=== PATIENT | female | born 1940 | race Caucasian/White ===

== ENCOUNTER 2021-04-05 11:15 | Emergency (ER) | payer MEDICARE, OTHER ==
--- NOTE | 2021-04-05 11:36 | ERPHSYRPT ---
- History of Present Illness Time Seen by Provider: 04/05/21 11:20 Source: patient Exam Limitations: no limitations Patient Subjective Stated Complaint: Left ankle injury Triage Nursing Assessment: Patient brought into ED via EMS and transferred to bed with assist of 2. Patient A +O X 3. Patient's skin pink, warm and dry. Patient complains of left outer ankle pain that started yesterday 07/22. Patient states yesterday eveving she was walking with her walker and heard a "pop" from her left ankle. Patient states the pain is left outer ankle. Swelling noted to left outer ankle. Physician History: Patient is a 80-year-old female presents to our emergency department for evaluation of left ankle pain. Patient states she was ambulating in her walker when she felt a pop sensation. This occurred yesterday. Patient states she ambulated with her walker this morning and felt another pop with sudden onset of pain primarily at the left lateral ankle. No twisting injuries observed. No falls. No fever. Patient arrived via EMS. She received 4 mg of morphine and 4 mg of Zofran in route. Patient is resting comfortably and declined additional pain medication. Pain described as an ache that is localized. No radiation. Pain worse with palpation and movement. Pain improved with rest. She voices no other complaints or concerns at this time. Method of Injury: other (Pain started while patient was ambulating with a walker. No falls or trauma. No injury observed otherwise.) Occurred: yesterday Quality: constant Severity of Pain-Max: moderate Severity of Pain-Current: mild Lower Extremities Pain: ankle: left Modifying Factors: Improves With: movement Associated Symptoms: none Allergies/Adverse Reactions: No Known Drug Allergies Allergy (Unverified 04/05/21 11:18) Hx Influenza Vaccination/Date Given: Yes Hx Pneumococcal Vaccination/Date Given: No Immunizations Up to Date: Yes Travel Risk - International Travel Have you traveled outside of the country in past 3 weeks: No - Coronavirus Screening Are you exhibiting any of the following symptoms?: No Close contact with a COVID-19 positive Pt in past 14-21 Days: No - Vaccine Status Have you recieved a Covid-19 vaccination: No - Review of Systems Constitutional: No Symptoms, No Fever, No Chills Eyes: No Symptoms Ears, Nose, & Throat: No Symptoms Respiratory: No Symptoms, No Cough, No Dyspnea Cardiac: No Symptoms, No Chest Pain, No Edema, No Syncope Abdominal/Gastrointestinal: No Symptoms, No Abdominal Pain, No Nausea, No Vomiting, No Diarrhea Genitourinary Symptoms: No Symptoms, No Dysuria Musculoskeletal: No Symptoms, No Back Pain, No Neck Pain Skin: No Symptoms, No Rash Neurological: No Symptoms, No Dizziness, No Focal Weakness, No Sensory Changes Psychological: No Symptoms Endocrine: No Symptoms Hematologic/Lymphatic: No Symptoms Immunological/Allergic: No Symptoms All Other Systems: Reviewed and Negative - Past Medical History Neurological History: No Pertinent History ENT History: No Pertinent History Cardiac History: Arrhythmia, High Cholesterol, Hypertension Endocrine Medical History: No Pertinent History Musculoskeletal History: No Pertinent History GI Medical History: No Pertinent History History: No Pertinent History Psycho-Social History: Anxiety Female Reproductive Disorders: No Pertinent History Other Medical History: a fib - Past Surgical History Past Surgical History: Yes Musculoskeletal: Orthopedic Surgery Other Surgical History: back surgery X 2 - Social History Smoking Status: Never smoker Exposure to second hand smoke: No Drug Use: none Patient Lives Alone: No - Nursing Vital Signs Nursing Vital Signs: Initial Vital Signs Temperature 97.6 F 04/05/21 11:18 Pulse Rate 113 H 04/05/21 11:18 Respiratory Rate 18 04/05/21 11:18 Blood Pressure 147/87 04/05/21 11:18 O2 Sat by Pulse Oximetry 94 L 04/05/21 11:18 Pain Scale Pain Intensity 3 - Physical Exam General Appearance: alert Eyes, Ears, Nose, Throat Exam: moist mucous membranes Neck Exam: non-tender, supple Cardiovascular/Respiratory Exam: chest non-tender, normal breath sounds, regular rate/rhythm, no respiratory distress Gastrointestinal/Abdominal Exam: non-tender, guarding Back Exam: normal inspection, No vertebral tenderness Hips Exam: bilateral: non-tender, normal inspection, normal range of motion, no evidence of injury Legs Exam: bilateral leg: non-tender, normal inspection, normal range of motion, no evidence of injury Knees Exam: bilateral knee: non-tender, normal inspection, normal range of motion, no evidence of injury Ankle Exam: right ankle: non-tender, normal inspection, normal range of motion, no evidence of injury, left ankle: pain, soft tissue tenderness, swelling, other (Left lower extremities neurovascular intact distally. Compartments are soft. Cap refill less than 2 seconds. PT DP pulse palpable. Tenderness to palpation lateral malleolus.) Foot Exam: bilateral foot: non-tender, normal inspection, normal range of motion, no evidence of injury, other (Chronic bilateral lower extremity pitting edema.) Neuro/Tendon Exam: normal sensation, normal motor functions Mental Status Exam: alert, oriented x 3, cooperative Skin Exam: normal color, warm, dry SpO2 Interpretation: normal SpO2: 94 O2 Delivery: Room Air - Course Nursing assessment & vital signs reviewed: Yes - Radiology Exams Ankle X-ray Interpretation: Teleradiologist Report (Mild osteopenia small plantar heel spur moderate soft tissue swelling and mild scattered vascular calcifications. No other bony articular or soft tissue abnormalities.) Ordered Tests: Active Orders 24 hr Category Date Time Status ANKLE (3 VIEWS) Stat Exams 04/05/21 11:22 Completed - Progress Progress: improved Progress Note: Patient reassessed. Pain is well controlled. X-ray negative for fracture dislocation. No indication for further work-up at this time. Patient voices no other complaints concerns this time. Portions of this note were created with voice recognition technology. There may be grammatical, spelling, punctuation or sound alike errors 04/05/21 12:13 Counseled pt/family regarding: diagnosis, need for follow-up, rad results - Departure Departure Disposition: Home Clinical Impression: Ankle pain, Osteopenia, Plantar heel spur, Vascular calcification Condition: Stable Critical Care Time: No Instructions: Ankle Sprain (DC) Additional Instructions: Discharge/Care Plan Tracy Siddiqui was seen on 04/05/21 in the Emergency Room. The patient was counseled regarding Diagnosis,Lab results, Imaging studies, need for follow up and when to return to the Emergency Room. Prescriptions given: Discharge Note I have spoken with the patient and/or caregivers. I have explained the patient's condition, diagnosis and treatment plan based on the information available to me at this time. I have answered the patient's and/or caregiver's questions and addressed any concerns. The patient and/or caregivers have as good understanding of the patient's diagnosis, condition and treatment plan as can be expected at this point. The vital signs have been stable. The patient's condition is stable and appropriate for discharge from the emergency department. The patient will pursue further outpatient evaluation with the primary care physician or other designated or consulting physician as outlined in the discharge instructions. The patient and/or caregivers are agreeable to this plan of care and follow-up instructions have been explained in detail. The patient and/or caregivers have received these instruction. The patient/and or caregivers are aware that any significant change in condition or worsening of symptoms should prompt an immediate return to this or the closest emergency department or call 911.
--- NOTE | 2021-04-05 12:08 | XRAY ---
Indication: Pain following injury. Comparison: None 3 view left ankle demonstrates mild osteopenia, small plantar heel spur, moderate soft tissue swelling, and mild scattered vascular calcifications. No other bony, articular, or soft tissue abnormalities.
[2021-04-05] MEDS ORDERED: TYLENOL 325 MG PO STA (12:36)
[2021-04-05] MEDS ORDERED: TYLENOL 325 MG ONE (12:37)
[2021-04-05 17:11] VITALS: BP 116/74; PULSE 107; O2SAT 97
== END 2021-04-05 12:55 | disposition home or self-care (01) ==
LOC: ED 11:15
DX: M25.572 Pain in left ankle and joints of left foot (principal); M85.872 Other specified disorders of bone density and structure, left ankle and foot; M77.32 Calcaneal spur, left foot; I70.202 Unspecified atherosclerosis of native arteries of extremities, left leg; I10 Essential (primary) hypertension; E78.5 Hyperlipidemia, unspecified
CPT/HCPCS: 73610; 99284; A9270-GY

== ENCOUNTER 2021-04-23 21:56 | Emergency (ER) | payer MEDICARE, OTHER ==
[2021-04-23 22:20] VITALS: O2SAT 97
--- NOTE | 2021-04-23 22:37 | ERPHSYRPT ---
- History of Present Illness Time Seen by Provider: 04/23/21 22:05 Patient Subjective Stated Complaint: Patient states she was in her bathroom around 9pm tonight and when she went to stand up from the toilet, she heard her left ankle pop and felt a sharp pain in it. She states the initial pain in her ankle was a #10 out of #10 until the MS that she received on the ambulance started to work. Current pain level is a #3. States pain is on the outside of her left foot and left ankle. Triage Nursing Assessment: Patient arrived to ED via ambulance. She is alert and oriented and answering questions appropriately. Patient noted to have edema to both BLE. Left outer foot/ankle is a little more swollen than the right foot/ankle. No bruising, redness, or warmth noted to LLE. She states skin tone to both BLE are normal for her related to her neuropathy. CMS checks to left foot/toes WNL. Pedal pulse present. Patient is not SOB but arrived wearing 02 at 2L per N/C due to MS administration in ambulance. Current 02 sats 97%. Physician History: Patient is an 80-year-old white female who presents with a complaint of ankle pain and foot pain. On the right side. She has had pain in the right ankle and foot for going on 3 weeks the pain has varied in intensity and she has been seen and x-rayed in our ER prior to tonight. Tonight she was on the commode she stood up and felt a pop in the right ankle and lateral foot and had increased pain which she rated 10 of 10. EMS treated her pain with EMS and brought her to the ER. Method of Injury: unknown Occurred: days ago Quality: intermittent, stabbing Severity of Pain-Max: moderate Severity of Pain-Current: mild Lower Extremities Pain: foot: right, ankle: right Modifying Factors: Improves With: movement Associated Symptoms: unable to bear weight, popping sensation Allergies/Adverse Reactions: No Known Drug Allergies Allergy (Verified 04/23/21 21:58) Hx Tetanus, Diphtheria Vaccination/Date Given: Yes Hx Influenza Vaccination/Date Given: Yes Hx Pneumococcal Vaccination/Date Given: No Immunizations Up to Date: Yes Travel Risk - International Travel Have you traveled outside of the country in past 3 weeks: No - Coronavirus Screening Are you exhibiting any of the following symptoms?: No Close contact with a COVID-19 positive Pt in past 14-21 Days: No - Vaccine Status Have you recieved a Covid-19 vaccination: No - Review of Systems Constitutional: No Fever, No Chills Eyes: No Symptoms Ears, Nose, & Throat: No Symptoms Respiratory: No Cough, No Dyspnea Cardiac: No Chest Pain, No Edema, No Syncope Abdominal/Gastrointestinal: No Abdominal Pain, No Nausea, No Vomiting, No Diarrhea Genitourinary Symptoms: No Dysuria Musculoskeletal: Joint Pain, No Back Pain, No Neck Pain Skin: No Rash Neurological: No Dizziness, No Focal Weakness, No Sensory Changes Psychological: No Symptoms Endocrine: No Symptoms All Other Systems: Reviewed and Negative - Past Medical History Pertinent Past Medical History: Yes Neurological History: Peripheral Neuropathy ENT History: No Pertinent History Cardiac History: Arrhythmia, High Cholesterol, Hypertension Respiratory History: No Pertinent History Endocrine Medical History: Diabetes Type II Musculoskeletal History: No Pertinent History GI Medical History: No Pertinent History History: No Pertinent History Psycho-Social History: Anxiety Female Reproductive Disorders: No Pertinent History Other Medical History: a fib, history of left ankle fracture that did not require surgery - Past Surgical History Past Surgical History: Yes Gastrointestinal: Cholecystectomy Musculoskeletal: Orthopedic Surgery Female Surgical History: Hysterectomy Other Surgical History: back surgery X 2, lumpectomy, 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) - Social History Smoking Status: Never smoker Exposure to second hand smoke: No Drug Use: none Patient Lives Alone: No - Female History Hx Now: No - Nursing Vital Signs Nursing Vital Signs: Initial Vital Signs Temperature 98.2 F 04/23/21 21:58 Pulse Rate 95 H 04/23/21 21:58 Respiratory Rate 16 04/23/21 21:58 Blood Pressure 143/91 04/23/21 21:58 O2 Sat by Pulse Oximetry 97 04/23/21 21:58 Pain Scale Pain Intensity 3 - Physical Exam General Appearance: mild distress Eyes, Ears, Nose, Throat Exam: moist mucous membranes Neck Exam: non-tender, supple Back Exam: normal inspection, normal range of motion Hips Exam: bilateral: non-tender, normal inspection Legs Exam: bilateral leg: non-tender, normal inspection Knees Exam: bilateral knee: non-tender, normal inspection Ankle Exam: right ankle: bone tenderness, pain, soft tissue tenderness Foot Exam: right foot: bone tenderness, soft tissue tenderness, swelling SpO2: 97 - Course Nursing assessment & vital signs reviewed: Yes - Radiology Exams Ankle X-ray Interpretation: Interpreted by me, Other (Somewhat displaced fracture of the left tibia and fibula) Ordered Tests: Active Orders 24 hr Category Date Time Status Splint STAT Care 04/23/21 22:53 Active ANKLE (3 VIEWS) Stat Exams 04/23/21 Taken FOOT (MINIMUM 3 VIEWS) Stat Exams 04/23/21 Taken - Progress Progress: improved - Departure Departure Disposition: Home Clinical Impression: Fracture of left tibia and fibula Condition: Stable Critical Care Time: No Referrals: CRUZ GONZALES, INTEL ANALYST [Primary Care Provider] - Follow up/PCP as directed Instructions: Shinbone Fracture (DC), Fibula Fracture (DC) Prescriptions: Hydrocodone/Acetaminophen [Hydrocodone-Acetamin 5-325 mg] 1 tab PO Q6HPRN PRN 3 Days #12 tablet MDD 4 PRN Reason: Pain
[2021-04-23] MEDS ORDERED: NORCO 5/325 MG PO ONE (23:02)
[2021-04-23] MEDS ORDERED: MORPHINE SULFATE 4 MG INJ IV ONE (23:04)
[2021-04-23] MEDS ORDERED: NORCO 5/325 MG ONE (23:14)
[2021-04-23] MEDS ORDERED: MORPHINE SULFATE 4 MG INJ ONE (23:15)
[2021-04-24 00:13] VITALS: BP 128/70; PULSE 71
--- NOTE | 2021-04-24 07:47 | XRAY ---
Indication: Pain following fall. Comparison: April 05, 2021. 3 view left ankle demonstrates new mild lateral angulated fractures of the distal shafts of tibia/fibula with soft tissue swelling. Tibial fracture appears comminuted. Again osteopenia and tiny heel spurs.
--- NOTE | 2021-04-24 07:49 | XRAY ---
Indication: Pain following fall. Comparison: None 3 nonweightbearing views left foot demonstrates osteopenia, mild 1st MTP bunion deformity, and tiny heel spurs. No other bony, articular, or soft tissue abnormalities. Tibia/fibula fractures reported separately.
== END 2021-04-24 00:58 | disposition home or self-care (01) ==
LOC: ED 21:56
DX: M84.462A Pathological fracture, left tibia, initial encounter for fracture (principal); M84.464A Pathological fracture, left fibula, initial encounter for fracture; E11.42 Type 2 diabetes mellitus with diabetic polyneuropathy; I10 Essential (primary) hypertension; E78.5 Hyperlipidemia, unspecified; Z79.891 Long term (current) use of opiate analgesic
CPT/HCPCS: 73610; 73630; 96374; 99284; J2270; L4386; A9270-GY

== ENCOUNTER 2024-01-15 01:10 | Inpatient (IN) | payer MEDICARE, OTHER ==
--- NOTE | 2024-01-15 01:22 | ERPHSYRPT ---
- History of Present Illness Time Seen by Provider: 01/15/24 01:20 Source: patient, family, EMS Exam Limitations: no limitations Physician History: 83yo f presents via EMS for sob x 1wk. Pt reports she has been having worsening sob for the past week, reports it worsened today. Pt's reports she has been more fatigued for the past 2 days as well as complaining of worsening sob. Pt denies any chest pain, does report significant hx of CHF and afib, is currently taking eliquis. Pt denies any recent fevers, denies any n/v/d or abdominal pain. Pt denies any recent hospitalizations or surgeries. Timing/Duration: week(s) (1), gradual onset Activities at Onset: none Severity of Pain-Max: none Severity of Pain-Current: none Modifying Factors: Improves With: nothing Nitro Today/Relief: no nitro taken today Aspirin Treatment Today: no aspirin today Allergies/Adverse Reactions: No Known Drug Allergies Allergy (Verified 01/15/24 01:34) Home Medications: Acetaminophen [Tylenol] 325 mg PO DAILY PRN PRN 01/15/24 [History] Alendronate Sodium 70 mg [Fosamax 70 MG] 70 mg PO WEEKLY 01/15/24 [History] Amiodarone HCl 200 mg [Cordarone 200 MG] 200 mg PO UD 01/15/24 [History] Apixaban [Eliquis 2.5 mg Tablet] 2.5 mg PO BID 01/15/24 [History] Aripiprazole [Abilify] 2 mg PO DAILY 01/15/24 [History] Calcium Carb, Citrate/Vit D3 [Calcium + D3 ER Tablet] 1 tab PO DAILY 01/15/24 [History] Dulaglutide [Trulicity] 0.75 mg IN WEEKLY 01/15/24 [History] Duloxetine HCl 60 mg PO HS 01/15/24 [History] Fluticasone/Vilanterol [Breo Ellipta 100-25 Mcg Inhalr] 1 inhaler IH DAILY 01/15/24 [History] Furosemide 20 mg [Lasix 20 mg] 20 mg PO BID 01/15/24 [History] Gabapentin 400 mg PO DAILY 01/15/24 [History] Levothyroxine Sodium 100 Mcg [Synthroid 100 Mcg] 100 mcg PO DAILY 01/15/24 [History] Losartan Potassium 50 mg PO DAILY 01/15/24 [History] Meloxicam 7.5 mg PO DAILY 01/15/24 [History] Metoprolol Succinate 50 mg PO BID 01/15/24 [History] Multivitamin/Iron/Folic Acid [Centrum Adults Tablet] 1 tab PO DAILY 01/15/24 [History] PANTOPRAZOLE 40 mg Tablet [Protonix 40MG Tablet] 40 mg PO DAILY 01/15/24 [History] Potassium Citrate [Potassium Citrate ER] 10 meq PO BID 01/15/24 [History] Pravastatin Sodium 20 mg PO DAILY 01/15/24 [History] dilTIAZem HCL [Cardizem Cd] 300 mg PO DAILY 01/15/24 [History] Hx Tetanus, Diphtheria Vaccination/Date Given: Yes Hx Influenza Vaccination/Date Given: Yes Hx Pneumococcal Vaccination/Date Given: No - Review of Systems Constitutional: Fatigue, No Fever, No Chills Respiratory: Cough, Dyspnea, Dyspnea on Exertion (CHERY), No Stridor, No Wheezing Cardiac: Edema, Orthopnea, No Chest Pain, No Palpitations, No Syncope Abdominal/Gastrointestinal: No Symptoms - Past Medical History Pertinent Past Medical History: Yes Neurological History: Peripheral Neuropathy ENT History: No Pertinent History Cardiac History: Arrhythmia, High Cholesterol, Hypertension Respiratory History: No Pertinent History Endocrine Medical History: Diabetes Type II Musculoskeletal History: No Pertinent History GI Medical History: No Pertinent History History: No Pertinent History Psycho-Social History: Anxiety Female Reproductive Disorders: No Pertinent History Other Medical History: a fib, history of left ankle fracture that did not require surgery - Past Surgical History Past Surgical History: Yes Gastrointestinal: Cholecystectomy Musculoskeletal: Orthopedic Surgery Female Surgical History: Hysterectomy Other Surgical History: back surgery X 2, lumpectomy, 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) - Social History Smoking Status: Never smoker Exposure to second hand smoke: No Drug Use: none Patient Lives Alone: No - Nursing Vital Signs Nursing Vital Signs: Initial Vital Signs Temperature 97.5 F 01/15/24 01:11 Pulse Rate 108 H 01/15/24 01:11 Respiratory Rate 12 01/15/24 01:11 Blood Pressure 162/107 01/15/24 01:11 O2 Sat by Pulse Oximetry 95 01/15/24 01:11 Pain Scale Pain Intensity 5 - Physical Exam General Appearance: no apparent distress, alert, lethargy Eye Exam: PERRL/EOMI, eyes nml inspection Respiratory Exam: airway intact, diminished breath sounds, crackles/rales, No chest tenderness, No respiratory distress, No rhonchi, No wheezing, No stridor Cardiovascular Exam: irregular (irregularly irregular rhythm), edema (3+ b/l LE edema) Gastrointestinal/Abdomen Exam: soft, normal bowel sounds, No tenderness, No distention Neurologic Exam: alert, oriented x 3, cooperative Skin Exam: normal color, warm, dry SpO2 Interpretation: normal SpO2: 99 (5L) O2 Delivery: Nasal Cannula - Course EKG Interpreted by Me: RATE (88), A-fib, prolonged QT interval (509), Other (no acute ST elevations, not suggestive of acute ischemia) Ordered Tests: Active Orders 24 hr Category Date Time Status Srinivasan [Catheter-[place]itt[place] Srinivasan] STAT Care 01/15/24 01:41 Active IV Insertion STAT Care 01/15/24 01:30 Active IV Insertion-2nd Peripheral STAT Care 01/15/24 01:20 Active Oxygen-ED Only Nasal Cannula 5 lpm Care 01/15/24 01:35 Active CHEST 1 VIEW (PORTABLE) Stat Exams 01/15/24 01:20 Taken HEAD WITHOUT CONTRAST [CT] Stat Exams 01/15/24 02:05 Completed ARTERIAL BLOOD GASES Urgent Lab 01/15/24 01:31 Completed BLOOD CULTURE Stat Lab 01/15/24 02:01 Ordered CBC W DIFF Stat Lab 01/15/24 01:55 Completed CMP Stat Lab 01/15/24 01:55 Completed CULTURE,URINE Stat Lab 01/15/24 01:38 Received D-DIMER QUANTITATIVE Stat Lab 01/15/24 01:55 Completed Lactic Acid Stat Lab 01/15/24 01:30 Completed NT PRO BNPII Stat Lab 01/15/24 01:55 Completed PROCALCITONIN Stat Lab 01/15/24 02:01 Completed TROPONIN Q4H Lab 01/15/24 01:55 Completed TROPONIN Q4H Lab 01/15/24 05:30 Ordered TROPONIN Q4H Lab 01/15/24 09:30 Ordered UA W/RFX UR CULTURE Stat Lab 01/15/24 01:38 Completed BiPap/CPAP STAT RT 01/15/24 01:44 Active Medication Summary Generic Name Dose Route Start Last Admin Trade Name Maximiliano PRN Reason Stop Dose Admin Ceftriaxone Sodium 1 gm in 100 mls @ 200 mls/hr 01/15/24 02:47 01/15/24 02:50 Rocephin 1 Gm / 100 Ml Nacl IV 01/15/24 03:16 200 mls/hr STAT ONE 200 mls/hr Administration Discontinued Medications Generic Name Dose Route Start Last Admin Trade Name Maximiliano PRN Reason Stop Dose Admin Acetaminophen 650 mg 01/15/24 02:06 01/15/24 02:09 Acetaminophen 325 Mg Tablet PO 01/15/24 02:07 650 mg STAT ONE Administration Acetaminophen Confirm 01/15/24 02:08 Acetaminophen 325 Mg Tablet Administered 01/15/24 02:09 Dose 650 mg .ROUTE .STK-MED ONE Furosemide 40 mg 01/15/24 01:20 01/15/24 01:26 Furosemide 40 Mg/4 Ml Vial IV 01/15/24 01:21 40 mg STAT ONE Administration Furosemide Confirm 01/15/24 01:25 Furosemide 40 Mg/4 Ml Vial Administered 01/15/24 01:26 Dose 40 mg .ROUTE .STK-MED ONE Ceftriaxone Sodium Confirm 01/15/24 02:49 Rocephin 1 Gm / 100 Ml Nacl Administered 01/15/24 02:50 Dose 1 gm in 100 mls @ ud IV .STK-MED ONE Lab/Rad Data: Laboratory Result Diagrams 01/15/24 01:55 01/15/24 01:55 Laboratory Results 01/15/24 01/15/24 01/15/24 Range/Units 02:01 01:55 01:55 WBC (3.98-10.04) x10^3/uL RBC (3.93-5.22) x10^6/uL Hgb (11.2-15.7) g/dL Hct (34.1-44.9) % MCV (79.4-94.8) fL MCH (25.6-32.2) pg MCHC (32.2-35.5) g/dL RDW (11.7-14.4) % Plt Count (182-369) x10^3/uL MPV (9.4-12.3) fL Gran % (34.0-71.1) % Immature Gran % (Auto) (0.001-0.429) % Nucleat RBC Rel Count (0.00-0.2) % Eos # (Auto) (0.04-0.36) x10^3/uL Immature Gran # (Auto) (0.001-0.031) x10^3u/L Absolute Lymphs (auto) (1.18-3.74) x10^3/uL Absolute Monos (auto) (0.24-0.86) x10^3/uL Absolute Nucleated RBC (0.00-0.012) x10^3u/L Lymphocytes % (19.3-51.7) % Monocytes % (4.7-12.5) % Eosinophils % (0.7-5.8) % Basophils % (0.1-1.2) % Absolute Granulocytes (1.56-6.13) x10^3/uL Basophils # (0.01-0.08) x10^3/uL D-Dimer (0.0-0.50) mg/L Puncture Site pCO2 (35-45) mmHg pO2 (75-100) mmHg Base Excess (-2.0-2.0) O2 Saturation (94-100) g/dF ABG pH (7.35-7.45) ABG HCO3 (22-28) ABG O2 Sat (Measured) (95-100) % Loyd Test A-a Gradient a/A Ratio Hemoglobin Carboxyhemoglobin (0.0-6.9) % THgb Methemoglobin (1.4-1.5) % Potassium (3.5-5.1) Temperature C POC O2 Flow Rate % Vent Mode Vent Rate /MIN Tidal Volume cc PEEP cmH2O Expiratory BiPAP Sodium (135-145) mmol/L Chloride (98-107) mmol/L Carbon Dioxide (22-30) mmol/L Anion Gap (5-15) MEQ/L BUN (7-17) mg/dL Creatinine (0.52-1.04) mg/dL Estimated GFR ML/MIN Glucose (74-106) mg/dL Lactic Acid (0.4-2.0) Calcium (8.4-10.2) mg/dL Total Bilirubin (0.2-1.3) mg/dL AST (14-36) U/L ALT (0-35) U/L Alkaline Phosphatase (38-126) U/L Troponin I (0.000-0.033) ng/mL NT-Pro-B Natriuret Pep 819 (<300) pg/mL Serum Total Protein (6.3-8.2) g/dL Albumin (3.5-5.0) g/dL Procalcitonin 0.063 (0.030-0.080) ng/mL Urine Color (Yellow) Urine Appearance (Clear) Urine pH (4.6-8.0) Ur Specific Maurice (1.005-1.030) Urine Protein (Negative) Urine Glucose (UA) (Negative) mg/dL Urine Ketones (Negative) Urine Blood (Negative) Urine Nitrite (Negative) Urine Bilirubin (Negative) Urine Urobilinogen (0.2) mg/dL Ur Leukocyte Esterase (Negative) U Hyaline Cast (Auto) (0-2) /LPF Urine Microscopic RBC (0-5) /HPF Urine Microscopic WBC (0-5) /HPF Ur Epithelial Cells (None Seen) /HPF Urine Bacteria (None Seen) /HPF Urine Culture Reflexed (NO) Influenza Type A Ag NEGATIVE (NEGATIVE) Influenza Type B Ag NEGATIVE (NEGATIVE) RSV (PCR) NEGATIVE (NEGATIVE) SARS-CoV-2 (PCR) NEGATIVE (NEGATIVE) 01/15/24 01/15/24 01/15/24 Range/Units 01:55 01:55 01:55 WBC (3.98-10.04) x10^3/uL RBC (3.93-5.22) x10^6/uL Hgb (11.2-15.7) g/dL Hct (34.1-44.9) % MCV (79.4-94.8) fL MCH (25.6-32.2) pg MCHC (32.2-35.5) g/dL RDW (11.7-14.4) % Plt Count (182-369) x10^3/uL MPV (9.4-12.3) fL Gran % (34.0-71.1) % Immature Gran % (Auto) (0.001-0.429) % Nucleat RBC Rel Count (0.00-0.2) % Eos # (Auto) (0.04-0.36) x10^3/uL Immature Gran # (Auto) (0.001-0.031) x10^3u/L Absolute Lymphs (auto) (1.18-3.74) x10^3/uL Absolute Monos (auto) (0.24-0.86) x10^3/uL Absolute Nucleated RBC (0.00-0.012) x10^3u/L Lymphocytes % (19.3-51.7) % Monocytes % (4.7-12.5) % Eosinophils % (0.7-5.8) % Basophils % (0.1-1.2) % Absolute Granulocytes (1.56-6.13) x10^3/uL Basophils # (0.01-0.08) x10^3/uL D-Dimer 0.50 (0.0-0.50) mg/L Puncture Site pCO2 (35-45) mmHg pO2 (75-100) mmHg Base Excess (-2.0-2.0) O2 Saturation (94-100) g/dF ABG pH (7.35-7.45) ABG HCO3 (22-28) ABG O2 Sat (Measured) (95-100) % Loyd Test A-a Gradient a/A Ratio Hemoglobin Carboxyhemoglobin (0.0-6.9) % THgb Methemoglobin (1.4-1.5) % Potassium 4.1 (3.5-5.1) Temperature C POC O2 Flow Rate % Vent Mode Vent Rate /MIN Tidal Volume cc PEEP cmH2O Expiratory BiPAP Sodium 134 L (135-145) mmol/L Chloride 95 L (98-107) mmol/L Carbon Dioxide 29 (22-30) mmol/L Anion Gap 13.6 (5-15) MEQ/L BUN 14 (7-17) mg/dL Creatinine 0.60 (0.52-1.04) mg/dL Estimated GFR 89.0 ML/MIN Glucose 115 H (74-106) mg/dL Lactic Acid (0.4-2.0) Calcium 8.9 (8.4-10.2) mg/dL Total Bilirubin 0.90 (0.2-1.3) mg/dL AST 36 (14-36) U/L ALT 22 (0-35) U/L Alkaline Phosphatase 115 (38-126) U/L Troponin I < 0.012 (0.000-0.033) ng/mL NT-Pro-B Natriuret Pep (<300) pg/mL Serum Total Protein 7.1 (6.3-8.2) g/dL Albumin 3.7 (3.5-5.0) g/dL Procalcitonin (0.030-0.080) ng/mL Urine Color (Yellow) Urine Appearance (Clear) Urine pH (4.6-8.0) Ur Specific Maurice (1.005-1.030) Urine Protein (Negative) Urine Glucose (UA) (Negative) mg/dL Urine Ketones (Negative) Urine Blood (Negative) Urine Nitrite (Negative) Urine Bilirubin (Negative) Urine Urobilinogen (0.2) mg/dL Ur Leukocyte Esterase (Negative) U Hyaline Cast (Auto) (0-2) /LPF Urine Microscopic RBC (0-5) /HPF Urine Microscopic WBC (0-5) /HPF Ur Epithelial Cells (None Seen) /HPF Urine Bacteria (None Seen) /HPF Urine Culture Reflexed (NO) Influenza Type A Ag (NEGATIVE) Influenza Type B Ag (NEGATIVE) RSV (PCR) (NEGATIVE) SARS-CoV-2 (PCR) (NEGATIVE) 01/15/24 01/15/24 01/15/24 Range/Units 01:55 01:38 01:31 WBC 9.8 (3.98-10.04) x10^3/uL RBC 3.23 L (3.93-5.22) x10^6/uL Hgb 10.9 L (11.2-15.7) g/dL Hct 34.3 (34.1-44.9) % MCV 106.2 H (79.4-94.8) fL MCH 33.7 H (25.6-32.2) pg MCHC 31.8 L (32.2-35.5) g/dL RDW 13.3 (11.7-14.4) % Plt Count 324 (182-369) x10^3/uL MPV 8.7 L (9.4-12.3) fL Gran % 70.8 (34.0-71.1) % Immature Gran % (Auto) 0.6 H (0.001-0.429) % Nucleat RBC Rel Count 0.0 (0.00-0.2) % Eos # (Auto) 0.26 (0.04-0.36) x10^3/uL Immature Gran # (Auto) 0.06 H (0.001-0.031) x10^3u/L Absolute Lymphs (auto) 1.33 (1.18-3.74) x10^3/uL Absolute Monos (auto) 1.18 H (0.24-0.86) x10^3/uL Absolute Nucleated RBC 0.00 (0.00-0.012) x10^3u/L Lymphocytes % 13.6 L (19.3-51.7) % Monocytes % 12.0 (4.7-12.5) % Eosinophils % 2.7 (0.7-5.8) % Basophils % 0.3 (0.1-1.2) % Absolute Granulocytes 6.95 H (1.56-6.13) x10^3/uL Basophils # 0.03 (0.01-0.08) x10^3/uL D-Dimer (0.0-0.50) mg/L Puncture Site LEFT BRACHIAL pCO2 43 (35-45) mmHg pO2 401 H* (75-100) mmHg Base Excess 3.0 H (-2.0-2.0) O2 Saturation 98.4 (94-100) g/dF ABG pH 7.42 (7.35-7.45) ABG HCO3 27.9 (22-28) ABG O2 Sat (Measured) 100.0 (95-100) % Loyd Test NOT APPLICABLE A-a Gradient 258 a/A Ratio 0.61 Hemoglobin 11.5 Carboxyhemoglobin 1.2 (0.0-6.9) % THgb Methemoglobin 0.3 L (1.4-1.5) % Potassium 3.8 (3.5-5.1) Temperature 37.0 C POC O2 Flow Rate 100 % Vent Mode BIPAP Vent Rate 16 /MIN Tidal Volume 550 cc PEEP 5 cmH2O Expiratory BiPAP 5 Sodium (135-145) mmol/L Chloride (98-107) mmol/L Carbon Dioxide (22-30) mmol/L Anion Gap (5-15) MEQ/L BUN (7-17) mg/dL Creatinine (0.52-1.04) mg/dL Estimated GFR ML/MIN Glucose (74-106) mg/dL Lactic Acid (0.4-2.0) Calcium (8.4-10.2) mg/dL Total Bilirubin (0.2-1.3) mg/dL AST (14-36) U/L ALT (0-35) U/L Alkaline Phosphatase (38-126) U/L Troponin I (0.000-0.033) ng/mL NT-Pro-B Natriuret Pep (<300) pg/mL Serum Total Protein (6.3-8.2) g/dL Albumin (3.5-5.0) g/dL Procalcitonin (0.030-0.080) ng/mL Urine Color Dark Yellow A (Yellow) Urine Appearance Cloudy A (Clear) Urine pH 6.0 (4.6-8.0) Ur Specific Maurice >=1.030 A (1.005-1.030) Urine Protein 30 (Negative) Urine Glucose (UA) Negative (Negative) mg/dL Urine Ketones Trace A (Negative) Urine Blood Negative (Negative) Urine Nitrite Positive A (Negative) Urine Bilirubin Negative (Negative) Urine Urobilinogen 1.0 A (0.2) mg/dL Ur Leukocyte Esterase Negative (Negative) U Hyaline Cast (Auto) NONE SEEN (0-2) /LPF Urine Microscopic RBC 6-10 A (0-5) /HPF Urine Microscopic WBC 11-20 A (0-5) /HPF Ur Epithelial Cells None Seen (None Seen) /HPF Urine Bacteria Many A (None Seen) /HPF Urine Culture Reflexed YES (NO) Influenza Type A Ag (NEGATIVE) Influenza Type B Ag (NEGATIVE) RSV (PCR) (NEGATIVE) SARS-CoV-2 (PCR) (NEGATIVE) 01/15/24 Range/Units 01:30 WBC (3.98-10.04) x10^3/uL RBC (3.93-5.22) x10^6/uL Hgb (11.2-15.7) g/dL Hct (34.1-44.9) % MCV (79.4-94.8) fL MCH (25.6-32.2) pg MCHC (32.2-35.5) g/dL RDW (11.7-14.4) % Plt Count (182-369) x10^3/uL MPV (9.4-12.3) fL Gran % (34.0-71.1) % Immature Gran % (Auto) (0.001-0.429) % Nucleat RBC Rel Count (0.00-0.2) % Eos # (Auto) (0.04-0.36) x10^3/uL Immature Gran # (Auto) (0.001-0.031) x10^3u/L Absolute Lymphs (auto) (1.18-3.74) x10^3/uL Absolute Monos (auto) (0.24-0.86) x10^3/uL Absolute Nucleated RBC (0.00-0.012) x10^3u/L Lymphocytes % (19.3-51.7) % Monocytes % (4.7-12.5) % Eosinophils % (0.7-5.8) % Basophils % (0.1-1.2) % Absolute Granulocytes (1.56-6.13) x10^3/uL Basophils # (0.01-0.08) x10^3/uL D-Dimer (0.0-0.50) mg/L Puncture Site pCO2 (35-45) mmHg pO2 (75-100) mmHg Base Excess (-2.0-2.0) O2 Saturation (94-100) g/dF ABG pH (7.35-7.45) ABG HCO3 (22-28) ABG O2 Sat (Measured) (95-100) % Loyd Test A-a Gradient a/A Ratio Hemoglobin Carboxyhemoglobin (0.0-6.9) % THgb Methemoglobin (1.4-1.5) % Potassium (3.5-5.1) Temperature C POC O2 Flow Rate % Vent Mode Vent Rate /MIN Tidal Volume cc PEEP cmH2O Expiratory BiPAP Sodium (135-145) mmol/L Chloride (98-107) mmol/L Carbon Dioxide (22-30) mmol/L Anion Gap (5-15) MEQ/L BUN (7-17) mg/dL Creatinine (0.52-1.04) mg/dL Estimated GFR ML/MIN Glucose (74-106) mg/dL Lactic Acid 1.3 (0.4-2.0) Calcium (8.4-10.2) mg/dL Total Bilirubin (0.2-1.3) mg/dL AST (14-36) U/L ALT (0-35) U/L Alkaline Phosphatase (38-126) U/L Troponin I (0.000-0.033) ng/mL NT-Pro-B Natriuret Pep (<300) pg/mL Serum Total Protein (6.3-8.2) g/dL Albumin (3.5-5.0) g/dL Procalcitonin (0.030-0.080) ng/mL Urine Color (Yellow) Urine Appearance (Clear) Urine pH (4.6-8.0) Ur Specific Maurice (1.005-1.030) Urine Protein (Negative) Urine Glucose (UA) (Negative) mg/dL Urine Ketones (Negative) Urine Blood (Negative) Urine Nitrite (Negative) Urine Bilirubin (Negative) Urine Urobilinogen (0.2) mg/dL Ur Leukocyte Esterase (Negative) U Hyaline Cast (Auto) (0-2) /LPF Urine Microscopic RBC (0-5) /HPF Urine Microscopic WBC (0-5) /HPF Ur Epithelial Cells (None Seen) /HPF Urine Bacteria (None Seen) /HPF Urine Culture Reflexed (NO) Influenza Type A Ag (NEGATIVE) Influenza Type B Ag (NEGATIVE) RSV (PCR) (NEGATIVE) SARS-CoV-2 (PCR) (NEGATIVE) - Progress Progress: improved Air Movement: fair Progress Note: 01/15/24 02:06 in setting of lethargy and increased fatigue w/ sudden improvement in alert mentation - will order CT to evaluate CVA 01/15/24 03:01 labs suggestive of UTI, not suggestive of ACS, CT head negative for acute hemorrhage dose of 1g rocephin given in ED weaning O2, pt on 2L saturating 96% pt reports significant improvement in sob and fatigue i discussed admission for obs w/ hospitalist Dr Brown who is willing to accept Blood Culture(s) Obtained: Yes Antibiotics given: Yes Counseled pt/family regarding: lab results, diagnosis, need for follow-up, rad results Medical Desision Making - Discussion of managment Care discussed with:: hospitalist Reviewed:: Test results Agreed on:: place in obs Will see patient: in hospital - Diagnostic Testing Diagnostic test were ordered, analyzed, and reviewed by me: Yes Radiological Interpretation: Interpreted by me, Reviewed by me, Teleradiologist Report - Risk of complications The pt has a high risk of morbidity or mortality based on: Decision regarding hospitilization or escalation of hosp level of care - Departure Departure Disposition: Observation Clinical Impression: Acute hypoxic respiratory failure UTI (urinary tract infection) Qualifiers: Urinary tract infection type: acute cystitis Hematuria presence: without hematuria Qualified Code(s): N30.00 - Acute cystitis without hematuria Condition: Stable Critical Care Time: No Referrals: CRUZ GONZALES, BILL PEDDLER [Primary Care Provider] - Follow up/PCP as directed
[2024-01-15] MEDS ORDERED: Lasix 40 MG/4 ML ONE (01:25)
[2024-01-15] MEDS: Lasix 40 MG/4 ML IV ONE (01:26)
[2024-01-15 01:36] LABS: A-aADO2 258; ABG HEMOGLOBIN 11.5; ABG POTASSIUM 3.8 (3.5-5.1); ARTERIAL BLOOD GAS FIO2 100 %; ARTERIAL BLOOD GAS PCO2 43 mmHg (35-45); ARTERIAL BLOOD GAS PO2 401 mmHg (75-100); ARTERIAL BLOOD GAS pH 7.42 (7.35-7.45); CARBOXYHEMOGLOBIN 1.2 % THgb (0.0-6.9); HCO3- 27.9 (22-28); HGB O2 SAT 98.4 g/dF (94-100); Methhemoglobin 0.3 % (1.4-1.5); paO2 pAO1 0.61
[2024-01-15 01:37] LABS: ABG SITE LEFT BRACHIAL; ARTERIAL BLD GAS TIDAL VOLUME 550 cc; ARTERIAL BLOOD GAS VENT MODE BIPAP; ARTERIAL BLOOD GAS VENT RATE 16 /MIN; BIPAP(E) 5
[2024-01-15 01:41] LABS: ARTERIAL BLOOD GAS PEEP 5 cmH2O
[2024-01-15 02:01] LABS: Absolute Neutrophil Ct (ANC) 6.95 x10^3/uL (1.56-6.13); BASOPHIL % 0.3 % (0.1-1.2); Basophil (Absolute #) 0.03 x10^3/uL (0.01-0.08); Eosinophil % 2.7 % (0.7-5.8); Eosinophil (Absolute #) 0.26 x10^3/uL (0.04-0.36); Hematocrit 34.3 % (34.1-44.9); Hemoglobin 10.9 g/dL (11.2-15.7); IMMATURE GRAN # 0.06 x10^3u/L (0.001-0.031); IMMATURE GRAN % 0.6 % (0.001-0.429); Lymphocyte (Absolute #) 1.33 x10^3/uL (1.18-3.74); Lymphocytes % 13.6 % (19.3-51.7); Mean Cell Volume 106.2 fL (79.4-94.8); Mean Corpuscular Hemoglobin 33.7 pg (25.6-32.2); Mean Corpuscular Hgb Concent. 31.8 g/dL (32.2-35.5); Mean Platelet Volume 8.7 fL (9.4-12.3); Monocyte (Absolute #) 1.18 x10^3/uL (0.24-0.86); Neutrophil % 70.8 % (34.0-71.1); Platelet Count 324 x10^3/uL (182-369); Red Blood Count 3.23 x10^6/uL (3.93-5.22); Red Cell Distribution Width 13.3 % (11.7-14.4); White Blood Count 9.8 x10^3/uL (3.98-10.04)
[2024-01-15] MEDS ORDERED: TYLENOL 325 MG ONE (02:08)
[2024-01-15] MEDS: TYLENOL 325 MG PO ONE (02:09)
[2024-01-15 02:15] LABS: ALBUMIN 3.7 g/dL (3.5-5.0); ANION GAP 13.6 MEQ/L (5-15); BILIRUBIN,TOTAL 0.9 mg/dL (0.2-1.3); Calcium 8.9 mg/dL (8.4-10.2); Creatinine 1 0.6 mg/dL (0.52-1.04); Potassium 4.1 mmol/L (3.5-5.1); Total Protein 7.1 g/dL (6.3-8.2)
[2024-01-15 02:23] LABS: Appearance Cloudy (Clear); Bacteria Many /HPF (None Seen); Bilirubin Negative (Negative); Blood Negative (Negative); Epithelial Cells None Seen /HPF (None Seen); Glucose, Urine Negative (Negative); Hyaline Casts NONE SEEN /LPF (0-2); Ketones Trace (Negative); Leukocyte Esterase Negative (Negative); Nitrite Positive (Negative); Protein,Urine Dip 30 (Negative); Specific Gravity >=1.030 (1.005-1.030)
[2024-01-15 02:26] LABS: ADD URINE CULTURE? YES (NO)
[2024-01-15 02:41] LABS: INFLUENZA A NEGATIVE (NEGATIVE); INFLUENZA B NEGATIVE (NEGATIVE); RESPIRATORY SYNCTIAL VIRUS NEGATIVE (NEGATIVE); SARS-CoV-2 Xpert Express NEGATIVE (NEGATIVE)
[2024-01-15] MEDS ORDERED: ROCEPHIN 1 GM / 100 ML NaCl 1 GM/100 ML IVPB IV ONE (02:49)
--- NOTE | 2024-01-15 02:49 | XRAY ---
CLINICAL HISTORY: AMS COMPARISON: None. TECHNIQUE: An axial non-contrast CT scan of the brain was performed from the skull base to the high parietal region. Coronal and sagittal reformats are available. One of the following dose reduction techniques was utilized for this exam. Automated exposure control, adjustment of the mA and/or kV according to patient size, and use of iterative reconstruction. FINDINGS: No acute intracranial hemorrhage, recent territorial infarction or space-occupying lesion is noted. No extradural/subdural hematoma or collection is present. There are accentuated white matter hypodensities in both the cerebral hemispheres suggestive of microvascular ischemic changes. Few chronic lacunar infarcts are noted in the bilateral basal ganglia/capsulo-ganglionic region. Mild age-appropriate involutional changes are seen in the brain evident by widened extra-axial CSF spaces, deepened cortical sulci, prominent sylvian fissures and mildly dilated ventricular system. No midline shift seen or herniation seen. Bilateral basal ganglia and thalami are unremarkable. Posterior fossa structures appear unremarkable. No lesion seen in both orbital cavities and at both cerebellopontine angles. Inflammatory changes are seen in the right-sided paranasal sinuses. No aggressive osseous lesion was identified. IMPRESSION: 1. No definite acute intracranial abnormality is appreciated. Early acute/hyperacute ischemic event may not be entirely excluded on CT. Correlation with MRI brain (stroke protocol) is recommended. 2. Chronic microvascular ischemic changes. 3. Few chronic lacunar infarcts are noted in the bilateral basal ganglia/capsulo-ganglionic region. 4. Mild age-appropriate involutional changes are seen in the brain. [facility] ER was called at [phone] at 1:42 AM JUTE BAG SEWER, 01/15/2024 and negative stroke results were verbally communicated to Fermin Swain Electronically Signed by: Daniel Fatima MD. (01/15/2024 02:44:20 EDT)
[2024-01-15] MEDS: ROCEPHIN 1 GM / 100 ML NaCl 1 GM/100 ML IVPB IV ONE (02:50)
--- NOTE | 2024-01-15 04:38 | PCM.HP ---
History of Present Illness - Chief Complaint Chief Complaint: UTI History of Present Illness: is a 83 year old female with CHF, afib presented with shortness of breath in the ED and found to be hypoxic 88% on room air that improved with duonebs and supplemental oxygen, found to have a UTI as well and treated with rocephin. Pt denies chest pain, shortness of breath at the moment, nausea, vomiting, diarrhea or recent illness. Does not smoke. ED provider wanted to watch overnight due to hypoxia in the ED when the patient arrived. She was 100% on 2 liters during our visit, with plans to wean in the AM. - Review of Systems Constitutional: No Fever, No Chills Eyes: No Symptoms Ears, Nose, & Throat: No Symptoms Respiratory: No Cough, No Short Of Breath Cardiac: No Chest Pain, No Edema, No Syncope Abdominal/Gastrointestinal: No Abdominal Pain, No Nausea, No Vomiting, No Diarrhea Genitourinary Symptoms: No Dysuria Musculoskeletal: No Back Pain, No Neck Pain Skin: No Rash Neurological: No Dizziness, No Focal Weakness, No Sensory Changes Psychological: No Symptoms Endocrine: No Symptoms Hematologic/Lymphatic: No Symptoms Immunological/Allergic: No Symptoms Medications & Allergies Home Medications: Home Medication List Acetaminophen [Tylenol] 325 mg PO DAILY PRN PRN 01/15/24 [History Confirmed 01/15/24] Alendronate Sodium 70 mg [Fosamax 70 MG] 70 mg PO WEEKLY 01/15/24 [History Confirmed 01/15/24] Amiodarone HCl 200 mg [Cordarone 200 MG] 200 mg PO UD 01/15/24 [History Confirmed 01/15/24] Apixaban [Eliquis 2.5 mg Tablet] 2.5 mg PO BID 01/15/24 [History Confirmed 01/15/24] Aripiprazole [Abilify] 2 mg PO DAILY 01/15/24 [History Confirmed 01/15/24] Calcium Carb, Citrate/Vit D3 [Calcium + D3 ER Tablet] 1 tab PO DAILY 01/15/24 [History Confirmed 01/15/24] Dulaglutide [Trulicity] 0.75 mg IN WEEKLY 01/15/24 [History Confirmed 01/15/24] Duloxetine HCl 60 mg PO HS 01/15/24 [History Confirmed 01/15/24] Fluticasone/Vilanterol [Breo Ellipta 100-25 Mcg Inhalr] 1 inhaler IH DAILY 01/15/24 [History Confirmed 01/15/24] Furosemide 20 mg [Lasix 20 mg] 20 mg PO BID 01/15/24 [History Confirmed 01/15/24] Gabapentin 400 mg PO DAILY 01/15/24 [History Confirmed 01/15/24] Levothyroxine Sodium 100 Mcg [Synthroid 100 Mcg] 100 mcg PO DAILY 01/15/24 [History Confirmed 01/15/24] Losartan Potassium 50 mg PO DAILY 01/15/24 [History Confirmed 01/15/24] Meloxicam 7.5 mg PO DAILY 01/15/24 [History Confirmed 01/15/24] Metoprolol Succinate 50 mg PO BID 01/15/24 [History Confirmed 01/15/24] Multivitamin/Iron/Folic Acid [Centrum Adults Tablet] 1 tab PO DAILY 01/15/24 [History Confirmed 01/15/24] PANTOPRAZOLE 40 mg Tablet [Protonix 40MG Tablet] 40 mg PO DAILY 01/15/24 [History Confirmed 01/15/24] Potassium Citrate [Potassium Citrate ER] 10 meq PO BID 01/15/24 [History Confirmed 01/15/24] Pravastatin Sodium 20 mg PO DAILY 01/15/24 [History Confirmed 01/15/24] dilTIAZem HCL [Cardizem Cd] 300 mg PO DAILY 01/15/24 [History Confirmed 01/15/24] Allergies/Adverse Reactions: Allergies Allergy/AdvReac Type Severity Reaction Status Date / Time No Known Drug Allergies Allergy Verified 01/15/24 01:34 - Past Medical History Past Medical History: Yes Neurological History: Peripheral Neuropathy ENT History: No Pertinent History Cardiac History: Arrhythmia, High Cholesterol, Hypertension Respiratory History: No Pertinent History, CHF Endocrine Medical History: Diabetes Type II Musculoskelatal History: No Pertinent History GI Medical History: No Pertinent History History: No Pertinent History Pyscho-Social History: Anxiety Reproductive Disorders: No Pertinent History Comment: a fib, history of left ankle fracture that did not require surgery - Past Surgical History Past Surgical History: Yes Neuro Surgical History: No Pertinent History Cardiac History: No Pertinent History Respiratory Surgery: No Pertinent History GI Surgical History: Cholecystectomy Genitourinary Surgical Hx: No Pertinent History Musculskeletal Surgical Hx: Orthopedic Surgery Female Surgical History: Hysterectomy Other Surgical History: 2 left ankle surgeries, rupa in left leg, back surgery X 2, lumpectomy, 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) - Social History Smoking Status: Never smoker Exposure to second hand smoke: No Alcohol: None Drug Use: none - Social Determinants of Health Will the patient participate in the screening: Yes Do you worry about a steady place to live?: No Do you have any problems with any of the following?: No known problems In the past 12 months,have you had to go without utilities?: No Have you or anyone in your house had to go without enough: No Transportation Issues: No Has anyone in your support network made you feel unsafe?: No - Physical Exam Vital Signs: Vital Signs - 24 hr Temp Pulse Resp BP BP Pulse Ox 01/15/24 03:07 99 01/15/24 03:01 85 13 176/95 95 01/15/24 02:32 94 H 16 160/74 95 01/15/24 02:01 80 20 134/77 96 01/15/24 01:46 78 26 H 122/62 97 01/15/24 01:31 82 19 147/84 99 01/15/24 01:11 97.5 F 108 H 19 162/107 95 Results - Labs Lab/Micro Results: Lab Results-Last 24 Hours 01/15/24 01/15/24 01/15/24 Range/Units 01:30 01:31 01:38 WBC (3.98-10.04) x10^3/uL RBC (3.93-5.22) x10^6/uL Hgb (11.2-15.7) g/dL Hct (34.1-44.9) % MCV (79.4-94.8) fL MCH (25.6-32.2) pg MCHC (32.2-35.5) g/dL RDW (11.7-14.4) % Plt Count (182-369) x10^3/uL MPV (9.4-12.3) fL Gran % (34.0-71.1) % Immature Gran % (Auto) (0.001-0.429) % Nucleat RBC Rel Count (0.00-0.2) % Eos # (Auto) (0.04-0.36) x10^3/uL Immature Gran # (Auto) (0.001-0.031) x10^3u/L Absolute Lymphs (auto) (1.18-3.74) x10^3/uL Absolute Monos (auto) (0.24-0.86) x10^3/uL Absolute Nucleated RBC (0.00-0.012) x10^3u/L Lymphocytes % (19.3-51.7) % Monocytes % (4.7-12.5) % Eosinophils % (0.7-5.8) % Basophils % (0.1-1.2) % Absolute Granulocytes (1.56-6.13) x10^3/uL Basophils # (0.01-0.08) x10^3/uL D-Dimer (0.0-0.50) mg/L Puncture Site LEFT BRACHIAL pCO2 43 (35-45) mmHg pO2 401 H* (75-100) mmHg Base Excess 3.0 H (-2.0-2.0) O2 Saturation 98.4 (94-100) g/dF ABG pH 7.42 (7.35-7.45) ABG HCO3 27.9 (22-28) ABG O2 Sat (Measured) 100.0 (95-100) % Loyd Test NOT APPLICABLE A-a Gradient 258 a/A Ratio 0.61 Hemoglobin 11.5 Carboxyhemoglobin 1.2 (0.0-6.9) % THgb Methemoglobin 0.3 L (1.4-1.5) % Potassium 3.8 (3.5-5.1) Temperature 37.0 C POC O2 Flow Rate 100 % Vent Mode BIPAP Vent Rate 16 /MIN Tidal Volume 550 cc PEEP 5 cmH2O Expiratory BiPAP 5 Sodium (135-145) mmol/L Chloride (98-107) mmol/L Carbon Dioxide (22-30) mmol/L Anion Gap (5-15) MEQ/L BUN (7-17) mg/dL Creatinine (0.52-1.04) mg/dL Estimated GFR ML/MIN Glucose (74-106) mg/dL Lactic Acid 1.3 (0.4-2.0) Calcium (8.4-10.2) mg/dL Total Bilirubin (0.2-1.3) mg/dL AST (14-36) U/L ALT (0-35) U/L Alkaline Phosphatase (38-126) U/L Troponin I (0.000-0.033) ng/mL NT-Pro-B Natriuret Pep (<300) pg/mL Serum Total Protein (6.3-8.2) g/dL Albumin (3.5-5.0) g/dL Procalcitonin (0.030-0.080) ng/mL Urine Color Dark Yellow A (Yellow) Urine Appearance Cloudy A (Clear) Urine pH 6.0 (4.6-8.0) Ur Specific [place] >=1.030 A (1.005-1.030) Urine Protein 30 (Negative) Urine Glucose (UA) Negative (Negative) mg/dL Urine Ketones Trace A (Negative) Urine Blood Negative (Negative) Urine Nitrite Positive A (Negative) Urine Bilirubin Negative (Negative) Urine Urobilinogen 1.0 A (0.2) mg/dL Ur Leukocyte Esterase Negative (Negative) U Hyaline Cast (Auto) NONE SEEN (0-2) /LPF Urine Microscopic RBC 6-10 A (0-5) /HPF Urine Microscopic WBC 11-20 A (0-5) /HPF Ur Epithelial Cells None Seen (None Seen) /HPF Urine Bacteria Many A (None Seen) /HPF Urine Culture Reflexed YES (NO) Influenza Type A Ag (NEGATIVE) Influenza Type B Ag (NEGATIVE) RSV (PCR) (NEGATIVE) SARS-CoV-2 (PCR) (NEGATIVE) 01/15/24 01/15/24 01/15/24 Range/Units 01:55 01:55 01:55 WBC 9.8 (3.98-10.04) x10^3/uL RBC 3.23 L (3.93-5.22) x10^6/uL Hgb 10.9 L (11.2-15.7) g/dL Hct 34.3 (34.1-44.9) % MCV 106.2 H (79.4-94.8) fL MCH 33.7 H (25.6-32.2) pg MCHC 31.8 L (32.2-35.5) g/dL RDW 13.3 (11.7-14.4) % Plt Count 324 (182-369) x10^3/uL MPV 8.7 L (9.4-12.3) fL Gran % 70.8 (34.0-71.1) % Immature Gran % (Auto) 0.6 H (0.001-0.429) % Nucleat RBC Rel Count 0.0 (0.00-0.2) % Eos # (Auto) 0.26 (0.04-0.36) x10^3/uL Immature Gran # (Auto) 0.06 H (0.001-0.031) x10^3u/L Absolute Lymphs (auto) 1.33 (1.18-3.74) x10^3/uL Absolute Monos (auto) 1.18 H (0.24-0.86) x10^3/uL Absolute Nucleated RBC 0.00 (0.00-0.012) x10^3u/L Lymphocytes % 13.6 L (19.3-51.7) % Monocytes % 12.0 (4.7-12.5) % Eosinophils % 2.7 (0.7-5.8) % Basophils % 0.3 (0.1-1.2) % Absolute Granulocytes 6.95 H (1.56-6.13) x10^3/uL Basophils # 0.03 (0.01-0.08) x10^3/uL D-Dimer 0.50 (0.0-0.50) mg/L Puncture Site pCO2 (35-45) mmHg pO2 (75-100) mmHg Base Excess (-2.0-2.0) O2 Saturation (94-100) g/dF ABG pH (7.35-7.45) ABG HCO3 (22-28) ABG O2 Sat (Measured) (95-100) % Loyd Test A-a Gradient a/A Ratio Hemoglobin Carboxyhemoglobin (0.0-6.9) % THgb Methemoglobin (1.4-1.5) % Potassium 4.1 (3.5-5.1) Temperature C POC O2 Flow Rate % Vent Mode Vent Rate /MIN Tidal Volume cc PEEP cmH2O Expiratory BiPAP Sodium 134 L (135-145) mmol/L Chloride 95 L (98-107) mmol/L Carbon Dioxide 29 (22-30) mmol/L Anion Gap 13.6 (5-15) MEQ/L BUN 14 (7-17) mg/dL Creatinine 0.60 (0.52-1.04) mg/dL Estimated GFR 89.0 ML/MIN Glucose 115 H (74-106) mg/dL Lactic Acid (0.4-2.0) Calcium 8.9 (8.4-10.2) mg/dL Total Bilirubin 0.90 (0.2-1.3) mg/dL AST 36 (14-36) U/L ALT 22 (0-35) U/L Alkaline Phosphatase 115 (38-126) U/L Troponin I (0.000-0.033) ng/mL NT-Pro-B Natriuret Pep (<300) pg/mL Serum Total Protein 7.1 (6.3-8.2) g/dL Albumin 3.7 (3.5-5.0) g/dL Procalcitonin (0.030-0.080) ng/mL Urine Color (Yellow) Urine Appearance (Clear) Urine pH (4.6-8.0) Ur Specific [place] (1.005-1.030) Urine Protein (Negative) Urine Glucose (UA) (Negative) mg/dL Urine Ketones (Negative) Urine Blood (Negative) Urine Nitrite (Negative) Urine Bilirubin (Negative) Urine Urobilinogen (0.2) mg/dL Ur Leukocyte Esterase (Negative) U Hyaline Cast (Auto) (0-2) /LPF Urine Microscopic RBC (0-5) /HPF Urine Microscopic WBC (0-5) /HPF Ur Epithelial Cells (None Seen) /HPF Urine Bacteria (None Seen) /HPF Urine Culture Reflexed (NO) Influenza Type A Ag (NEGATIVE) Influenza Type B Ag (NEGATIVE) RSV (PCR) (NEGATIVE) SARS-CoV-2 (PCR) (NEGATIVE) 01/15/24 01/15/24 01/15/24 Range/Units 01:55 01:55 01:55 WBC (3.98-10.04) x10^3/uL RBC (3.93-5.22) x10^6/uL Hgb (11.2-15.7) g/dL Hct (34.1-44.9) % MCV (79.4-94.8) fL MCH (25.6-32.2) pg MCHC (32.2-35.5) g/dL RDW (11.7-14.4) % Plt Count (182-369) x10^3/uL MPV (9.4-12.3) fL Gran % (34.0-71.1) % Immature Gran % (Auto) (0.001-0.429) % Nucleat RBC Rel Count (0.00-0.2) % Eos # (Auto) (0.04-0.36) x10^3/uL Immature Gran # (Auto) (0.001-0.031) x10^3u/L Absolute Lymphs (auto) (1.18-3.74) x10^3/uL Absolute Monos (auto) (0.24-0.86) x10^3/uL Absolute Nucleated RBC (0.00-0.012) x10^3u/L Lymphocytes % (19.3-51.7) % Monocytes % (4.7-12.5) % Eosinophils % (0.7-5.8) % Basophils % (0.1-1.2) % Absolute Granulocytes (1.56-6.13) x10^3/uL Basophils # (0.01-0.08) x10^3/uL D-Dimer (0.0-0.50) mg/L Puncture Site pCO2 (35-45) mmHg pO2 (75-100) mmHg Base Excess (-2.0-2.0) O2 Saturation (94-100) g/dF ABG pH (7.35-7.45) ABG HCO3 (22-28) ABG O2 Sat (Measured) (95-100) % Loyd Test A-a Gradient a/A Ratio Hemoglobin Carboxyhemoglobin (0.0-6.9) % THgb Methemoglobin (1.4-1.5) % Potassium (3.5-5.1) Temperature C POC O2 Flow Rate % Vent Mode Vent Rate /MIN Tidal Volume cc PEEP cmH2O Expiratory BiPAP Sodium (135-145) mmol/L Chloride (98-107) mmol/L Carbon Dioxide (22-30) mmol/L Anion Gap (5-15) MEQ/L BUN (7-17) mg/dL Creatinine (0.52-1.04) mg/dL Estimated GFR ML/MIN Glucose (74-106) mg/dL Lactic Acid (0.4-2.0) Calcium (8.4-10.2) mg/dL Total Bilirubin (0.2-1.3) mg/dL AST (14-36) U/L ALT (0-35) U/L Alkaline Phosphatase (38-126) U/L Troponin I < 0.012 (0.000-0.033) ng/mL NT-Pro-B Natriuret Pep 819 (<300) pg/mL Serum Total Protein (6.3-8.2) g/dL Albumin (3.5-5.0) g/dL Procalcitonin (0.030-0.080) ng/mL Urine Color (Yellow) Urine Appearance (Clear) Urine pH (4.6-8.0) Ur Specific [place] (1.005-1.030) Urine Protein (Negative) Urine Glucose (UA) (Negative) mg/dL Urine Ketones (Negative) Urine Blood (Negative) Urine Nitrite (Negative) Urine Bilirubin (Negative) Urine Urobilinogen (0.2) mg/dL Ur Leukocyte Esterase (Negative) U Hyaline Cast (Auto) (0-2) /LPF Urine Microscopic RBC (0-5) /HPF Urine Microscopic WBC (0-5) /HPF Ur Epithelial Cells (None Seen) /HPF Urine Bacteria (None Seen) /HPF Urine Culture Reflexed (NO) Influenza Type A Ag NEGATIVE (NEGATIVE) Influenza Type B Ag NEGATIVE (NEGATIVE) RSV (PCR) NEGATIVE (NEGATIVE) SARS-CoV-2 (PCR) NEGATIVE (NEGATIVE) 01/15/24 Range/Units 02:01 WBC (3.98-10.04) x10^3/uL RBC (3.93-5.22) x10^6/uL Hgb (11.2-15.7) g/dL Hct (34.1-44.9) % MCV (79.4-94.8) fL MCH (25.6-32.2) pg MCHC (32.2-35.5) g/dL RDW (11.7-14.4) % Plt Count (182-369) x10^3/uL MPV (9.4-12.3) fL Gran % (34.0-71.1) % Immature Gran % (Auto) (0.001-0.429) % Nucleat RBC Rel Count (0.00-0.2) % Eos # (Auto) (0.04-0.36) x10^3/uL Immature Gran # (Auto) (0.001-0.031) x10^3u/L Absolute Lymphs (auto) (1.18-3.74) x10^3/uL Absolute Monos (auto) (0.24-0.86) x10^3/uL Absolute Nucleated RBC (0.00-0.012) x10^3u/L Lymphocytes % (19.3-51.7) % Monocytes % (4.7-12.5) % Eosinophils % (0.7-5.8) % Basophils % (0.1-1.2) % Absolute Granulocytes (1.56-6.13) x10^3/uL Basophils # (0.01-0.08) x10^3/uL D-Dimer (0.0-0.50) mg/L Puncture Site pCO2 (35-45) mmHg pO2 (75-100) mmHg Base Excess (-2.0-2.0) O2 Saturation (94-100) g/dF ABG pH (7.35-7.45) ABG HCO3 (22-28) ABG O2 Sat (Measured) (95-100) % Loyd Test A-a Gradient a/A Ratio Hemoglobin Carboxyhemoglobin (0.0-6.9) % THgb Methemoglobin (1.4-1.5) % Potassium (3.5-5.1) Temperature C POC O2 Flow Rate % Vent Mode Vent Rate /MIN Tidal Volume cc PEEP cmH2O Expiratory BiPAP Sodium (135-145) mmol/L Chloride (98-107) mmol/L Carbon Dioxide (22-30) mmol/L Anion Gap (5-15) MEQ/L BUN (7-17) mg/dL Creatinine (0.52-1.04) mg/dL Estimated GFR ML/MIN Glucose (74-106) mg/dL Lactic Acid (0.4-2.0) Calcium (8.4-10.2) mg/dL Total Bilirubin (0.2-1.3) mg/dL AST (14-36) U/L ALT (0-35) U/L Alkaline Phosphatase (38-126) U/L Troponin I (0.000-0.033) ng/mL NT-Pro-B Natriuret Pep (<300) pg/mL Serum Total Protein (6.3-8.2) g/dL Albumin (3.5-5.0) g/dL Procalcitonin 0.063 (0.030-0.080) ng/mL Urine Color (Yellow) Urine Appearance (Clear) Urine pH (4.6-8.0) Ur Specific [place] (1.005-1.030) Urine Protein (Negative) Urine Glucose (UA) (Negative) mg/dL Urine Ketones (Negative) Urine Blood (Negative) Urine Nitrite (Negative) Urine Bilirubin (Negative) Urine Urobilinogen (0.2) mg/dL Ur Leukocyte Esterase (Negative) U Hyaline Cast (Auto) (0-2) /LPF Urine Microscopic RBC (0-5) /HPF Urine Microscopic WBC (0-5) /HPF Ur Epithelial Cells (None Seen) /HPF Urine Bacteria (None Seen) /HPF Urine Culture Reflexed (NO) Influenza Type A Ag (NEGATIVE) Influenza Type B Ag (NEGATIVE) RSV (PCR) (NEGATIVE) SARS-CoV-2 (PCR) (NEGATIVE) Microbiology 01/15/24 01:32 Blood Culture Gram Stain - Final Blood Not Reportable - Radiology Impressions Radiology Exams & Impressions: Radiology Procedures Category Date Time Status CHEST 1 VIEW (PORTABLE) Stat Exams 01/15/24 01:20 Taken HEAD WITHOUT CONTRAST [CT] Stat Exams 01/15/24 02:05 Completed - Other Procedures and Tests Respiratory Therapy 01/15/24 01:44 BiPap/CPAP STAT Assessment/Plan (1) Acute hypoxic respiratory failure Current Visit: Yes Status: Acute Assessment & Plan: 1. Improved with duonebs and supplemental o2 2. wean o2 in the am, will hold off lasix at this time as pt appears euvolemic Code(s): J96.01 - ACUTE RESPIRATORY FAILURE WITH HYPOXIA (2) UTI (urinary tract infection) Current Visit: Yes Status: Acute Qualifiers: Urinary tract infection type: acute cystitis Hematuria presence: without hematuria Qualified Code(s): N30.00 - Acute cystitis without hematuria Assessment & Plan: 1. Given rocephin in the ED 2. Transition to oral antibiotic in the AM Code(s): N39.0 - URINARY TRACT INFECTION, SITE NOT SPECIFIED Telemedicine Encounter - Telemedicine Encounter Telemedicine Encounter: "The entirety of this encounter was performed via Telemedicine" This visit was performed using real-time audio and video connection between my location and thepatients locationwith the assistance of a surrogateat the patients location. Written or verbal consent was obtained from the patient/guardian to perform this visit usingsynchronoustelemedicine technology. Any patient questions regarding the telemedicine interaction were answered.
[2024-01-15] MEDS ORDERED: NON-FORMULARY ITEM (Dulaglutide [Trulicity] 0.75 MG/0.5 ML Pen.Injctr) IN SCH (04:45)
[2024-01-15] MEDS ORDERED: Fosamax 70 MG PO SCH (04:45)
[2024-01-15] MEDS ORDERED: MEDICATION INTERVENTION MC SCH ×3 (07:30)
[2024-01-15] MEDS ORDERED: HUMALOG SQ PRN (08:04)
--- NOTE | 2024-01-15 08:16 | XRAY ---
Indication: Short of breath. Comparison: None Portable apical lordotic chest demonstrates cardiomegaly, tortuous descending aorta, and right hemidiaphragm elevation. No focal infiltrate, consolidation, or large effusion. Bony thorax intact with osteopenia, mild degenerative changes, and mild levoscoliosis. Impression: Cardiomegaly. Negative for acute pneumonic process or CHF. Incidental chronic findings.
[2024-01-15] MEDS ORDERED: NON-FORMULARY ITEM (Fluticasone/Vilanterol [Breo Ellipta 100-25 Mcg Inhalr] 1 EACH Blst.W. IH SCH (10:00)
[2024-01-15] MEDS ORDERED: POTASSIUM CITRATE 10 MEQ PO SCH (10:00)
[2024-01-15] MEDS: TYLENOL 325 MG PO PRN (10:25)
[2024-01-15] MEDS: Abilify 10 MG PO SCH (10:27)
[2024-01-15] MEDS: Calcium 500MG W/Vit D Tablet PO SCH (10:27)
[2024-01-15] MEDS: Cozaar 50 MG PO SCH (10:28)
[2024-01-15] MEDS: ELIQUIS 2.5 MG TABLET PO SCH (10:28)
[2024-01-15] MEDS: Cardizem CD PO SCH (10:28)
[2024-01-15] MEDS: LASIX 20 MG PO SCH (10:29)
[2024-01-15] MEDS: MELOXICAM PO SCH (10:30)
[2024-01-15] MEDS: Neurontin PO SCH (10:30)
[2024-01-15] MEDS: THERAGRAN MULTIVITAMIN PO SCH (10:31)
[2024-01-15] MEDS: Protonix 40MG Tablet PO SCH (10:31)
[2024-01-15] MEDS: SYNTHROID 100 MCG PO SCH (10:31)
[2024-01-15] MEDS: Toprol Xl 50 MG PO SCH (10:32)
[2024-01-15] MEDS: Zocor 10MG PO SCH (10:32)
[2024-01-15] MEDS: Cymbalta 30 MG Capsule PO SCH (21:58)
--- NOTE | 2024-01-16 05:47 | PCM.NOTE ---
Date and Time: 01/16/24 0541 Subjective Assessment: is a 83 year old female with CHF, afib presented with shortness of breath in the ED and found to be hypoxic 88% on room air that improved with duonebs and supplemental oxygen, found to have a UTI as well and treated with rocephin. CXR negative for acute cardiopulmonary process. BLE edema and eryth anna. Negative venous doppler bilaterally. Plan for CT chest. 01/16/24: Met with patient bedside. Endorsed continued dyspnea. BLE with 2+ pitting edema and erythema. Patient states this is chronic. WBC is trending up. Plan to consult podiatry today. Will add clindamycin (add probiotic) for venous stasis and what appears to be superimposed cellulitis. U- cult with gram - ID. Will continue ceftriaxone. Due to continued dyspnea will order CT chest. - Review of Systems Constitutional: No Symptoms Eyes: No Symptoms Ears, Nose, & Throat: No Symptoms Respiratory: Cough, Short Of Breath Cardiac: Edema (BLE 2+ pitting ) Abdominal/Gastrointestinal: No Symptoms Genitourinary Symptoms: No Symptoms Musculoskeletal: No Symptoms Skin: No Symptoms Neurological: No Symptoms Psychological: No Symptoms Endocrine: No Symptoms Hematologic/Lymphatic: No Symptoms Immunological/Allergic: No Symptoms Objective Exam General Appearance: no apparent distress Neurologic Exam: alert, oriented x 3, cooperative Skin Exam: normal color Eye Exam: PERRL Ears, Nose, Throat Exam: normal ENT inspection Neck Exam: normal inspection Respiratory Exam: normal breath sounds, lungs clear Cardiovascular Exam: regular rate/rhythm, normal heart sounds Gastrointestinal/Abdomen Exam: soft, normal bowel sounds Extremity Exam: swelling (BLE 2+ pitting) Back Exam: normal inspection Pelvic Exam: deferred Rectal Exam: deferred Objective Data Vital Signs: Vital Signs - 24 hr Temp Pulse Resp BP Pulse Ox 01/16/24 04:00 97.4 F 99 H 20 135/79 93 L 01/16/24 00:00 97.0 F 75 20 171/89 93 L 01/15/24 20:08 92 L 01/15/24 19:06 97.4 F 74 18 140/69 90 L 01/15/24 16:00 97.6 F 101 H 16 158/75 92 L 01/15/24 11:31 97.7 F 90 16 143/66 92 L 01/15/24 07:23 97.9 F 99 H 22 161/88 92 L Pain Assessment - Last Documented Pain Intensity 0 Pain Scale Used 0-10 Pain Scale Intake and Output: Intake & Output 01/13/24 01/14/24 01/15/24 01/16/24 11:59 11:59 11:59 11:59 Intake Total 1080 Output Total 3350 Balance -3350 1080 Weight 99.3 kg Lab Results: Lab Results-Last 24 Hours 01/15/24 01/15/24 01/15/24 Range/Units 05:25 05:25 07:44 POC Glucometer 140 H (74 to 106) mg/dL Hemoglobin A1c 5.36 (4.5-6.0) % Troponin I (0.000-0.033) ng/mL TSH 3rd Generation 3.063 (0.470-4.680) mIU/L 01/15/24 01/15/24 01/15/24 Range/Units 09:26 11:45 16:31 POC Glucometer 206 H 106 (74 to 106) mg/dL Hemoglobin A1c (4.5-6.0) % Troponin I < 0.012 (0.000-0.033) ng/mL TSH 3rd Generation (0.470-4.680) mIU/L 01/15/24 Range/Units 21:54 POC Glucometer 139 H (74 to 106) mg/dL Hemoglobin A1c (4.5-6.0) % Troponin I (0.000-0.033) ng/mL TSH 3rd Generation (0.470-4.680) mIU/L Radiology Exams: Radiology Procedures Category Date Time Status CHEST 1 VIEW (PORTABLE) Stat Exams 01/15/24 01:20 Completed HEAD WITHOUT CONTRAST [CT] Stat Exams 01/15/24 02:05 Completed Assessment/Plan (1) UTI (urinary tract infection) Current Visit: Yes Status: Acute Qualifiers: Urinary tract infection type: acute cystitis Hematuria presence: without hematuria Qualified Code(s): N30.00 - Acute cystitis without hematuria Assessment & Plan: -UA suspicious for UTI, rocephin started in ED, will continue - follow cultures 01/15: -cultures with gram - , continue ceftriaxone for now Code(s): N39.0 - URINARY TRACT INFECTION, SITE NOT SPECIFIED (2) Acute hypoxic respiratory failure Current Visit: Yes Status: Acute Assessment & Plan: -may be secondary to CHF - continue lasix -CXR with no acute findings -Supplemental oxygen with goal spo2 >92% -NEBS prn -RT eval -Ddimer WNL 01/15: -Still requiring 2L with dyspnea - CXR unremarkable - will order CT chest Code(s): J96.01 - ACUTE RESPIRATORY FAILURE WITH HYPOXIA (3) CHF (congestive heart failure) Current Visit: Yes Status: Acute Assessment & Plan: -No recent echo on file -continue home meds -BNP 819 01/15: -echo -lasix 40 bid -repeat BNP Code(s): I50.9 - HEART FAILURE, UNSPECIFIED (4) Afib Current Visit: Yes Status: Acute Assessment & Plan: -continue home meds -tele Code(s): I48.91 - UNSPECIFIED ATRIAL FIBRILLATION (5) Hypothyroid Current Visit: Yes Status: Acute Assessment & Plan: -continue levothyroxine Code(s): E03.9 - HYPOTHYROIDISM, UNSPECIFIED (6) Type 2 diabetes mellitus Current Visit: Yes Status: Acute Assessment & Plan: -A1c 5.36 -ADA diet -low dose SSI -Takes trulicity at home VTE: eliquis PPI: protonix Dispo: 1-2 days (7) Cellulitis Current Visit: Yes Status: Acute Assessment & Plan: -venous stasis dermatitis with superimposed cellulitis -Venous doppler negative -podiatry consult -elevated legs -marii borders -clindamycin/ceftriaxone -ESR/CRP Code(s): L03.90 - CELLULITIS, UNSPECIFIED (8) Hypokalemia Current Visit: Yes Status: Acute Assessment & Plan: -potassium at 3.4 this morning will replenish per protocol Code(s): E87.6 - HYPOKALEMIA
[2024-01-16] MEDS: TYLENOL 325 MG PO PRN (06:19)
[2024-01-16 06:21] LABS: Absolute Neutrophil Ct (ANC) 13.39 x10^3/uL (1.56-6.13); BASOPHIL % 0.2 % (0.1-1.2); Basophil (Absolute #) 0.03 x10^3/uL (0.01-0.08); Eosinophil % 0.2 % (0.7-5.8); Eosinophil (Absolute #) 0.04 x10^3/uL (0.04-0.36); Hematocrit 35.3 % (34.1-44.9); Hemoglobin 11.4 g/dL (11.2-15.7); IMMATURE GRAN # 0.11 x10^3u/L (0.001-0.031); IMMATURE GRAN % 0.7 % (0.001-0.429); Lymphocyte (Absolute #) 1.48 x10^3/uL (1.18-3.74); Lymphocytes % 8.8 % (19.3-51.7); Mean Cell Volume 104.7 fL (79.4-94.8); Mean Corpuscular Hemoglobin 33.8 pg (25.6-32.2); Mean Corpuscular Hgb Concent. 32.3 g/dL (32.2-35.5); Mean Platelet Volume 8.9 fL (9.4-12.3); Monocyte (Absolute #) 1.68 x10^3/uL (0.24-0.86); Neutrophil % 80.1 % (34.0-71.1); Platelet Count 410 x10^3/uL (182-369); Red Blood Count 3.37 x10^6/uL (3.93-5.22); Red Cell Distribution Width 13.6 % (11.7-14.4); White Blood Count 16.7 x10^3/uL (3.98-10.04)
[2024-01-16 06:33] LABS: ANION GAP 14.2 MEQ/L (5-15); BILIRUBIN,TOTAL 0.6 mg/dL (0.2-1.3); Creatinine 1 0.61 mg/dL (0.52-1.04); EST GLOMERULAR FILTRATION RATE 88.7 ML/MIN; Potassium 3.4 mmol/L (3.5-5.1); Total Protein 7.9 g/dL (6.3-8.2)
[2024-01-16 08:14] LABS: Slide Review 1 YES
[2024-01-16] MEDS: ROCEPHIN 1 GM / 100 ML NaCl 1 GM/100 ML IVPB IV SCH (09:06)
[2024-01-16] MEDS: Cordarone 200 MG PO SCH (09:07)
[2024-01-16] MEDS: Klor Con PO SCH (09:07)
--- NOTE | 2024-01-16 11:52 | XRAY ---
Indication: Lower extremity erythema, warmth, and swelling. Two-dimensional sonogram and color Doppler imaging major venous vessels left and right leg performed. Comparison: None No thrombus seen in the examined deep venous vessels left and right leg including greater saphenous vein. Veins demonstrate normal compressibility. Venous waveforms are normal with and without augmentation. Impression: Left and right legs negative for DVT.
[2024-01-16] MEDS: CLINDAMYCIN-D5W 600 MG/50 ML*** 600 MG/50 ML BAG IV SCH (14:45)
[2024-01-16] MEDS: Lasix 40 MG/4 ML IV SCH (14:45)
[2024-01-16] MEDS ORDERED: Klor Con ONE (15:42)
--- NOTE | 2024-01-16 17:12 | PCM.CONS ---
Podiatry HPI - Consult Date of Consultation Date: 01/16/24 Reason for Consult: BLE venous insuffiecny ulcer Consulting Provider: TANYA ESTEVEZ DPM - [facility] History of Present Illness: guy is a very pleasant 83 year old female consulted for BLE edema with possible cellulitis. She was admitted for UTI. today with complaints of continued dyspnea. BLE with 2+ pitting edema and erythema. Patient states this is chronic. WBC is trending up.. Will add clindamycin (add probiotic) for venous stasis and what appears to be superimposed cellulitis. U- cult with gram - ID. Will continue ceftriaxone. Due to continued dyspnea will order CT chest Medications & Allergies Home Medications: Home Medication List Acetaminophen [Tylenol] 325 mg PO DAILY PRN PRN 01/15/24 [History Confirmed 0 01/15/24] Alendronate Sodium 70 mg [Fosamax 70 MG] 70 mg PO WEEKLY 01/15/24 [History Confirmed 01/15/24] Amiodarone HCl 200 mg [Cordarone 200 MG] 200 mg PO UD 01/15/24 [History Confirmed 01/15/24] Apixaban [Eliquis 2.5 mg Tablet] 2.5 mg PO BID 01/15/24 [History Confirmed 01/15/24] Aripiprazole [Abilify] 2 mg PO DAILY 01/15/24 [History Confirmed 01/15/24] Calcium Carb, Citrate/Vit D3 [Calcium + D3 ER Tablet] 1 tab PO DAILY 01/15/24 [History Confirmed 01/15/24] Dulaglutide [Trulicity] 0.75 mg IN WEEKLY 01/15/24 [History Confirmed 01/15/24] Duloxetine HCl 60 mg PO HS 01/15/24 [History Confirmed 01/15/24] Fluticasone/Vilanterol [Breo Ellipta 100-25 Mcg Inhalr] 1 inhaler IH DAILY 01/15/24 [History Confirmed 01/15/24] Furosemide 20 mg [Lasix 20 mg] 20 mg PO BID 01/15/24 [History Confirmed 01/15/24] Gabapentin 400 mg PO DAILY 01/15/24 [History Confirmed 01/15/24] Levothyroxine Sodium 100 Mcg [Synthroid 100 Mcg] 100 mcg PO DAILY 01/15/24 [History Confirmed 01/15/24] Losartan Potassium 50 mg PO DAILY 01/15/24 [History Confirmed 01/15/24] Meloxicam 7.5 mg PO DAILY 01/15/24 [History Confirmed 01/15/24] Metoprolol Succinate 50 mg PO BID 01/15/24 [History Confirmed 01/15/24] Multivitamin/Iron/Folic Acid [Centrum Adults Tablet] 1 tab PO DAILY 01/15/24 [History Confirmed 01/15/24] PANTOPRAZOLE 40 mg Tablet [Protonix 40MG Tablet] 40 mg PO DAILY 01/15/24 [History Confirmed 01/15/24] Potassium Citrate [Potassium Citrate ER] 10 meq PO BID 01/15/24 [History Confirmed 01/15/24] Pravastatin Sodium 20 mg PO DAILY 01/15/24 [History Confirmed 01/15/24] dilTIAZem HCL [Cardizem Cd] 300 mg PO DAILY 01/15/24 [History Confirmed 01/15/24] Allergies/Adverse Reactions: Allergies Allergy/AdvReac Type Severity Reaction Status Date / Time No Known Drug Allergies Allergy Verified 01/15/24 01:34 - Past Medical History Past Medical History: Yes Neurological History: Peripheral Neuropathy ENT History: No Pertinent History Cardiac History: Arrhythmia, High Cholesterol, Hypertension Respiratory History: No Pertinent History, CHF Endocrine Medical History: Diabetes Type II Musculoskelatal History: No Pertinent History GI Medical History: No Pertinent History History: No Pertinent History Pyscho-Social History: Anxiety Reproductive Disorders: No Pertinent History Comment: a fib, history of left ankle fracture that did not require surgery - Past Surgical History Past Surgical History: Yes Neuro Surgical History: No Pertinent History Cardiac History: No Pertinent History Respiratory Surgery: No Pertinent History GI Surgical History: Cholecystectomy Genitourinary Surgical Hx: No Pertinent History Musculskeletal Surgical Hx: Orthopedic Surgery Female Surgical History: Hysterectomy Other Surgical History: 2 left ankle surgeries, rupa in left leg, back surgery X 2, lumpectomy, 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) - Social History Smoking Status: Never smoker Exposure to second hand smoke: No Alcohol: None Drug Use: none - Social Determinants of Health Will the patient participate in the screening: Yes Do you worry about a steady place to live?: No Do you have any problems with any of the following?: No known problems In the past 12 months,have you had to go without utilities?: No Have you or anyone in your house had to go without enough: No Transportation Issues: No Has anyone in your support network made you feel unsafe?: No Does the patient want assistance with any of the above?: No Physical Exam - Narrative Narrative Physical Exam: Podiatry Physical Exam Results - Labs Lab/Micro Results: Lab Results-Last 24 Hours 01/15/24 01/16/24 01/16/24 Range/Units 21:54 05:40 05:50 WBC 16.7 H (3.98-10.04) x10^3/uL RBC 3.37 L (3.93-5.22) x10^6/uL Hgb 11.4 (11.2-15.7) g/dL Hct 35.3 (34.1-44.9) % MCV 104.7 H (79.4-94.8) fL MCH 33.8 H (25.6-32.2) pg MCHC 32.3 (32.2-35.5) g/dL RDW 13.6 (11.7-14.4) % Plt Count 410 H (182-369) x10^3/uL MPV 8.9 L (9.4-12.3) fL Gran % 80.1 H (34.0-71.1) % Immature Gran % (Auto) 0.7 H (0.001-0.429) % Nucleat RBC Rel Count 0.0 (0.00-0.2) % Eos # (Auto) 0.04 (0.04-0.36) x10^3/uL Immature Gran # (Auto) 0.11 H (0.001-0.031) x10^3u/L Absolute Lymphs (auto) 1.48 (1.18-3.74) x10^3/uL Absolute Monos (auto) 1.68 H (0.24-0.86) x10^3/uL Absolute Nucleated RBC 0.00 (0.00-0.012) x10^3u/L Lymphocytes % 8.8 L (19.3-51.7) % Monocytes % 10.0 (4.7-12.5) % Eosinophils % 0.2 L (0.7-5.8) % Basophils % 0.2 (0.1-1.2) % Absolute Granulocytes 13.39 H (1.56-6.13) x10^3/uL Basophils # 0.03 (0.01-0.08) x10^3/uL ESR (0-20) mm/hr Sodium (135-145) mmol/L Potassium (3.5-5.1) mmol/L Chloride (98-107) mmol/L Carbon Dioxide (22-30) mmol/L Anion Gap (5-15) MEQ/L BUN (7-17) mg/dL Creatinine (0.52-1.04) mg/dL Estimated GFR ML/MIN Glucose (74-106) mg/dL POC Glucometer 139 H (74 to 106) mg/dL Calcium (8.4-10.2) mg/dL Total Bilirubin (0.2-1.3) mg/dL AST (14-36) U/L ALT (0-35) U/L Alkaline Phosphatase (38-126) U/L NT-Pro-B Natriuret Pep 1520 (<300) pg/mL Serum Total Protein (6.3-8.2) g/dL Albumin (3.5-5.0) g/dL Slides for Path Review YES 01/16/24 01/16/24 01/16/24 Range/Units 05:50 05:50 07:08 WBC (3.98-10.04) x10^3/uL RBC (3.93-5.22) x10^6/uL Hgb (11.2-15.7) g/dL Hct (34.1-44.9) % MCV (79.4-94.8) fL MCH (25.6-32.2) pg MCHC (32.2-35.5) g/dL RDW (11.7-14.4) % Plt Count (182-369) x10^3/uL MPV (9.4-12.3) fL Gran % (34.0-71.1) % Immature Gran % (Auto) (0.001-0.429) % Nucleat RBC Rel Count (0.00-0.2) % Eos # (Auto) (0.04-0.36) x10^3/uL Immature Gran # (Auto) (0.001-0.031) x10^3u/L Absolute Lymphs (auto) (1.18-3.74) x10^3/uL Absolute Monos (auto) (0.24-0.86) x10^3/uL Absolute Nucleated RBC (0.00-0.012) x10^3u/L Lymphocytes % (19.3-51.7) % Monocytes % (4.7-12.5) % Eosinophils % (0.7-5.8) % Basophils % (0.1-1.2) % Absolute Granulocytes (1.56-6.13) x10^3/uL Basophils # (0.01-0.08) x10^3/uL ESR 121 H (0-20) mm/hr Sodium 135 (135-145) mmol/L Potassium 3.4 L (3.5-5.1) mmol/L Chloride 93 L (98-107) mmol/L Carbon Dioxide 31 H (22-30) mmol/L Anion Gap 14.2 (5-15) MEQ/L BUN 16 (7-17) mg/dL Creatinine 0.61 (0.52-1.04) mg/dL Estimated GFR 88.7 ML/MIN Glucose 134 H (74-106) mg/dL POC Glucometer 110 H (74 to 106) mg/dL Calcium 9.0 (8.4-10.2) mg/dL Total Bilirubin 0.60 (0.2-1.3) mg/dL AST 46 H (14-36) U/L ALT 35 (0-35) U/L Alkaline Phosphatase 120 (38-126) U/L NT-Pro-B Natriuret Pep (<300) pg/mL Serum Total Protein 7.9 (6.3-8.2) g/dL Albumin 4.0 (3.5-5.0) g/dL Slides for Path Review 01/16/24 01/16/24 Range/Units 11:43 15:38 WBC (3.98-10.04) x10^3/uL RBC (3.93-5.22) x10^6/uL Hgb (11.2-15.7) g/dL Hct (34.1-44.9) % MCV (79.4-94.8) fL MCH (25.6-32.2) pg MCHC (32.2-35.5) g/dL RDW (11.7-14.4) % Plt Count (182-369) x10^3/uL MPV (9.4-12.3) fL Gran % (34.0-71.1) % Immature Gran % (Auto) (0.001-0.429) % Nucleat RBC Rel Count (0.00-0.2) % Eos # (Auto) (0.04-0.36) x10^3/uL Immature Gran # (Auto) (0.001-0.031) x10^3u/L Absolute Lymphs (auto) (1.18-3.74) x10^3/uL Absolute Monos (auto) (0.24-0.86) x10^3/uL Absolute Nucleated RBC (0.00-0.012) x10^3u/L Lymphocytes % (19.3-51.7) % Monocytes % (4.7-12.5) % Eosinophils % (0.7-5.8) % Basophils % (0.1-1.2) % Absolute Granulocytes (1.56-6.13) x10^3/uL Basophils # (0.01-0.08) x10^3/uL ESR (0-20) mm/hr Sodium (135-145) mmol/L Potassium (3.5-5.1) mmol/L Chloride (98-107) mmol/L Carbon Dioxide (22-30) mmol/L Anion Gap (5-15) MEQ/L BUN (7-17) mg/dL Creatinine (0.52-1.04) mg/dL Estimated GFR ML/MIN Glucose (74-106) mg/dL POC Glucometer 125 H 110 H (74 to 106) mg/dL Calcium (8.4-10.2) mg/dL Total Bilirubin (0.2-1.3) mg/dL AST (14-36) U/L ALT (0-35) U/L Alkaline Phosphatase (38-126) U/L NT-Pro-B Natriuret Pep (<300) pg/mL Serum Total Protein (6.3-8.2) g/dL Albumin (3.5-5.0) g/dL Slides for Path Review Microbiology 01/15/24 01:38 Urine Culture - Preliminary Urine, Catheterized GRAM NEGATIVE ID AND SENSITIVITY PENDING Accuchecks Date 01/16/24 Date 01/16/24 Date 01/16/24 Date 01/15/24 - Radiology Impressions Radiology Exams & Impressions: Radiology Procedures Category Date Time Status CHEST 1 VIEW (PORTABLE) Stat Exams 01/15/24 01:20 Completed ECHO W/2D AND DOPPLER [US] Routine Exams 01/16/24 14:02 Taken HEAD WITHOUT CONTRAST [CT] Stat Exams 01/15/24 02:05 Completed VENOUS BILATERAL EXTREMITY [US] Urgent Exams 01/16/24 09:04 Completed Assessment/Plan (1) Acute hypoxic respiratory failure Current Visit: Yes Status: Acute Code(s): J96.01 - ACUTE RESPIRATORY FAILURE WITH HYPOXIA (2) Afib Current Visit: Yes Status: Acute Code(s): I48.91 - UNSPECIFIED ATRIAL FIBRILLATION (3) CHF (congestive heart failure) Current Visit: Yes Status: Acute Code(s): I50.9 - HEART FAILURE, UNSPECIFIED (4) Cellulitis Current Visit: Yes Status: Acute Assessment & Plan: Patient examination anf evaluation Venous ultrasounds reviewed and discussed with nurse and patient demonstrating negative for any occlusion Agree with medicine team. Patient likely demonstrating superimposed cellulitis and would benefit from continued stay with IV abx and compression therapy secondary to venous insuffiecny and localized edema. Unna boots applied the bilateral lower extremity with moderate compression. Will follow with you Thank you for the consult. Code(s): L03.90 - CELLULITIS, UNSPECIFIED (5) Type 2 diabetes mellitus Current Visit: Yes Status: Acute (6) UTI (urinary tract infection) Current Visit: Yes Status: Acute Qualifiers: Urinary tract infection type: acute cystitis Hematuria presence: without hematuria Qualified Code(s): N30.00 - Acute cystitis without hematuria Code(s): N39.0 - URINARY TRACT INFECTION, SITE NOT SPECIFIED
[2024-01-16] MEDS: NEURONTIN PO SCH (22:59)
--- NOTE | 2024-01-17 05:07 | PCM.NOTE ---
Date and Time: 01/17/24 4718 Subjective Assessment: is a 83 year old female with CHF, afib presented with shortness of breath in the ED and found to be hypoxic 88% on room air that improved with duonebs and supplemental oxygen, found to have a UTI as well and treated with rocephin. CXR negative for acute cardiopulmonary process. BLE edema and eryt hilary. Negative venous doppler bilaterally. Plan for CT chest. 01/16/24: Met with patient bedside. Endorsed continued dyspnea. BLE with 2+ pitting edema and erythema. Patient states this is chronic. WBC is trending up. Plan to consult podiatry today. Will add clindamycin (add probiotic) for venous stasis and what appears to be superimposed cellulitis. U- cult with gram - ID. Will continue ceftriaxone. Due to continued dyspnea will order CT chest. 01/16: Patient unable to get CTA yesterday due to no IV access - now obtained, will get today. Endorses continued dyspnea, especially with ambulation - remains on 2L - RA at baseline. Podiatry has seen patient regarding BLE edema/cellulitis - BLE with compression dressings. WBC improving. Continue IV abx/lasix. Denies fever,cp, abdominal pain, ROSA, dizziness, N/V/D. - Review of Systems Constitutional: Weakness Eyes: No Symptoms Ears, Nose, & Throat: No Symptoms Respiratory: Cough, Short Of Breath Cardiac: Edema (BLE +2 pitting ) Abdominal/Gastrointestinal: No Symptoms Genitourinary Symptoms: No Symptoms Musculoskeletal: No Symptoms Skin: No Symptoms Neurological: No Symptoms Psychological: No Symptoms Endocrine: No Symptoms Hematologic/Lymphatic: No Symptoms Immunological/Allergic: No Symptoms Objective Exam General Appearance: no apparent distress Neurologic Exam: alert, oriented x 3, cooperative Skin Exam: normal color Eye Exam: PERRL Ears, Nose, Throat Exam: normal ENT inspection Neck Exam: normal inspection Respiratory Exam: normal breath sounds, lungs clear Cardiovascular Exam: regular rate/rhythm, normal heart sounds Gastrointestinal/Abdomen Exam: soft, normal bowel sounds Extremity Exam: inflammation (BLE with compression dressings) Back Exam: normal inspection Pelvic Exam: deferred Rectal Exam: deferred Objective Data Vital Signs: Vital Signs - 24 hr Temp Pulse Resp BP Pulse Ox 01/17/24 04:00 97.8 F 82 17 145/84 97 01/17/24 00:00 97.6 F 74 17 139/72 96 01/16/24 21:20 96 01/16/24 20:00 97.0 F 87 19 121/64 96 01/16/24 16:00 97.1 F 68 18 127/77 96 01/16/24 11:58 97.1 F 74 20 130/97 94 L 01/16/24 07:33 97.5 F 94 H 18 144/86 95 01/16/24 05:42 93 L Pain Assessment - Last Documented Pain Intensity 5 Pain Scale Used 0-10 Pain Scale Intake and Output: Intake & Output 01/14/24 01/15/24 01/16/24 01/17/24 11:59 11:59 11:59 11:59 Intake Total 1440 1290 Output Total 3350 Balance -3350 1440 1290 Weight 99.3 kg Lab Results: Lab Results-Last 24 Hours 01/16/24 01/16/24 01/16/24 Range/Units 05:40 05:50 05:50 WBC 16.7 H (3.98-10.04) x10^3/uL RBC 3.37 L (3.93-5.22) x10^6/uL Hgb 11.4 (11.2-15.7) g/dL Hct 35.3 (34.1-44.9) % MCV 104.7 H (79.4-94.8) fL MCH 33.8 H (25.6-32.2) pg MCHC 32.3 (32.2-35.5) g/dL RDW 13.6 (11.7-14.4) % Plt Count 410 H (182-369) x10^3/uL MPV 8.9 L (9.4-12.3) fL Gran % 80.1 H (34.0-71.1) % Immature Gran % (Auto) 0.7 H (0.001-0.429) % Nucleat RBC Rel Count 0.0 (0.00-0.2) % Eos # (Auto) 0.04 (0.04-0.36) x10^3/uL Immature Gran # (Auto) 0.11 H (0.001-0.031) x10^3u/L Absolute Lymphs (auto) 1.48 (1.18-3.74) x10^3/uL Absolute Monos (auto) 1.68 H (0.24-0.86) x10^3/uL Absolute Nucleated RBC 0.00 (0.00-0.012) x10^3u/L Lymphocytes % 8.8 L (19.3-51.7) % Monocytes % 10.0 (4.7-12.5) % Eosinophils % 0.2 L (0.7-5.8) % Basophils % 0.2 (0.1-1.2) % Absolute Granulocytes 13.39 H (1.56-6.13) x10^3/uL Basophils # 0.03 (0.01-0.08) x10^3/uL ESR (0-20) mm/hr Sodium 135 (135-145) mmol/L Potassium 3.4 L (3.5-5.1) mmol/L Chloride 93 L (98-107) mmol/L Carbon Dioxide 31 H (22-30) mmol/L Anion Gap 14.2 (5-15) MEQ/L BUN 16 (7-17) mg/dL Creatinine 0.61 (0.52-1.04) mg/dL Estimated GFR 88.7 ML/MIN Glucose 134 H (74-106) mg/dL POC Glucometer (74 to 106) mg/dL Calcium 9.0 (8.4-10.2) mg/dL Total Bilirubin 0.60 (0.2-1.3) mg/dL AST 46 H (14-36) U/L ALT 35 (0-35) U/L Alkaline Phosphatase 120 (38-126) U/L NT-Pro-B Natriuret Pep 1520 (<300) pg/mL Serum Total Protein 7.9 (6.3-8.2) g/dL Albumin 4.0 (3.5-5.0) g/dL Slides for Path Review YES 01/16/24 01/16/24 01/16/24 Range/Units 05:50 07:08 11:43 WBC (3.98-10.04) x10^3/uL RBC (3.93-5.22) x10^6/uL Hgb (11.2-15.7) g/dL Hct (34.1-44.9) % MCV (79.4-94.8) fL MCH (25.6-32.2) pg MCHC (32.2-35.5) g/dL RDW (11.7-14.4) % Plt Count (182-369) x10^3/uL MPV (9.4-12.3) fL Gran % (34.0-71.1) % Immature Gran % (Auto) (0.001-0.429) % Nucleat RBC Rel Count (0.00-0.2) % Eos # (Auto) (0.04-0.36) x10^3/uL Immature Gran # (Auto) (0.001-0.031) x10^3u/L Absolute Lymphs (auto) (1.18-3.74) x10^3/uL Absolute Monos (auto) (0.24-0.86) x10^3/uL Absolute Nucleated RBC (0.00-0.012) x10^3u/L Lymphocytes % (19.3-51.7) % Monocytes % (4.7-12.5) % Eosinophils % (0.7-5.8) % Basophils % (0.1-1.2) % Absolute Granulocytes (1.56-6.13) x10^3/uL Basophils # (0.01-0.08) x10^3/uL ESR 121 H (0-20) mm/hr Sodium (135-145) mmol/L Potassium (3.5-5.1) mmol/L Chloride (98-107) mmol/L Carbon Dioxide (22-30) mmol/L Anion Gap (5-15) MEQ/L BUN (7-17) mg/dL Creatinine (0.52-1.04) mg/dL Estimated GFR ML/MIN Glucose (74-106) mg/dL POC Glucometer 110 H 125 H (74 to 106) mg/dL Calcium (8.4-10.2) mg/dL Total Bilirubin (0.2-1.3) mg/dL AST (14-36) U/L ALT (0-35) U/L Alkaline Phosphatase (38-126) U/L NT-Pro-B Natriuret Pep (<300) pg/mL Serum Total Protein (6.3-8.2) g/dL Albumin (3.5-5.0) g/dL Slides for Path Review 01/16/24 01/16/24 01/16/24 Range/Units 15:38 18:26 21:02 WBC (3.98-10.04) x10^3/uL RBC (3.93-5.22) x10^6/uL Hgb (11.2-15.7) g/dL Hct (34.1-44.9) % MCV (79.4-94.8) fL MCH (25.6-32.2) pg MCHC (32.2-35.5) g/dL RDW (11.7-14.4) % Plt Count (182-369) x10^3/uL MPV (9.4-12.3) fL Gran % (34.0-71.1) % Immature Gran % (Auto) (0.001-0.429) % Nucleat RBC Rel Count (0.00-0.2) % Eos # (Auto) (0.04-0.36) x10^3/uL Immature Gran # (Auto) (0.001-0.031) x10^3u/L Absolute Lymphs (auto) (1.18-3.74) x10^3/uL Absolute Monos (auto) (0.24-0.86) x10^3/uL Absolute Nucleated RBC (0.00-0.012) x10^3u/L Lymphocytes % (19.3-51.7) % Monocytes % (4.7-12.5) % Eosinophils % (0.7-5.8) % Basophils % (0.1-1.2) % Absolute Granulocytes (1.56-6.13) x10^3/uL Basophils # (0.01-0.08) x10^3/uL ESR (0-20) mm/hr Sodium (135-145) mmol/L Potassium 3.8 (3.5-5.1) mmol/L Chloride (98-107) mmol/L Carbon Dioxide (22-30) mmol/L Anion Gap (5-15) MEQ/L BUN (7-17) mg/dL Creatinine (0.52-1.04) mg/dL Estimated GFR ML/MIN Glucose (74-106) mg/dL POC Glucometer 110 H 97 (74 to 106) mg/dL Calcium (8.4-10.2) mg/dL Total Bilirubin (0.2-1.3) mg/dL AST (14-36) U/L ALT (0-35) U/L Alkaline Phosphatase (38-126) U/L NT-Pro-B Natriuret Pep (<300) pg/mL Serum Total Protein (6.3-8.2) g/dL Albumin (3.5-5.0) g/dL Slides for Path Review 01/17/24 Range/Units 04:43 WBC (3.98-10.04) x10^3/uL RBC (3.93-5.22) x10^6/uL Hgb (11.2-15.7) g/dL Hct (34.1-44.9) % MCV (79.4-94.8) fL MCH (25.6-32.2) pg MCHC (32.2-35.5) g/dL RDW (11.7-14.4) % Plt Count (182-369) x10^3/uL MPV (9.4-12.3) fL Gran % (34.0-71.1) % Immature Gran % (Auto) (0.001-0.429) % Nucleat RBC Rel Count (0.00-0.2) % Eos # (Auto) (0.04-0.36) x10^3/uL Immature Gran # (Auto) (0.001-0.031) x10^3u/L Absolute Lymphs (auto) (1.18-3.74) x10^3/uL Absolute Monos (auto) (0.24-0.86) x10^3/uL Absolute Nucleated RBC (0.00-0.012) x10^3u/L Lymphocytes % (19.3-51.7) % Monocytes % (4.7-12.5) % Eosinophils % (0.7-5.8) % Basophils % (0.1-1.2) % Absolute Granulocytes (1.56-6.13) x10^3/uL Basophils # (0.01-0.08) x10^3/uL ESR (0-20) mm/hr Sodium (135-145) mmol/L Potassium (3.5-5.1) mmol/L Chloride (98-107) mmol/L Carbon Dioxide (22-30) mmol/L Anion Gap (5-15) MEQ/L BUN (7-17) mg/dL Creatinine (0.52-1.04) mg/dL Estimated GFR ML/MIN Glucose (74-106) mg/dL POC Glucometer 89 (74 to 106) mg/dL Calcium (8.4-10.2) mg/dL Total Bilirubin (0.2-1.3) mg/dL AST (14-36) U/L ALT (0-35) U/L Alkaline Phosphatase (38-126) U/L NT-Pro-B Natriuret Pep (<300) pg/mL Serum Total Protein (6.3-8.2) g/dL Albumin (3.5-5.0) g/dL Slides for Path Review Radiology Exams: Radiology Procedures Category Date Time Status ECHO W/2D AND DOPPLER [US] Routine Exams 01/16/24 14:02 Taken VENOUS BILATERAL EXTREMITY [US] Urgent Exams 01/16/24 09:04 Completed Assessment/Plan (1) UTI (urinary tract infection) Current Visit: Yes Status: Acute Qualifiers: Urinary tract infection type: acute cystitis Hematuria presence: without hematuria Qualified Code(s): N30.00 - Acute cystitis without hematuria Assessment & Plan: -UA suspicious for UTI, rocephin started in ED, will continue - follow cultures 01/15: -cultures with gram - , continue ceftriaxone for now 01/16: -Ecoli on ucult with sensitivities to ceftriaxone, will continue while IP Code(s): N39.0 - URINARY TRACT INFECTION, SITE NOT SPECIFIED (2) Acute hypoxic respiratory failure Current Visit: Yes Status: Acute Assessment & Plan: -may be secondary to CHF - continue lasix -CXR with no acute findings -Supplemental oxygen with goal spo2 >92% -NEBS prn -RT eval -Ddimer WNL 01/15: -Still requiring 2L with dyspnea - CXR unremarkable - will order CT chest - delayed due to IV malfunction- will obtain 01/17/24 Code(s): J96.01 - ACUTE RESPIRATORY FAILURE WITH HYPOXIA (3) CHF (congestive heart failure) Current Visit: Yes Status: Acute Assessment & Plan: -No recent echo on file -continue home meds -BNP 819 01/15: -echo -lasix 40 bid -repeat BNP 01/16: BNP increased to 1520 - continue IV lasix Code(s): I50.9 - HEART FAILURE, UNSPECIFIED (4) Afib Current Visit: Yes Status: Acute Assessment & Plan: -continue home meds -tele Code(s): I48.91 - UNSPECIFIED ATRIAL FIBRILLATION (5) Hypothyroid Current Visit: Yes Status: Acute Assessment & Plan: -continue levothyroxine -TSH WNL Code(s): E03.9 - HYPOTHYROIDISM, UNSPECIFIED (6) Type 2 diabetes mellitus Current Visit: Yes Status: Acute Assessment & Plan: -A1c 5.36 -ADA diet -low dose SSI -Takes trulicity at home VTE: eliquis PPI: protonix Dispo: 1-2 days (7) Cellulitis Current Visit: Yes Status: Acute Assessment & Plan: -venous stasis dermatitis with superimposed cellulitis -Venous doppler negative -podiatry consult -elevated legs -marii borders -clindamycin/ceftriaxone -ESR/CRP 01/16: -Podiatry note reviewed, agree with plan - will continue with unna boots and IV abx Code(s): L03.90 - CELLULITIS, UNSPECIFIED (8) Hypokalemia Current Visit: Yes Status: Acute Assessment & Plan: -potassium at 3.4 this morning will replenish per protocol 01/16: resolved will add daily K+ Code(s): E87.6 - HYPOKALEMIA Code(s): N39.0 - URINARY TRACT INFECTION, SITE NOT SPECIFIED (2) Acute hypoxic respiratory failure Current Visit: Yes Status: Acute Code(s): J96.01 - ACUTE RESPIRATORY FAILURE WITH HYPOXIA (3) CHF (congestive heart failure) Current Visit: Yes Status: Acute Code(s): I50.9 - HEART FAILURE, UNSPECIFIED (4) Afib Current Visit: Yes Status: Acute Code(s): I48.91 - UNSPECIFIED ATRIAL FIBRILLATION (5) Hypothyroid Current Visit: Yes Status: Acute Code(s): E03.9 - HYPOTHYROIDISM, UNSPECIFIED (6) Type 2 diabetes mellitus Current Visit: Yes Status: Acute (7) Cellulitis Current Visit: Yes Status: Acute Code(s): L03.90 - CELLULITIS, UNSPECIFIED (8) Hypokalemia Current Visit: Yes Status: Acute Code(s): E87.6 - HYPOKALEMIA
[2024-01-17 05:29] LABS: Absolute Neutrophil Ct (ANC) 9.01 x10^3/uL (1.56-6.13); BASOPHIL % 0.2 % (0.1-1.2); Basophil (Absolute #) 0.02 x10^3/uL (0.01-0.08); Eosinophil % 0.5 % (0.7-5.8); Eosinophil (Absolute #) 0.06 x10^3/uL (0.04-0.36); Hematocrit 34.8 % (34.1-44.9); IMMATURE GRAN # 0.07 x10^3u/L (0.001-0.031); IMMATURE GRAN % 0.6 % (0.001-0.429); Lymphocyte (Absolute #) 1.66 x10^3/uL (1.18-3.74); Lymphocytes % 13.3 % (19.3-51.7); Mean Cell Volume 106.1 fL (79.4-94.8); Mean Corpuscular Hemoglobin 33.5 pg (25.6-32.2); Mean Corpuscular Hgb Concent. 31.6 g/dL (32.2-35.5); Mean Platelet Volume 8.6 fL (9.4-12.3); Monocyte (Absolute #) 1.67 x10^3/uL (0.24-0.86); Monocytes % 13.4 % (4.7-12.5); Platelet Count 360 x10^3/uL (182-369); Red Blood Count 3.28 x10^6/uL (3.93-5.22); Red Cell Distribution Width 13.7 % (11.7-14.4); White Blood Count 12.5 x10^3/uL (3.98-10.04)
[2024-01-17 05:41] LABS: ALBUMIN 3.7 g/dL (3.5-5.0); ANION GAP 12.7 MEQ/L (5-15); BILIRUBIN,TOTAL 0.6 mg/dL (0.2-1.3); Calcium 8.7 mg/dL (8.4-10.2); Creatinine 1 0.62 mg/dL (0.52-1.04); EST GLOMERULAR FILTRATION RATE 88.3 ML/MIN; Potassium 3.6 mmol/L (3.5-5.1); Total Protein 7.3 g/dL (6.3-8.2)
[2024-01-17 07:29] LABS: Slide Review 1 YES
[2024-01-17] MEDS: Acidophilus TABLET PO SCH (10:04)
[2024-01-17] MEDS ORDERED: Xylocaine-Mpf 2% 5 Ml Vial ONE (11:46)
[2024-01-17] MEDS: Klor Con PO SCH (11:46)
--- NOTE | 2024-01-17 13:27 | XRAY ---
Indication: Short of breath. Multiple contiguous axial images obtained through the chest without contrast. Comparison: None Lungs demonstrate diffuse bilateral patchy groundglass airspace disease without consolidation/large effusion. Also scattered bilateral subsegmental atelectasis/scarring. Heart is enlarged. Aorta minimally arteriosclerotic without aneurysm. 1.8 x 1.7 cm prominent pretracheal node. Bony thorax intact with osteopenia, mild/moderate degenerative changes throughout spine, mild levoscoliosis centered at T11, and incompletely visualized lumbar fusion hardware. Limited upper abdomen unremarkable. Impression: 1. Diffuse bilateral patchy groundglass airspace disease. 2. Prominent pretracheal node presumed reactive. 3. Cardiomegaly without CHF. 4. Chronic findings including atelectasis/scarring, arteriosclerotic disease, and chronic bony findings.
[2024-01-17] MEDS: Lasix 40 MG/4 ML IV SCH (18:52)
--- NOTE | 2024-01-18 05:05 | PCM.NOTE ---
Date and Time: 01/18/24 7159 Subjective Assessment: is a 83 year old female with CHF, afib presented with shortness of breath in the ED and found to be hypoxic 88% on room air that improved with duonebs and supplemental oxygen, found to have a UTI as well and treated with rocephin. CXR negative for acute cardiopulmonary process. BLE edema and eryt hilary. Negative venous doppler bilaterally. Plan for CT chest. 01/16/24: Met with patient bedside. Endorsed continued dyspnea. BLE with 2+ pitting edema and erythema. Patient states this is chronic. WBC is trending up. Plan to consult podiatry today. Will add clindamycin (add probiotic) for venous stasis and what appears to be superimposed cellulitis. U- cult with gram - ID. Will continue ceftriaxone. Due to continued dyspnea will order CT chest. 01/16: Patient unable to get CTA yesterday due to no IV access - now obtained, will get today. Endorses continued dyspnea, especially with ambulation - remains on 2L - RA at baseline. Podiatry has seen patient regarding BLE edema/cellulitis - BLE with compression dressings. WBC improving. Continue IV abx/lasix. Denies fever,cp, abdominal pain, ROSA, dizziness, N/V/D. 01/18/24: Met with patient bedside. Endorses improved dyspnea. Patient is psychologically stable. She will require rehab on discharge for strengthening - this will be a 30 day or less stay. Most likely will discharge tomorrow and need oxygen on discharge. Podiatry to follow as OP. - Review of Systems Constitutional: Weakness Eyes: No Symptoms Ears, Nose, & Throat: No Symptoms Respiratory: Cough, Short Of Breath Cardiac: Edema (BLE ) Abdominal/Gastrointestinal: No Symptoms Genitourinary Symptoms: No Symptoms Musculoskeletal: No Symptoms Skin: No Symptoms Neurological: No Symptoms Psychological: No Symptoms Endocrine: No Symptoms Hematologic/Lymphatic: No Symptoms Immunological/Allergic: No Symptoms Objective Exam General Appearance: no apparent distress Neurologic Exam: alert, oriented x 3, cooperative Skin Exam: pale Eye Exam: PERRL Ears, Nose, Throat Exam: normal ENT inspection Neck Exam: normal inspection Respiratory Exam: normal breath sounds, lungs clear Cardiovascular Exam: regular rate/rhythm, normal heart sounds Gastrointestinal/Abdomen Exam: soft, normal bowel sounds Extremity Exam: swelling (BLE with compression dressings) Pelvic Exam: deferred Rectal Exam: deferred Objective Data Vital Signs: Vital Signs - 24 hr Temp Pulse Resp BP Pulse Ox 01/18/24 04:00 97.8 F 100 H 18 125/77 93 L 01/18/24 00:00 96 H 23 94 L 01/17/24 20:10 99 01/17/24 20:00 97.2 F 111 H 17 134/73 96 01/17/24 16:00 97.6 F 96 H 16 113/72 98 01/17/24 11:59 96.3 F 78 20 141/67 95 01/17/24 08:40 94 L 01/17/24 08:00 96.9 F 83 20 146/73 95 Pain Assessment - Last Documented Pain Intensity 4 Pain Scale Used [facility] Intake and Output: Intake & Output 01/15/24 01/16/24 01/17/24 01/18/24 11:59 11:59 11:59 11:59 Intake Total 1440 1530 740 Output Total 3350 Balance -3350 1440 1530 740 Weight 99.3 kg 95.7 kg Lab Results: Lab Results-Last 24 Hours 01/16/24 01/17/24 01/17/24 Range/Units 05:50 05:16 05:16 WBC 12.5 H (3.98-10.04) x10^3/uL RBC 3.28 L (3.93-5.22) x10^6/uL Hgb 11.0 L (11.2-15.7) g/dL Hct 34.8 (34.1-44.9) % MCV 106.1 H (79.4-94.8) fL MCH 33.5 H (25.6-32.2) pg MCHC 31.6 L (32.2-35.5) g/dL RDW 13.7 (11.7-14.4) % Plt Count 360 (182-369) x10^3/uL MPV 8.6 L (9.4-12.3) fL Gran % 72.0 H (34.0-71.1) % Immature Gran % (Auto) 0.6 H (0.001-0.429) % Nucleat RBC Rel Count 0.0 (0.00-0.2) % Eos # (Auto) 0.06 (0.04-0.36) x10^3/uL Immature Gran # (Auto) 0.07 H (0.001-0.031) x10^3u/L Absolute Lymphs (auto) 1.66 (1.18-3.74) x10^3/uL Absolute Monos (auto) 1.67 H (0.24-0.86) x10^3/uL Absolute Nucleated RBC 0.00 (0.00-0.012) x10^3u/L Lymphocytes % 13.3 L (19.3-51.7) % Monocytes % 13.4 H (4.7-12.5) % Eosinophils % 0.5 L (0.7-5.8) % Basophils % 0.2 (0.1-1.2) % Absolute Granulocytes 9.01 H (1.56-6.13) x10^3/uL Basophils # 0.02 (0.01-0.08) x10^3/uL Sodium 136 (135-145) mmol/L Potassium 3.6 (3.5-5.1) mmol/L Chloride 95 L (98-107) mmol/L Carbon Dioxide 31 H (22-30) mmol/L Anion Gap 12.7 (5-15) MEQ/L BUN 16 (7-17) mg/dL Creatinine 0.62 (0.52-1.04) mg/dL Estimated GFR 88.3 ML/MIN Glucose 110 H (74-106) mg/dL POC Glucometer (74 to 106) mg/dL Calcium 8.7 (8.4-10.2) mg/dL Total Bilirubin 0.60 (0.2-1.3) mg/dL AST 51 H (14-36) U/L ALT 33 (0-35) U/L Alkaline Phosphatase 117 (38-126) U/L C-Reactive Prot, Quant 31 H (0-10) mg/L Serum Total Protein 7.3 (6.3-8.2) g/dL Albumin 3.7 (3.5-5.0) g/dL Slides for Path Review YES 01/17/24 01/17/24 01/17/24 Range/Units 07:18 11:50 16:32 WBC (3.98-10.04) x10^3/uL RBC (3.93-5.22) x10^6/uL Hgb (11.2-15.7) g/dL Hct (34.1-44.9) % MCV (79.4-94.8) fL MCH (25.6-32.2) pg MCHC (32.2-35.5) g/dL RDW (11.7-14.4) % Plt Count (182-369) x10^3/uL MPV (9.4-12.3) fL Gran % (34.0-71.1) % Immature Gran % (Auto) (0.001-0.429) % Nucleat RBC Rel Count (0.00-0.2) % Eos # (Auto) (0.04-0.36) x10^3/uL Immature Gran # (Auto) (0.001-0.031) x10^3u/L Absolute Lymphs (auto) (1.18-3.74) x10^3/uL Absolute Monos (auto) (0.24-0.86) x10^3/uL Absolute Nucleated RBC (0.00-0.012) x10^3u/L Lymphocytes % (19.3-51.7) % Monocytes % (4.7-12.5) % Eosinophils % (0.7-5.8) % Basophils % (0.1-1.2) % Absolute Granulocytes (1.56-6.13) x10^3/uL Basophils # (0.01-0.08) x10^3/uL Sodium (135-145) mmol/L Potassium (3.5-5.1) mmol/L Chloride (98-107) mmol/L Carbon Dioxide (22-30) mmol/L Anion Gap (5-15) MEQ/L BUN (7-17) mg/dL Creatinine (0.52-1.04) mg/dL Estimated GFR ML/MIN Glucose (74-106) mg/dL POC Glucometer 101 117 H 113 H (74 to 106) mg/dL Calcium (8.4-10.2) mg/dL Total Bilirubin (0.2-1.3) mg/dL AST (14-36) U/L ALT (0-35) U/L Alkaline Phosphatase (38-126) U/L C-Reactive Prot, Quant (0-10) mg/L Serum Total Protein (6.3-8.2) g/dL Albumin (3.5-5.0) g/dL Slides for Path Review 01/17/24 Range/Units 20:52 WBC (3.98-10.04) x10^3/uL RBC (3.93-5.22) x10^6/uL Hgb (11.2-15.7) g/dL Hct (34.1-44.9) % MCV (79.4-94.8) fL MCH (25.6-32.2) pg MCHC (32.2-35.5) g/dL RDW (11.7-14.4) % Plt Count (182-369) x10^3/uL MPV (9.4-12.3) fL Gran % (34.0-71.1) % Immature Gran % (Auto) (0.001-0.429) % Nucleat RBC Rel Count (0.00-0.2) % Eos # (Auto) (0.04-0.36) x10^3/uL Immature Gran # (Auto) (0.001-0.031) x10^3u/L Absolute Lymphs (auto) (1.18-3.74) x10^3/uL Absolute Monos (auto) (0.24-0.86) x10^3/uL Absolute Nucleated RBC (0.00-0.012) x10^3u/L Lymphocytes % (19.3-51.7) % Monocytes % (4.7-12.5) % Eosinophils % (0.7-5.8) % Basophils % (0.1-1.2) % Absolute Granulocytes (1.56-6.13) x10^3/uL Basophils # (0.01-0.08) x10^3/uL Sodium (135-145) mmol/L Potassium (3.5-5.1) mmol/L Chloride (98-107) mmol/L Carbon Dioxide (22-30) mmol/L Anion Gap (5-15) MEQ/L BUN (7-17) mg/dL Creatinine (0.52-1.04) mg/dL Estimated GFR ML/MIN Glucose (74-106) mg/dL POC Glucometer 113 H (74 to 106) mg/dL Calcium (8.4-10.2) mg/dL Total Bilirubin (0.2-1.3) mg/dL AST (14-36) U/L ALT (0-35) U/L Alkaline Phosphatase (38-126) U/L C-Reactive Prot, Quant (0-10) mg/L Serum Total Protein (6.3-8.2) g/dL Albumin (3.5-5.0) g/dL Slides for Path Review Radiology Exams: Radiology Procedures Category Date Time Status CHEST WITHOUT CONTRAST [CT] Urgent Exams 01/17/24 11:14 Completed ECHO W/2D AND DOPPLER [US] Routine Exams 01/16/24 14:02 Taken PULMONARY PERF VENTILATION [NUCMED] Routine Exams 01/18/24 08:00 Ordered VENOUS BILATERAL EXTREMITY [US] Urgent Exams 01/16/24 09:04 Completed Multi-Disciplinary Progress Notes: Multi-Disciplinary Progress Notes 01/17/24 11:46 Case Management Note by Veronica Easton S/W PATIENT ABOUT PLANS AT DC- SHE CONTINUES TO PLAN TO DC HOME TO HER PLF WITH HER TO ASSIST HER. PATIENT REPORTS SHE FEELS SHE IS TOO WEAK TO DO HER NORMAL ROUTINE OF USING A STEP TO GET IN THEIR SUV. FAMILY PLANS TO BORROW A CAR TO HOPEFULLY GET PATIENT HOME. WE DISCUSSED ADDING HHC SERVICES IN FOR THERAPY TO REGAIN THAT STRENGTH. PATIENT REPORTS SHE HAS USED [facility] IN THE PAST AND WOULD BE AGREEABLE TO HAVE THEM IN AGAIN. Initialized on 01/17/24 11:46 - END OF NOTE Assessment/Plan (1) UTI (urinary tract infection) Current Visit: Yes Status: Acute Qualifiers: Urinary tract infection type: acute cystitis Hematuria presence: without hematuria Qualified Code(s): N30.00 - Acute cystitis without hematuria Assessment & Plan: -UA suspicious for UTI, rocephin started in ED, will continue - follow cultures 01/15: -cultures with gram - , continue ceftriaxone for now 01/16: -Ecoli on ucult with sensitivities to ceftriaxone, will continue while IP Code(s): N39.0 - URINARY TRACT INFECTION, SITE NOT SPECIFIED (2) Acute hypoxic respiratory failure Current Visit: Yes Status: Acute Assessment & Plan: -may be secondary to CHF - continue lasix -CXR with no acute findings -Supplemental oxygen with goal spo2 >92% -NEBS prn -RT eval -Ddimer WNL 01/15: -Still requiring 2L with dyspnea - CXR unremarkable - will order CT chest - delayed due to IV malfunction- will obtain 01/17/2401/17: -Qualify for home oxygen -CT showing bilateral patch groundglass airspace disease/ cardiomegaly without CHF Code(s): J96.01 - ACUTE RESPIRATORY FAILURE WITH HYPOXIA (3) CHF (congestive heart failure) Current Visit: Yes Status: Acute Assessment & Plan: -No recent echo on file -continue home meds -BNP 819 01/15: -echo -lasix 40 bid -repeat BNP 01/16: BNP increased to 1520 - continue IV lasix 01/17: -CTA without CHF, will resume home dose of lasix Code(s): I50.9 - HEART FAILURE, UNSPECIFIED (4) Afib Current Visit: Yes Status: Acute Assessment & Plan: -continue home meds -tele Code(s): I48.91 - UNSPECIFIED ATRIAL FIBRILLATION (5) Hypothyroid Current Visit: Yes Status: Acute Assessment & Plan: -continue levothyroxine -TSH WNL Code(s): E03.9 - HYPOTHYROIDISM, UNSPECIFIED (6) Type 2 diabetes mellitus Current Visit: Yes Status: Acute Assessment & Plan: -A1c 5.36 -ADA diet -low dose SSI -Takes trulicity at home Weakness -PT eval with recommendations for rehab stay - will require 30 days or less for strengthening VTE: eliquis PPI: protonix Dispo: 1-2 days (7) Cellulitis Current Visit: Yes Status: Acute Assessment & Plan: -venous stasis dermatitis with superimposed cellulitis -Venous doppler negative -podiatry consult -elevated legs -marii borders -clindamycin/ceftriaxone -ESR/CRP 01/16: -Podiatry note reviewed, agree with plan - will continue with unna boots and IV abx Code(s): L03.90 - CELLULITIS, UNSPECIFIED (8) Hypokalemia Current Visit: Yes Status: Acute Assessment & Plan: -potassium at 3.4 this morning will replenish per protocol 01/16: resolved will add daily K+ 01/17: -secondary to diuresis - replenish per protocol Code(s): E87.6 - HYPOKALEMIA Code(s): N39.0 - URINARY TRACT INFECTION, SITE NOT SPECIFIED (2) Acute hypoxic respiratory failure Current Visit: Yes Status: Acute Code(s): J96.01 - ACUTE RESPIRATORY FAILURE WITH HYPOXIA (3) CHF (congestive heart failure) Current Visit: Yes Status: Acute Code(s): I50.9 - HEART FAILURE, UNSPECIFIED (4) Afib Current Visit: Yes Status: Acute Code(s): I48.91 - UNSPECIFIED ATRIAL FIBRILLATION (5) Hypothyroid Current Visit: Yes Status: Acute Code(s): E03.9 - HYPOTHYROIDISM, UNSPECIFIED (6) Type 2 diabetes mellitus Current Visit: Yes Status: Acute (7) Cellulitis Current Visit: Yes Status: Acute Code(s): L03.90 - CELLULITIS, UNSPECIFIED (8) Hypokalemia Current Visit: Yes Status: Acute Code(s): E87.6 - HYPOKALEMIA (9) Weakness Current Visit: Yes Status: Acute Code(s): R53.1 - WEAKNESS
[2024-01-18 05:33] LABS: Absolute Neutrophil Ct (ANC) 6.52 x10^3/uL (1.56-6.13); BASOPHIL % 0.2 % (0.1-1.2); Basophil (Absolute #) 0.02 x10^3/uL (0.01-0.08); Eosinophil % 1.5 % (0.7-5.8); Eosinophil (Absolute #) 0.14 x10^3/uL (0.04-0.36); Hematocrit 31.4 % (34.1-44.9); IMMATURE GRAN # 0.05 x10^3u/L (0.001-0.031); IMMATURE GRAN % 0.5 % (0.001-0.429); Lymphocyte (Absolute #) 1.29 x10^3/uL (1.18-3.74); Lymphocytes % 13.6 % (19.3-51.7); Mean Cell Volume 106.1 fL (79.4-94.8); Mean Corpuscular Hemoglobin 33.8 pg (25.6-32.2); Mean Corpuscular Hgb Concent. 31.8 g/dL (32.2-35.5); Mean Platelet Volume 8.7 fL (9.4-12.3); Monocyte (Absolute #) 1.46 x10^3/uL (0.24-0.86); Monocytes % 15.4 % (4.7-12.5); Neutrophil % 68.8 % (34.0-71.1); Platelet Count 313 x10^3/uL (182-369); Red Blood Count 2.96 x10^6/uL (3.93-5.22); Red Cell Distribution Width 13.3 % (11.7-14.4); White Blood Count 9.5 x10^3/uL (3.98-10.04)
[2024-01-18 06:03] LABS: ALBUMIN 3.3 g/dL (3.5-5.0); ANION GAP 9.9 MEQ/L (5-15); BILIRUBIN,TOTAL 0.5 mg/dL (0.2-1.3); Calcium 8.2 mg/dL (8.4-10.2); Creatinine 1 0.61 mg/dL (0.52-1.04); EST GLOMERULAR FILTRATION RATE 88.7 ML/MIN; Total Protein 6.6 g/dL (6.3-8.2)
[2024-01-18] MEDS ORDERED: PATIENT OWN MEDICATION IH SCH (07:00)
[2024-01-18] MEDS: PATIENT OWN MEDICATION IH SCH (07:30)
[2024-01-18] MEDS: Klor Con PO SCH (07:47)
[2024-01-18] MEDS ORDERED: NON-FORMULARY ITEM (Dulaglutide [Trulicity] 0.75 MG) IN SCH (10:00)
--- NOTE | 2024-01-18 10:35 | XRAY ---
Indication: Short of breath. V/Q protocol. Comparison: January 15, [address] chest one day earlier. AP/lateral chest obtained in wheelchair. Lateral limited by respiration artifact. Grossly stable CT proven cardiomegaly, hazy bilateral groundglass opacities, and right hemidiaphragm elevation. Bony thorax intact again with osteopenia, degenerative changes, levoscoliosis. No new cardiopulmonary abnormalities.
[2024-01-18] MEDS: Lasix 40 MG/4 ML IV SCH (11:10)
--- NOTE | 2024-01-18 11:33 | XRAY ---
Indication: Short of breath 1 week. Comparison: None Patient received 5.6 mCi technetium 99 MAA for the perfusion portion of the exam. Patient inhaled 37.2 mCi aerosolized technetium 99 DTPA for the ventilation portion of the exam. Multiple planar images obtained. Patient unable to elevate both arms for exam. Perfusion images demonstrate homogeneous radiopharmaceutical activity bilaterally. Ventilation images demonstrates homogeneous radiopharmaceutical activity bilaterally. Mild central radiopharmaceutical activity favoring chronic obstructive disease. Both ventilation and perfusion images demonstrate matched right hemidiaphragm elevation. Impression: Matched ventilation/perfusion right hemidiaphragm elevation. Mild chronic obstructive disease. PIOPED criteria is low probability for pulmonary embolus.
--- NOTE | 2024-01-18 16:28 | PCM.NOTE ---
Date and Time: 01/18/24 1628 Subjective Assessment: follow up #2 patient doing well with improvement in swelling and skin condition overall Physical Exam - Narrative Narrative Physical Exam: Podiatry Physical Exam Objective Data Vital Signs: Vital Signs - 24 hr Temp Pulse Resp BP Pulse Ox 01/18/24 16:00 85 19 121/80 92 L 01/18/24 13:31 96 01/18/24 11:50 97.5 F 100 H 20 110/71 91 L 01/18/24 08:22 102 H 16 92 L 01/18/24 07:39 97.0 F 99 H 19 126/81 97 01/18/24 04:00 97.8 F 100 H 18 125/77 93 L 01/18/24 00:00 96 H 23 94 L 01/17/24 20:10 99 01/17/24 20:00 97.2 F 111 H 17 134/73 96 Pain Assessment - Last Documented Pain Intensity 5 Pain Scale Used 0-10 Pain Scale Intake and Output: Intake & Output 01/16/24 01/17/24 01/18/24 01/19/24 11:59 11:59 11:59 11:59 Intake Total 1440 1530 980 240 Output Total 900 Balance 1440 1530 80 240 Weight 95.7 kg 94.7 kg 94.7 kg Lab Results: Lab Results-Last 24 Hours 01/17/24 01/17/24 01/18/24 Range/Units 16:32 20:52 05:20 WBC 9.5 (3.98-10.04) x10^3/uL RBC 2.96 L (3.93-5.22) x10^6/uL Hgb 10.0 L (11.2-15.7) g/dL Hct 31.4 L (34.1-44.9) % MCV 106.1 H (79.4-94.8) fL MCH 33.8 H (25.6-32.2) pg MCHC 31.8 L (32.2-35.5) g/dL RDW 13.3 (11.7-14.4) % Plt Count 313 (182-369) x10^3/uL MPV 8.7 L (9.4-12.3) fL Gran % 68.8 (34.0-71.1) % Immature Gran % (Auto) 0.5 H (0.001-0.429) % Nucleat RBC Rel Count 0.0 (0.00-0.2) % Eos # (Auto) 0.14 (0.04-0.36) x10^3/uL Immature Gran # (Auto) 0.05 H (0.001-0.031) x10^3u/L Absolute Lymphs (auto) 1.29 (1.18-3.74) x10^3/uL Absolute Monos (auto) 1.46 H (0.24-0.86) x10^3/uL Absolute Nucleated RBC 0.00 (0.00-0.012) x10^3u/L Lymphocytes % 13.6 L (19.3-51.7) % Monocytes % 15.4 H (4.7-12.5) % Eosinophils % 1.5 (0.7-5.8) % Basophils % 0.2 (0.1-1.2) % Absolute Granulocytes 6.52 H (1.56-6.13) x10^3/uL Basophils # 0.02 (0.01-0.08) x10^3/uL Sodium (135-145) mmol/L Potassium (3.5-5.1) mmol/L Chloride (98-107) mmol/L Carbon Dioxide (22-30) mmol/L Anion Gap (5-15) MEQ/L BUN (7-17) mg/dL Creatinine (0.52-1.04) mg/dL Estimated GFR ML/MIN Glucose (74-106) mg/dL POC Glucometer 113 H 113 H (74 to 106) mg/dL Calcium (8.4-10.2) mg/dL Magnesium (1.6-2.3) mg/dL Total Bilirubin (0.2-1.3) mg/dL AST (14-36) U/L ALT (0-35) U/L Alkaline Phosphatase (38-126) U/L Serum Total Protein (6.3-8.2) g/dL Albumin (3.5-5.0) g/dL 01/18/24 01/18/24 01/18/24 Range/Units 05:20 06:10 07:28 WBC (3.98-10.04) x10^3/uL RBC (3.93-5.22) x10^6/uL Hgb (11.2-15.7) g/dL Hct (34.1-44.9) % MCV (79.4-94.8) fL MCH (25.6-32.2) pg MCHC (32.2-35.5) g/dL RDW (11.7-14.4) % Plt Count (182-369) x10^3/uL MPV (9.4-12.3) fL Gran % (34.0-71.1) % Immature Gran % (Auto) (0.001-0.429) % Nucleat RBC Rel Count (0.00-0.2) % Eos # (Auto) (0.04-0.36) x10^3/uL Immature Gran # (Auto) (0.001-0.031) x10^3u/L Absolute Lymphs (auto) (1.18-3.74) x10^3/uL Absolute Monos (auto) (0.24-0.86) x10^3/uL Absolute Nucleated RBC (0.00-0.012) x10^3u/L Lymphocytes % (19.3-51.7) % Monocytes % (4.7-12.5) % Eosinophils % (0.7-5.8) % Basophils % (0.1-1.2) % Absolute Granulocytes (1.56-6.13) x10^3/uL Basophils # (0.01-0.08) x10^3/uL Sodium 135 (135-145) mmol/L Potassium 3.0 L* (3.5-5.1) mmol/L Chloride 94 L (98-107) mmol/L Carbon Dioxide 34 H (22-30) mmol/L Anion Gap 9.9 (5-15) MEQ/L BUN 12 (7-17) mg/dL Creatinine 0.61 (0.52-1.04) mg/dL Estimated GFR 88.7 ML/MIN Glucose 88 (74-106) mg/dL POC Glucometer 89 (74 to 106) mg/dL Calcium 8.2 L (8.4-10.2) mg/dL Magnesium 1.9 (1.6-2.3) mg/dL Total Bilirubin 0.50 (0.2-1.3) mg/dL AST 42 H (14-36) U/L ALT 27 (0-35) U/L Alkaline Phosphatase 103 (38-126) U/L Serum Total Protein 6.6 (6.3-8.2) g/dL Albumin 3.3 L (3.5-5.0) g/dL 01/18/24 01/18/24 Range/Units 11:44 12:35 WBC (3.98-10.04) x10^3/uL RBC (3.93-5.22) x10^6/uL Hgb (11.2-15.7) g/dL Hct (34.1-44.9) % MCV (79.4-94.8) fL MCH (25.6-32.2) pg MCHC (32.2-35.5) g/dL RDW (11.7-14.4) % Plt Count (182-369) x10^3/uL MPV (9.4-12.3) fL Gran % (34.0-71.1) % Immature Gran % (Auto) (0.001-0.429) % Nucleat RBC Rel Count (0.00-0.2) % Eos # (Auto) (0.04-0.36) x10^3/uL Immature Gran # (Auto) (0.001-0.031) x10^3u/L Absolute Lymphs (auto) (1.18-3.74) x10^3/uL Absolute Monos (auto) (0.24-0.86) x10^3/uL Absolute Nucleated RBC (0.00-0.012) x10^3u/L Lymphocytes % (19.3-51.7) % Monocytes % (4.7-12.5) % Eosinophils % (0.7-5.8) % Basophils % (0.1-1.2) % Absolute Granulocytes (1.56-6.13) x10^3/uL Basophils # (0.01-0.08) x10^3/uL Sodium (135-145) mmol/L Potassium 3.4 L (3.5-5.1) mmol/L Chloride (98-107) mmol/L Carbon Dioxide (22-30) mmol/L Anion Gap (5-15) MEQ/L BUN (7-17) mg/dL Creatinine (0.52-1.04) mg/dL Estimated GFR ML/MIN Glucose (74-106) mg/dL POC Glucometer 112 H (74 to 106) mg/dL Calcium (8.4-10.2) mg/dL Magnesium (1.6-2.3) mg/dL Total Bilirubin (0.2-1.3) mg/dL AST (14-36) U/L ALT (0-35) U/L Alkaline Phosphatase (38-126) U/L Serum Total Protein (6.3-8.2) g/dL Albumin (3.5-5.0) g/dL Radiology Exams: Radiology Procedures Category Date Time Status CHEST 2 VIEWS (PA AND LAT) Urgent Exams 01/18/24 10:20 Completed CHEST WITHOUT CONTRAST [CT] Urgent Exams 01/17/24 11:14 Completed PULMONARY PERF VENTILATION [NUCMED] Routine Exams 01/18/24 08:00 Completed Multi-Disciplinary Progress Notes: Multi-Disciplinary Progress Notes 01/18/24 13:46 Case Management Note by Veronica Easton HAS ACCEPTED PATIENT. Initialized on 01/18/24 13:46 - END OF NOTE 01/18/24 12:00 (created 01/18/24 12:30) Case Management Note by Veronica Easton S/W PATIENT AND AGAIN REGARDING DC PLAN- SHE WOULD NOW LIKE TO HAVE A SHORT TERM REHAB STAY AT [facility]. SHE SAYS SHE HAS BEEN THERE BEFORE. REFERRAL FAXED. PASRR DONE, NO LEVEL II REQUIRED. THIS WAS FAXED TO [facility] AND PLACED ON CHART. Initialized on 01/18/24 12:30 - END OF NOTE Assessment/Plan (1) Acute hypoxic respiratory failure Current Visit: Yes Status: Acute Code(s): J96.01 - ACUTE RESPIRATORY FAILURE WITH HYPOXIA (2) Afib Current Visit: Yes Status: Acute Code(s): I48.91 - UNSPECIFIED ATRIAL FIBRILLATION (3) CHF (congestive heart failure) Current Visit: Yes Status: Acute Code(s): I50.9 - HEART FAILURE, UNSPECIFIED (4) Cellulitis Current Visit: Yes Status: Acute Assessment & Plan: Patient examination anf evaluation Venous ultrasounds reviewed and discussed with nurse and patient demonstrating negative for any occlusion Agree with medicine team. Patient likely demonstrating superimposed cellulitis and would benefit from continued stay with IV abx and compression therapy secondary to venous insuffiecny and localized edema. Unna boots applied the bilateral lower extremity with moderate compression. Will follow with you Code(s): L03.90 - CELLULITIS, UNSPECIFIED (5) Type 2 diabetes mellitus Current Visit: Yes Status: Acute (6) UTI (urinary tract infection) Current Visit: Yes Status: Acute Qualifiers: Urinary tract infection type: acute cystitis Hematuria presence: without hematuria Qualified Code(s): N30.00 - Acute cystitis without hematuria Code(s): N39.0 - URINARY TRACT INFECTION, SITE NOT SPECIFIED
[2024-01-18] MEDS: LASIX 20 MG PO SCH (17:17)
--- NOTE | 2024-01-19 05:17 | PCM.DS ---
Discharge Summary Date of Admission: 01/16/24 05:41 Date of Discharge: 01/19/24 Admitting Physician: GABRIEL FAIRBANKS MD Consults: Consults on Case 01/16/24 09:05 Consult Podiatry ROUTINE Primary Care Provider: CRUZ GONZALES NP Allergies Allergies No Known Drug Allergies Allergy (Verified 01/15/24 01:34) Hospital Summary - Hospital Course Hospital Course: is a 83 year old female with CHF, afib presented with shortness of breath in the ED and found to be hypoxic 88% on room air that improved with duonebs and supplemental oxygen, found to have a UTI as well and treated with rocephin. CXR negative for acute cardiopulmonary process. BLE edema and erythema. Negative venous doppler bilaterally. CtT chest showing showing bilateral patch groundglass airspace disease/ cardiomegaly without CHF. VQ scan with low probability for PE. Patient to discharge to rehab. Will send on cefuroxime for UTI/cellulities with podiatry follow up. Podiatry consulted Unna boots applied the bilateral lower extremity with moderate compression. They will follow up on OP basis. Patient is psychologically stable and require less than 30 days rehab stay. Discharge Note New Diagnosis: UTI/cellulitis/hypoxia New Medications: cefuroxime Follow Up: podiatry/pcp Latest Assessment & Plan (1) UTI (urinary tract infection) Current Visit: Yes Status: Acute Qualifiers: Urinary tract infection type: acute cystitis Hematuria presence: without hematuria Qualified Code(s): N30.00 - Acute cystitis without hematuria Assessment & Plan: -UA suspicious for UTI, rocephin started in ED, will continue - follow cultures 01/15: -cultures with gram - , continue ceftriaxone for now 01/16: -Ecoli on ucult with sensitivities to ceftriaxone, will continue while IP Code(s): N39.0 - URINARY TRACT INFECTION, SITE NOT SPECIFIED (2) Acute hypoxic respiratory failure Current Visit: Yes Status: Acute Assessment & Plan: -may be secondary to CHF - continue lasix -CXR with no acute findings -Supplemental oxygen with goal spo2 >92% -NEBS prn -RT eval -Ddimer WNL 01/15: -Still requiring 2L with dyspnea - CXR unremarkable - will order CT chest - delayed due to IV malfunction- will obtain 01/17/2401/17: -Qualify for home oxygen -CT showing bilateral patch groundglass airspace disease/ cardiomegaly without CHF Code(s): J96.01 - ACUTE RESPIRATORY FAILURE WITH HYPOXIA (3) CHF (congestive heart failure) Current Visit: Yes Status: Acute Assessment & Plan: -No recent echo on file -continue home meds -BNP 819 01/15: -echo -lasix 40 bid -repeat BNP 01/16: BNP increased to 1520 - continue IV lasix 01/17: -CTA without CHF, will resume home dose of lasix Code(s): I50.9 - HEART FAILURE, UNSPECIFIED (4) Afib Current Visit: Yes Status: Acute Assessment & Plan: -continue home meds -tele Code(s): I48.91 - UNSPECIFIED ATRIAL FIBRILLATION (5) Hypothyroid Current Visit: Yes Status: Acute Assessment & Plan: -continue levothyroxine -TSH WNL Code(s): E03.9 - HYPOTHYROIDISM, UNSPECIFIED (6) Type 2 diabetes mellitus Current Visit: Yes Status: Acute Assessment & Plan: -A1c 5.36 -ADA diet -low dose SSI -Takes trulicity at home Weakness -PT eval with recommendations for rehab stay - will require 30 days or less for strengthening VTE: eliquis PPI: protonix Dispo: 1-2 days (7) Cellulitis Current Visit: Yes Status: Acute Assessment & Plan: -venous stasis dermatitis with superimposed cellulitis -Venous doppler negative -podiatry consult -elevated legs -marii borders -clindamycin/ceftriaxone -ESR/CRP 01/16: -Podiatry note reviewed, agree with plan - will continue with unna boots and IV abx Code(s): L03.90 - CELLULITIS, UNSPECIFIED (8) Hypokalemia Current Visit: Yes Status: Acute Assessment & Plan: -potassium at 3.4 this morning will replenish per protocol 01/16: resolved will add daily K+ 01/17: -secondary to diuresis - replenish per protocol Code(s): E87.6 - HYPOKALEMIA I spent 35 minutes [id number] with the patient on the day of discharge performing discharge exam, discussing hospital stay and discharge instructions with patient and caregivers, preparation of discharge records, prescriptions & referral forms and addressing any questions/concerns the patient had as documented above. - Vitals & Intake/Output Vital Signs: Vital Signs Temperature 97.6 F 01/19/24 03:54 Pulse Rate 88 01/19/24 03:54 Respiratory Rate 23 01/19/24 03:54 Blood Pressure 136/88 01/19/24 03:54 O2 Sat by Pulse Oximetry 95 01/19/24 03:54 Intake & Output: Intake & Output 01/16/24 01/17/24 01/18/24 01/19/24 11:59 11:59 11:59 11:59 Intake Total 1440 1052 624 0345 Output Total 1225 300 Balance 1440 1530 -245 780 Weight 95.7 kg 94.7 kg 94.7 kg - Lab Result Diagrams: 01/19/24 05:20 01/19/24 05:20 Lab Results-Last 24 Hrs: Lab Results-Last 24 Hours 01/18/24 01/18/24 01/18/24 Range/Units 05:20 05:20 06:10 WBC 9.5 (3.98-10.04) x10^3/uL RBC 2.96 L (3.93-5.22) x10^6/uL Hgb 10.0 L (11.2-15.7) g/dL Hct 31.4 L (34.1-44.9) % MCV 106.1 H (79.4-94.8) fL MCH 33.8 H (25.6-32.2) pg MCHC 31.8 L (32.2-35.5) g/dL RDW 13.3 (11.7-14.4) % Plt Count 313 (182-369) x10^3/uL MPV 8.7 L (9.4-12.3) fL Gran % 68.8 (34.0-71.1) % Immature Gran % (Auto) 0.5 H (0.001-0.429) % Nucleat RBC Rel Count 0.0 (0.00-0.2) % Eos # (Auto) 0.14 (0.04-0.36) x10^3/uL Immature Gran # (Auto) 0.05 H (0.001-0.031) x10^3u/L Absolute Lymphs (auto) 1.29 (1.18-3.74) x10^3/uL Absolute Monos (auto) 1.46 H (0.24-0.86) x10^3/uL Absolute Nucleated RBC 0.00 (0.00-0.012) x10^3u/L Lymphocytes % 13.6 L (19.3-51.7) % Monocytes % 15.4 H (4.7-12.5) % Eosinophils % 1.5 (0.7-5.8) % Basophils % 0.2 (0.1-1.2) % Absolute Granulocytes 6.52 H (1.56-6.13) x10^3/uL Basophils # 0.02 (0.01-0.08) x10^3/uL Sodium 135 (135-145) mmol/L Potassium 3.0 L* (3.5-5.1) mmol/L Chloride 94 L (98-107) mmol/L Carbon Dioxide 34 H (22-30) mmol/L Anion Gap 9.9 (5-15) MEQ/L BUN 12 (7-17) mg/dL Creatinine 0.61 (0.52-1.04) mg/dL Estimated GFR 88.7 ML/MIN Glucose 88 (74-106) mg/dL POC Glucometer (74 to 106) mg/dL Calcium 8.2 L (8.4-10.2) mg/dL Magnesium 1.9 (1.6-2.3) mg/dL Total Bilirubin 0.50 (0.2-1.3) mg/dL AST 42 H (14-36) U/L ALT 27 (0-35) U/L Alkaline Phosphatase 103 (38-126) U/L Serum Total Protein 6.6 (6.3-8.2) g/dL Albumin 3.3 L (3.5-5.0) g/dL 01/18/24 01/18/24 01/18/24 Range/Units 07:28 11:44 12:35 WBC (3.98-10.04) x10^3/uL RBC (3.93-5.22) x10^6/uL Hgb (11.2-15.7) g/dL Hct (34.1-44.9) % MCV (79.4-94.8) fL MCH (25.6-32.2) pg MCHC (32.2-35.5) g/dL RDW (11.7-14.4) % Plt Count (182-369) x10^3/uL MPV (9.4-12.3) fL Gran % (34.0-71.1) % Immature Gran % (Auto) (0.001-0.429) % Nucleat RBC Rel Count (0.00-0.2) % Eos # (Auto) (0.04-0.36) x10^3/uL Immature Gran # (Auto) (0.001-0.031) x10^3u/L Absolute Lymphs (auto) (1.18-3.74) x10^3/uL Absolute Monos (auto) (0.24-0.86) x10^3/uL Absolute Nucleated RBC (0.00-0.012) x10^3u/L Lymphocytes % (19.3-51.7) % Monocytes % (4.7-12.5) % Eosinophils % (0.7-5.8) % Basophils % (0.1-1.2) % Absolute Granulocytes (1.56-6.13) x10^3/uL Basophils # (0.01-0.08) x10^3/uL Sodium (135-145) mmol/L Potassium 3.4 L (3.5-5.1) mmol/L Chloride (98-107) mmol/L Carbon Dioxide (22-30) mmol/L Anion Gap (5-15) MEQ/L BUN (7-17) mg/dL Creatinine (0.52-1.04) mg/dL Estimated GFR ML/MIN Glucose (74-106) mg/dL POC Glucometer 89 112 H (74 to 106) mg/dL Calcium (8.4-10.2) mg/dL Magnesium (1.6-2.3) mg/dL Total Bilirubin (0.2-1.3) mg/dL AST (14-36) U/L ALT (0-35) U/L Alkaline Phosphatase (38-126) U/L Serum Total Protein (6.3-8.2) g/dL Albumin (3.5-5.0) g/dL 01/18/24 01/18/24 01/18/24 Range/Units 16:38 18:15 21:00 WBC (3.98-10.04) x10^3/uL RBC (3.93-5.22) x10^6/uL Hgb (11.2-15.7) g/dL Hct (34.1-44.9) % MCV (79.4-94.8) fL MCH (25.6-32.2) pg MCHC (32.2-35.5) g/dL RDW (11.7-14.4) % Plt Count (182-369) x10^3/uL MPV (9.4-12.3) fL Gran % (34.0-71.1) % Immature Gran % (Auto) (0.001-0.429) % Nucleat RBC Rel Count (0.00-0.2) % Eos # (Auto) (0.04-0.36) x10^3/uL Immature Gran # (Auto) (0.001-0.031) x10^3u/L Absolute Lymphs (auto) (1.18-3.74) x10^3/uL Absolute Monos (auto) (0.24-0.86) x10^3/uL Absolute Nucleated RBC (0.00-0.012) x10^3u/L Lymphocytes % (19.3-51.7) % Monocytes % (4.7-12.5) % Eosinophils % (0.7-5.8) % Basophils % (0.1-1.2) % Absolute Granulocytes (1.56-6.13) x10^3/uL Basophils # (0.01-0.08) x10^3/uL Sodium (135-145) mmol/L Potassium 3.9 (3.5-5.1) mmol/L Chloride (98-107) mmol/L Carbon Dioxide (22-30) mmol/L Anion Gap (5-15) MEQ/L BUN (7-17) mg/dL Creatinine (0.52-1.04) mg/dL Estimated GFR ML/MIN Glucose (74-106) mg/dL POC Glucometer 111 H 84 (74 to 106) mg/dL Calcium (8.4-10.2) mg/dL Magnesium (1.6-2.3) mg/dL Total Bilirubin (0.2-1.3) mg/dL AST (14-36) U/L ALT (0-35) U/L Alkaline Phosphatase (38-126) U/L Serum Total Protein (6.3-8.2) g/dL Albumin (3.5-5.0) g/dL Micro Results-Entire Visit: Microbiology 01/15/24 01:38 Urine Culture - Final Urine, Catheterized Escherichia Coli 01/15/24 04:55 Blood Culture - Preliminary Blood 01/15/24 02:01 Blood Culture - Preliminary Blood Accuchecks Date 01/18/24 Date 01/18/24 Date 01/18/24 Date 01/18/24 Time 21:30 - Radiology Exams Ordered Rad Exams-Entire Visit: Radiology Procedures Category Date Time Status CHEST 2 VIEWS (PA AND LAT) Urgent Exams 01/18/24 10:20 Completed CHEST WITHOUT CONTRAST [CT] Urgent Exams 01/17/24 11:14 Completed PULMONARY PERF VENTILATION [NUCMED] Routine Exams 01/18/24 08:00 Completed - Procedures and Test Procedures and Tests throughout Hospitalization: Therapy Orders & Screens 01/15/24 01:44 BiPap/CPAP STAT Comment: 01/15/24 04:49 RT Screen per Nursing Assess ONCE Comment: Protocol Order Physician Instructions: Greater than 3 points order RT Admission Screen Reason For Exam: Triggered on Admission Diagnosis: UTI Diagnosis: UTI Pneumonia: No Home O2: No Asthma: No CHF: Yes Home CPAP/BIPAP: No Home Nebs/MDI: Yes Total Points: 8 01/15/24 05:10 Respiratory Therapy Assessment DAILY Comment: Diagnosis: UTI 01/15/24 05:11 Oxygen Nasal Cannula 2 lpm Comment: Diagnosis: UTI 01/17/24 11:13 PT Eval & Treat (MD Order) ONCE Reason for Eval:: WEAKNESS Diagnosis: UTI 01/18/24 08:21 Respiratory Therapy Assessment DAILY Comment: Diagnosis: EXAC CHF, BLE CELLULITIS, UTI 01/18/24 11:58 Qualify for Home Oxygen TODAY Comment: Diagnosis: EXAC CHF, BLE CELLULITIS, UTI Discharge Exam General Appearance: no apparent distress Neurologic Exam: alert, oriented x 3, cooperative Eye Exam: PERRL Ears, Nose, Throat Exam: normal ENT inspection Neck Exam: normal inspection Respiratory Exam: normal breath sounds, lungs clear Cardiovascular Exam: regular rate/rhythm, normal heart sounds Gastrointestinal/Abdomen Exam: soft, normal bowel sounds Pelvic Exam: deferred Rectal Exam: deferred Back Exam: normal inspection Extremity Exam: other (BLE with bilateral unna boots) Final Diagnosis/Problem List - Final Discharge Diagnosis/Problem (1) UTI (urinary tract infection) Current Visit: Yes Status: Acute Code(s): N39.0 - URINARY TRACT INFECTION, SITE NOT SPECIFIED (2) Acute hypoxic respiratory failure Current Visit: Yes Status: Acute Code(s): J96.01 - ACUTE RESPIRATORY FAILURE WITH HYPOXIA (3) CHF (congestive heart failure) Current Visit: Yes Status: Chronic Code(s): I50.9 - HEART FAILURE, UNSPECIFIED (4) Afib Current Visit: Yes Status: Chronic Code(s): I48.91 - UNSPECIFIED ATRIAL FIBRILLATION (5) Hypothyroid Current Visit: Yes Status: Chronic Code(s): E03.9 - HYPOTHYROIDISM, UNSPECIFIED (6) Type 2 diabetes mellitus Current Visit: Yes Status: Chronic (7) Cellulitis Current Visit: Yes Status: Acute Code(s): L03.90 - CELLULITIS, UNSPECIFIED (8) Hypokalemia Current Visit: Yes Status: Acute Code(s): E87.6 - HYPOKALEMIA (9) Weakness Current Visit: Yes Status: Chronic Code(s): R53.1 - WEAKNESS - Discharge Disposition: DC TO ANY "OTHER" RESIDENTIAL Condition: Stable Prescriptions: New Cefuroxime Axetil [Cefuroxime] 500 mg PO BID 5 Days #10 tablet Potassium Chloride 20 meq PO BID 30 Days #60 tablet Continue Calcium Carb, Citrate/Vit D3 [Calcium + D3 ER Tablet] 1 tab PO DAILY Levothyroxine Sodium 100 Mcg [Synthroid 100 Mcg] 100 mcg PO DAILY Gabapentin 400 mg PO DAILY Aripiprazole [Abilify] 2 mg PO DAILY Amiodarone HCl 200 mg [Cordarone 200 MG] 200 mg PO UD Duloxetine HCl 60 mg PO HS Fluticasone/Vilanterol [Breo Ellipta 100-25 Mcg Inhalr] 1 inhaler IH DAILY Alendronate Sodium 70 mg [Fosamax 70 MG] 70 mg PO WEEKLY Apixaban [Eliquis 2.5 mg Tablet] 2.5 mg PO BID Meloxicam 7.5 mg PO DAILY Dulaglutide [Trulicity] 0.75 mg IN WEEKLY Losartan Potassium 50 mg PO DAILY Multivitamin/Iron/Folic Acid [Centrum Adults Tablet] 1 tab PO DAILY Furosemide 20 mg [Lasix 20 mg] 20 mg PO BID dilTIAZem HCL [Cardizem Cd] 300 mg PO DAILY Pravastatin Sodium 20 mg PO DAILY PANTOPRAZOLE 40 mg Tablet [Protonix 40MG Tablet] 40 mg PO DAILY Metoprolol Succinate 50 mg PO BID Acetaminophen [Tylenol] 325 mg PO DAILY PRN PRN PRN Reason: Pain Discontinued Potassium Citrate [Potassium Citrate ER] 10 meq PO BID Additional Instructions: RESIDENTIAL ORDERS: ADMIT TO SNF [address] ADA DIET ACHS ACCU CHECKS WEIGH DAILY OXYGEN AT 2L/NC- WEAN TOLERATED ( DOES NOT HAVE HOME OXYGEN) SEE DRESSING CHANGE ORDERS BELOW: SNF to change dressings 2 times per week. Apply iodine and mepilex to wound on left lateral leg. Apply unna boots, fan-folded, to level of tibial tuberosity. Wrap with kerlix to same level. Wrap with coban with 50% compression to same level. Apply size F tubigrip over thighs, overlapping upper portion of unna boot. SEE ATTACHED MED LIST -Check potassium level 01/19/24 Follow up with: TANYA ESTEVEZ DPM [ACTIVE STAFF] - (WANTING HER TO FOLLOW UP ON 01/23 - NEEDS SCHEDULED ) CRUZ GONZALES, [employer] [Primary Care Provider] - 01/25/24 10:30 am
[2024-01-19 05:29] LABS: Absolute Neutrophil Ct (ANC) 5.32 x10^3/uL (1.56-6.13); BASOPHIL % 0.4 % (0.1-1.2); Basophil (Absolute #) 0.03 x10^3/uL (0.01-0.08); Eosinophil % 2.9 % (0.7-5.8); Eosinophil (Absolute #) 0.23 x10^3/uL (0.04-0.36); Hematocrit 33.7 % (34.1-44.9); Hemoglobin 10.5 g/dL (11.2-15.7); IMMATURE GRAN # 0.06 x10^3u/L (0.001-0.031); IMMATURE GRAN % 0.8 % (0.001-0.429); Lymphocyte (Absolute #) 1.19 x10^3/uL (1.18-3.74); Lymphocytes % 15.1 % (19.3-51.7); Mean Cell Volume 105.6 fL (79.4-94.8); Mean Corpuscular Hemoglobin 32.9 pg (25.6-32.2); Mean Corpuscular Hgb Concent. 31.2 g/dL (32.2-35.5); Mean Platelet Volume 8.6 fL (9.4-12.3); Monocyte (Absolute #) 1.05 x10^3/uL (0.24-0.86); Monocytes % 13.3 % (4.7-12.5); Neutrophil % 67.5 % (34.0-71.1); Platelet Count 312 x10^3/uL (182-369); Red Blood Count 3.19 x10^6/uL (3.93-5.22); Red Cell Distribution Width 13.2 % (11.7-14.4); White Blood Count 7.9 x10^3/uL (3.98-10.04)
[2024-01-19 05:51] LABS: ALBUMIN 3.4 g/dL (3.5-5.0); ANION GAP 8.7 MEQ/L (5-15); BILIRUBIN,TOTAL 0.5 mg/dL (0.2-1.3); Calcium 8.4 mg/dL (8.4-10.2); Creatinine 1 0.55 mg/dL (0.52-1.04); EST GLOMERULAR FILTRATION RATE 90.9 ML/MIN; MAGNESIUM 1.9 mg/dL (1.6-2.3); Total Protein 6.8 g/dL (6.3-8.2)
[2024-01-19] MEDS: Klor Con PO ONE ×2 (06:14→08:26)
[2024-01-19 07:54] VITALS: O2SAT 92
[2024-01-19] MEDS ORDERED: Klor Con PO SCH (10:00)
[2024-01-19 12:04] VITALS: BP 125/75; PULSE 86; RESP 21; TEMP 97.7
[2024-01-21] MEDS ORDERED: Fosamax 70 MG PO SCH (06:00)
== END 2024-01-19 14:07 | DRG 689 ==
LOC: ED 01:10 → MED SURG 03:29 → OBSVTOIN 01-16 05:41
PROVIDERS: ADMIT Student in an Organized Health Care Education/Training Program; ATTEND Student in an Organized Health Care Education/Training Program
PROC: 2W1MX6Z Compression of Left Lower Extremity using Pressure Dressing (ICD-10-PCS; principal; 2024-01-16)
PROC: 2W1LX6Z Compression of Right Lower Extremity using Pressure Dressing (ICD-10-PCS; 2024-01-16)
DX: N39.0 Urinary tract infection, site not specified (principal); J96.01 Acute respiratory failure with hypoxia; L03.115 Cellulitis of right lower limb; L03.116 Cellulitis of left lower limb; B96.20 Unspecified Escherichia coli [E. coli] as the cause of diseases classified elsewhere; I48.91 Unspecified atrial fibrillation; I11.0 Hypertensive heart disease with heart failure; I50.9 Heart failure, unspecified; E11.9 Type 2 diabetes mellitus without complications; E03.9 Hypothyroidism, unspecified; E87.6 Hypokalemia; R53.1 Weakness; E78.5 Hyperlipidemia, unspecified; Z79.899 Other long term (current) drug therapy; Z79.01 Long term (current) use of anticoagulants
CPT/HCPCS: 0241U; 29580; 36000; 36415; 36600; 51702; 70450; 71045; 71046; 71250; 78582; 80053; 81001; 82375; 82803; 82947; 83036; 83605; 83735; 83880; 84132; 84145; 84443; 84484; 85025; 85379; 85652; 86140; 87040; 87077; 87086; 87186; 93268; 93306; 93970; 94002; 94762; 96365; 96374; 97161; 97530; 99204; 99232; 99285; A9540; A9567; G0378; Q3014; J0696; J1940; A9270-GY

== ENCOUNTER 2024-08-07 23:15 | Inpatient (IN) | payer MEDICARE, OTHER ==
--- NOTE | 2024-08-07 23:28 | ERPHSYRPT ---
- History of Present Illness Time Seen by Provider: 08/07/24 23:24 Source: patient Exam Limitations: no limitations Physician History: 83-year-old female in hospice history of COPD CHF, chronic A-fib on Eliquis presents to our ED for evaluation status post what appears to be respiratory failure. Patient presented to our ED via EMS. Upon EMS arrival patient was hypoxic hypotensive. Patient normally requires oxygen 2 to 3 L nasal cannula. Patient's family observed that oxygenation was decreasing so they increase the supplemental oxygen to 5 L. EMS started norepinephrine at 5 mics and route to our ED. However upon arrival to our ED patient's blood pressure was 155 systolic off of the norepinephrine drip. Patient saturating 100% on BiPAP. Patient appears to be somewhat lethargic. No signs of trauma. No reports of falls or injuries. We are currently awaiting family to present to discuss ongoing management. Patient is stable for the moment. HPI limited due to patient's mental status. HPI primarily obtained from EMS. Portions of this note were created with voice recognition technology. There may be grammatical, spelling, punctuation or sound alike errors Timing/Duration: today Severity: severe Modifying Factors: Improves With: nothing Associated Symptoms: denies symptoms Allergies/Adverse Reactions: No Known Drug Allergies Allergy (Verified 01/15/24 01:34) Home Medications: Acetaminophen [Tylenol] 325 mg PO DAILY PRN PRN 01/15/24 [History] Alendronate Sodium 70 mg [Fosamax 70 MG] 70 mg PO WEEKLY 01/15/24 [History] Amiodarone HCl 200 mg [Cordarone 200 MG] 200 mg PO .EVERY OTHER DAY 01/15/24 [History] Apixaban [Eliquis 2.5 mg Tablet] 2.5 mg PO BID 01/15/24 [History] Aripiprazole [Abilify] 2 mg PO DAILY 01/15/24 [History] Calcium Carb, Citrate/Vit D3 [Calcium + D3 ER Tablet] 1 tab PO DAILY 01/15/24 [History] Dulaglutide [Trulicity] 0.75 mg IN WEEKLY 01/15/24 [History] Duloxetine HCl 60 mg PO HS 01/15/24 [History] Fluticasone/Vilanterol [Breo Ellipta 100-25 Mcg Inhalr] 1 inhaler IH DAILY 01/15/24 [History] Furosemide 20 mg [Lasix 20 mg] 20 mg PO BID 01/15/24 [History] Gabapentin 400 mg PO DAILY 01/15/24 [History] Levothyroxine Sodium 100 Mcg [Synthroid 100 Mcg] 100 mcg PO DAILY 01/15/24 [History] Losartan Potassium 50 mg PO DAILY 01/15/24 [History] Meloxicam 7.5 mg PO DAILY 01/15/24 [History] Metoprolol Succinate 50 mg PO BID 01/15/24 [History] Multivitamin/Iron/Folic Acid [Centrum Adults Tablet] 1 tab PO DAILY 01/15/24 [History] PANTOPRAZOLE 40 mg Tablet [Protonix 40MG Tablet] 40 mg PO DAILY 01/15/24 [History] Pravastatin Sodium 20 mg PO DAILY 01/15/24 [History] dilTIAZem HCL [Cardizem Cd] 300 mg PO DAILY 01/15/24 [History] Potassium Chloride 10 meq PO BID 08/08/24 [History] Hx Tetanus, Diphtheria Vaccination/Date Given: Yes Hx Influenza Vaccination/Date Given: Yes Hx Pneumococcal Vaccination/Date Given: No Travel Risk - Emerging Infectious Disease Are you exhibiting symptoms associated with any current EIDs: Yes Symptoms: Shortness of Breath - Review of Systems All Other Systems: Unable due to condition - Past Medical History Pertinent Past Medical History: Yes Neurological History: Peripheral Neuropathy ENT History: No Pertinent History Cardiac History: Arrhythmia, High Cholesterol, Hypertension Respiratory History: No Pertinent History, CHF Endocrine Medical History: Diabetes Type II Musculoskeletal History: No Pertinent History GI Medical History: No Pertinent History History: No Pertinent History Psycho-Social History: Anxiety Female Reproductive Disorders: No Pertinent History Other Medical History: a fib, history of left ankle fracture that did not require surgery - Past Surgical History Past Surgical History: Yes Neuro Surgical History: No Pertinent History Cardiac: No Pertinent History Respiratory: No Pertinent History Gastrointestinal: Cholecystectomy Genitourinary: No Pertinent History Musculoskeletal: Orthopedic Surgery Female Surgical History: Hysterectomy Other Surgical History: 2 left ankle surgeries, rupa in left leg, back surgery X 2, lumpectomy, 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) - Social History Smoking Status: Never smoker Exposure to second hand smoke: No Drug Use: none - Social Determinants of Health Will the patient participate in the screening: Yes Do you worry about a steady place to live?: No In the past 12 months,have you had to go without utilities?: No Transportation Issues: No Has anyone in your support network made you feel unsafe?: No Have you or anyone in your house had to go w/o enough food: No - Nursing Vital Signs Nursing Vital Signs: Initial Vital Signs Pulse Rate 74 08/07/24 23:23 Respiratory Rate 18 08/07/24 23:23 Blood Pressure 171/86 08/07/24 23:23 O2 Sat by Pulse Oximetry 100 08/07/24 23:23 Pain Scale Pain Intensity 0 - Physical Exam General Appearance: no apparent distress, alert, lethargy Eye Exam: PERRL/EOMI, eyes nml inspection Ears, Nose, Throat Exam: normal ENT inspection, TMs normal, pharynx normal, moist mucous membranes Neck Exam: normal inspection, non-tender, supple, full range of motion Respiratory Exam: normal breath sounds, diminished breath sounds, crackles/rales, No respiratory distress Cardiovascular Exam: regular rate/rhythm, normal heart sounds, normal peripheral pulses Gastrointestinal/Abdomen Exam: soft, normal bowel sounds, No tenderness, No mass Back Exam: normal inspection, normal range of motion, No CVA tenderness, No vertebral tenderness Extremity Exam: normal inspection, normal range of motion, pelvis stable Neurologic Exam: alert, oriented x 3, cooperative, normal mood/affect, sensation nml, No motor deficits Skin Exam: normal color, warm, dry, No rash Lymphatic Exam: No adenopathy SpO2 Interpretation: normal SpO2: 100 O2 Delivery: Room Air - Course Nursing assessment & vital signs reviewed: Yes - CT Exams Head CT Interpretation: Tele-radiologist Report (No acute finding) Ordered Tests: Active Orders 24 hr Category Date Time Status Hot Worker STAT Care 08/07/24 23:22 Active EKG-ER Only STAT Care 08/07/24 23:22 Active IV Insertion STAT Care 08/07/24 23:22 Active Pulse Oximetry (ED) STAT Care 08/07/24 23:22 Active CHEST 1 VIEW (PORTABLE) Stat Exams 08/07/24 23:22 Completed HEAD WITHOUT CONTRAST [CT] Stat Exams 08/07/24 23:29 Completed ABG [ARTERIAL BLOOD GASES] Stat Lab 08/07/24 23:28 Completed CBC W DIFF Stat Lab 08/07/24 23:59 Completed CMP Stat Lab 08/07/24 23:59 Completed CULTURE,URINE Stat Lab 08/07/24 23:45 Received MAGNESIUM Stat Lab 08/07/24 23:59 Completed NT PRO BNPII Stat Lab 08/07/24 23:59 Completed TROPONIN Q4H Lab 08/07/24 23:59 Completed TROPONIN Q4H Lab 08/08/24 03:30 Ordered TROPONIN Q4H Lab 08/08/24 07:30 Ordered UA W/RFX UR CULTURE Stat Lab 08/07/24 23:45 Completed BiPap/CPAP STAT RT 08/07/24 23:34 Active Transfer Order Routine Transfer 08/08/24 Ordered Medication Summary Generic Name Dose Route Start Last Admin Trade Name Freq PRN Reason Stop Dose Admin Azithromycin 500 mg/ Sodium 250 mls @ 250 mls/hr 08/08/24 00:55 Chloride IV 08/08/24 01:54 STAT STA Discontinued Medications Generic Name Dose Route Start Last Admin Trade Name Freq PRN Reason Stop Dose Admin Ceftriaxone Sodium 1 gm in 100 mls @ 200 mls/hr 08/08/24 00:52 08/08/24 01:39 Rocephin 1 Gm / 100 Ml Nacl IV 08/08/24 01:21 Infused STAT ONE Infusion Ceftriaxone Sodium 1 gm in 100 mls @ 200 mls/hr 08/08/24 00:55 08/08/24 01:39 Rocephin 1 Gm / 100 Ml Nacl IV 08/08/24 01:24 200 mls/hr STAT ONE 200 mls/hr Administration Ceftriaxone Sodium Confirm 08/08/24 00:59 Rocephin 1 Gm / 100 Ml Nacl Administered 08/08/24 01:00 Dose 1 gm in 100 mls @ ud IV .STK-MED ONE Ceftriaxone Sodium Confirm 08/08/24 01:38 Rocephin 1 Gm / 100 Ml Nacl Administered 08/08/24 01:39 Dose 1 gm in 100 mls @ ud IV .STK-MED ONE Lab/Rad Data: Laboratory Result Diagrams 08/07/24 23:59 08/07/24 23:59 Laboratory Results 08/07/24 08/07/24 08/07/24 Range/Units 23:59 23:59 23:59 WBC (3.98-10.04) x10^3/uL RBC (3.93-5.22) x10^6/uL Hgb (11.2-15.7) g/dL Hct (34.1-44.9) % MCV (79.4-94.8) fL MCH (25.6-32.2) pg MCHC (32.2-35.5) g/dL RDW (11.7-14.4) % Plt Count (182-369) x10^3/uL MPV (9.4-12.3) fL Gran % (34.0-71.1) % Immature Gran % (Auto) (0.001-0.429) % Nucleat RBC Rel Count (0.00-0.2) % Eos # (Auto) (0.04-0.36) x10^3/uL Immature Gran # (Auto) (0.001-0.031) x10^3u/L Absolute Lymphs (auto) (1.18-3.74) x10^3/uL Absolute Monos (auto) (0.24-0.86) x10^3/uL Absolute Nucleated RBC (0.00-0.012) x10^3u/L Lymphocytes % (19.3-51.7) % Monocytes % (4.7-12.5) % Eosinophils % (0.7-5.8) % Basophils % (0.1-1.2) % Absolute Granulocytes (1.56-6.13) x10^3/uL Basophils # (0.01-0.08) x10^3/uL Puncture Site pCO2 (35-45) mmHg pO2 (75-100) mmHg Base Excess (-2.0-2.0) O2 Saturation (94-100) g/dF ABG pH (7.35-7.45) ABG HCO3 (22-28) ABG O2 Sat (Measured) (95-100) % Loyd Test A-a Gradient a/A Ratio Hemoglobin Carboxyhemoglobin (0.0-6.9) % THgb Methemoglobin (1.4-1.5) % Potassium 4.0 (3.5-5.1) Temperature C POC O2 Flow Rate % Vent Mode Vent Rate /MIN Inspiratory BiPAP Expiratory BiPAP Sodium 139 (135-145) mmol/L Chloride 96 L (98-107) mmol/L Carbon Dioxide 33 H (22-30) mmol/L Anion Gap 13.6 (5-15) MEQ/L BUN 18 H (7-17) mg/dL Creatinine 0.52 (0.52-1.04) mg/dL Estimated GFR 92.1 ML/MIN Glucose 96 (74-106) mg/dL Calcium 8.9 (8.4-10.2) mg/dL Magnesium 2.0 (1.6-2.3) mg/dL Total Bilirubin 0.90 (0.2-1.3) mg/dL AST 38 H (14-36) U/L ALT 26 (0-35) U/L Alkaline Phosphatase 100 (38-126) U/L Troponin I < 0.012 (0.000-0.033) ng/mL NT-Pro-B Natriuret Pep 829 (<300) pg/mL Serum Total Protein 7.9 (6.3-8.2) g/dL Albumin 4.3 (3.5-5.0) g/dL Urine Color (Yellow) Urine Appearance (Clear) Urine pH (4.6-8.0) Ur Specific [place] (1.005-1.030) Urine Protein (Negative) Urine Glucose (UA) (Negative) mg/dL Urine Ketones (Negative) Urine Blood (Negative) Urine Nitrite (Negative) Urine Bilirubin (Negative) Urine Urobilinogen (0.2) mg/dL Ur Leukocyte Esterase (Negative) U Hyaline Cast (Auto) (0-2) /LPF Urine Microscopic RBC (0-5) /HPF Urine Microscopic WBC (0-5) /HPF Ur Epithelial Cells (None Seen) /HPF Urine Bacteria (None Seen) /HPF Urine Culture Reflexed (NO) Influenza Type A Ag NEGATIVE (NEGATIVE) Influenza Type B Ag NEGATIVE (NEGATIVE) RSV (PCR) NEGATIVE (NEGATIVE) SARS-CoV-2 (PCR) NEGATIVE (NEGATIVE) 08/07/24 08/07/24 08/07/24 Range/Units 23:59 23:45 23:28 WBC 7.5 (3.98-10.04) x10^3/uL RBC 3.22 L (3.93-5.22) x10^6/uL Hgb 10.8 L (11.2-15.7) g/dL Hct 35.1 (34.1-44.9) % MCV 109.0 H (79.4-94.8) fL MCH 33.5 H (25.6-32.2) pg MCHC 30.8 L (32.2-35.5) g/dL RDW 14.6 H (11.7-14.4) % Plt Count 210 (182-369) x10^3/uL MPV 9.2 L (9.4-12.3) fL Gran % 68.0 (34.0-71.1) % Immature Gran % (Auto) 0.4 (0.001-0.429) % Nucleat RBC Rel Count 0.0 (0.00-0.2) % Eos # (Auto) 0.15 (0.04-0.36) x10^3/uL Immature Gran # (Auto) 0.03 (0.001-0.031) x10^3u/L Absolute Lymphs (auto) 1.06 L (1.18-3.74) x10^3/uL Absolute Monos (auto) 1.13 H (0.24-0.86) x10^3/uL Absolute Nucleated RBC 0.00 (0.00-0.012) x10^3u/L Lymphocytes % 14.2 L (19.3-51.7) % Monocytes % 15.1 H (4.7-12.5) % Eosinophils % 2.0 (0.7-5.8) % Basophils % 0.3 (0.1-1.2) % Absolute Granulocytes 5.07 (1.56-6.13) x10^3/uL Basophils # 0.02 (0.01-0.08) x10^3/uL Puncture Site LEFT RADIAL pCO2 60 H* (35-45) mmHg pO2 201 H* (75-100) mmHg Base Excess 5.2 H (-2.0-2.0) O2 Saturation 97.7 (94-100) g/dF ABG pH 7.34 L (7.35-7.45) ABG HCO3 32.4 H* (22-28) ABG O2 Sat (Measured) 100.0 (95-100) % Loyd Test YES A-a Gradient 437 a/A Ratio 0.32 Hemoglobin 11.0 Carboxyhemoglobin 1.7 (0.0-6.9) % THgb Methemoglobin 0.6 L (1.4-1.5) % Potassium 4.2 (3.5-5.1) Temperature 37.0 C POC O2 Flow Rate 100 % Vent Mode bipap Vent Rate 18 /MIN Inspiratory BiPAP 20 Expiratory BiPAP 8 Sodium (135-145) mmol/L Chloride (98-107) mmol/L Carbon Dioxide (22-30) mmol/L Anion Gap (5-15) MEQ/L BUN (7-17) mg/dL Creatinine (0.52-1.04) mg/dL Estimated GFR ML/MIN Glucose (74-106) mg/dL Calcium (8.4-10.2) mg/dL Magnesium (1.6-2.3) mg/dL Total Bilirubin (0.2-1.3) mg/dL AST (14-36) U/L ALT (0-35) U/L Alkaline Phosphatase (38-126) U/L Troponin I (0.000-0.033) ng/mL NT-Pro-B Natriuret Pep (<300) pg/mL Serum Total Protein (6.3-8.2) g/dL Albumin (3.5-5.0) g/dL Urine Color Dark Yellow A (Yellow) Urine Appearance Turbid A (Clear) Urine pH 7.5 (4.6-8.0) Ur Specific [place] 1.020 (1.005-1.030) Urine Protein 100 A (Negative) Urine Glucose (UA) Negative (Negative) mg/dL Urine Ketones Negative (Negative) Urine Blood Moderate A (Negative) Urine Nitrite Positive A (Negative) Urine Bilirubin Negative (Negative) Urine Urobilinogen 1.0 A (0.2) mg/dL Ur Leukocyte Esterase Large A (Negative) U Hyaline Cast (Auto) NONE SEEN (0-2) /LPF Urine Microscopic RBC >100 A (0-5) /HPF Urine Microscopic WBC >100 A (0-5) /HPF Ur Epithelial Cells None Seen (None Seen) /HPF Urine Bacteria Many A (None Seen) /HPF Urine Culture Reflexed YES (NO) Influenza Type A Ag (NEGATIVE) Influenza Type B Ag (NEGATIVE) RSV (PCR) (NEGATIVE) SARS-CoV-2 (PCR) (NEGATIVE) - Progress Progress: improved Progress Note: Case discussed with hospitalist who accepts admission to observation at 1:32 AM. 83-year-old female on hospice history of COPD CHF, chronic A-fib on Eliquis presents to emergency department via EMS for evaluation of respiratory distress. Upon arrival to our ED patient was on BiPAP. Patient requires oxygen at home. She requires 3 L nasal cannula daily. Physical exam revealed patient to be somewhat lethargic. CT head negative for acute intracranial pathology. Patient had some 2+ pitting edema bilateral lower extremity however this appears to be chronic. Chest x-ray reveals a pneumonia. Patient has a significant urinary tract infection. Antibiotics initiated. O2 sat on BiPAP is 100%. Patient's blood pressure appears to be holding well without pressure support. Patient will be admitted for further evaluation and treatment. Plan of care discussed with patient's and daughter. They agree to admission at [facility] for further evaluation and treatment. Portions of this note were created with voice recognition technology. There may be grammatical, spelling, punctuation or sound alike errors Complexity of problem addressed is moderate acute complicated. No critical care time. Complexity of data reviewed and analyzed is extensive. Test ordered chest reviewed results analyzed and correlated clinically with history and physical exam. Risk of complication and or risk of morbidity/mortality of patient management is high. Patient requires hospitalization for further evaluation and treatment. Vital stable. Time spent admit patient approximately 20 minutes. Plan of care established for shared decision making. No social determinants of health present to impede follow-up. Portions of this note were created with voice recognition technology. There may be grammatical, spelling, punctuation or sound alike errors Counseled pt/family regarding: lab results, diagnosis, rad results - Departure Departure Disposition: Observation Clinical Impression: UTI (urinary tract infection), Respiratory distress, Macrocytic anemia, Pneumonia Condition: Stable Critical Care Time: No Referrals: CRUZ GONZALES, LEAD JAVASCRIPT ENGINEER [Primary Care Provider] - Follow up/PCP as directed
[2024-08-07 23:30] LABS: A-aADO2 437; ABG POTASSIUM 4.2 (3.5-5.1); ARTERIAL BLOOD GAS BASE EXCESS 5.2 (-2.0-2.0); ARTERIAL BLOOD GAS FIO2 100 %; ARTERIAL BLOOD GAS PCO2 60 mmHg (35-45); ARTERIAL BLOOD GAS PO2 201 mmHg (75-100); ARTERIAL BLOOD GAS VENT MODE bipap; ARTERIAL BLOOD GAS VENT RATE 18 /MIN; ARTERIAL BLOOD GAS pH 7.34 (7.35-7.45); CARBOXYHEMOGLOBIN 1.7 % THgb (0.0-6.9); HCO3- 32.4 (22-28); HGB O2 SAT 97.7 g/dF (94-100); Methhemoglobin 0.6 % (1.4-1.5); paO2 pAO1 0.32
[2024-08-07 23:31] LABS: ABG SITE LEFT RADIAL; ALLEN TEST OK? YES; BIPAP(E) 8; BIPAP(I) 20
[2024-08-08 00:17] LABS: Absolute Neutrophil Ct (ANC) 5.07 x10^3/uL (1.56-6.13); BASOPHIL % 0.3 % (0.1-1.2); Basophil (Absolute #) 0.02 x10^3/uL (0.01-0.08); Eosinophil (Absolute #) 0.15 x10^3/uL (0.04-0.36); Hematocrit 35.1 % (34.1-44.9); Hemoglobin 10.8 g/dL (11.2-15.7); IMMATURE GRAN # 0.03 x10^3u/L (0.001-0.031); IMMATURE GRAN % 0.4 % (0.001-0.429); Lymphocyte (Absolute #) 1.06 x10^3/uL (1.18-3.74); Lymphocytes % 14.2 % (19.3-51.7); Mean Corpuscular Hemoglobin 33.5 pg (25.6-32.2); Mean Corpuscular Hgb Concent. 30.8 g/dL (32.2-35.5); Mean Platelet Volume 9.2 fL (9.4-12.3); Monocyte (Absolute #) 1.13 x10^3/uL (0.24-0.86); Monocytes % 15.1 % (4.7-12.5); Platelet Count 210 x10^3/uL (182-369); Red Blood Count 3.22 x10^6/uL (3.93-5.22); Red Cell Distribution Width 14.6 % (11.7-14.4); White Blood Count 7.5 x10^3/uL (3.98-10.04)
[2024-08-08 00:19] LABS: Appearance Turbid (Clear); Bacteria Many /HPF (None Seen); Bilirubin Negative (Negative); Blood Moderate (Negative); Epithelial Cells None Seen /HPF (None Seen); Glucose, Urine Negative (Negative); Hyaline Casts NONE SEEN /LPF (0-2); Ketones Negative (Negative); Leukocyte Esterase Large (Negative); Nitrite Positive (Negative); Ph 7.5 (4.6-8.0); Protein,Urine Dip 100 (Negative); RBC >100 /HPF (0-5); WBC >100 /HPF (0-5)
--- NOTE | 2024-08-08 00:33 | XRAY ---
CLINICAL HISTORY: Lethargic/altered mental status COMPARISON: 01/15/2024 CT. TECHNIQUE: An axial non-contrast CT scan of the brain was performed from the skull base to the high parietal region. Coronal and sagittal sections have also been acquired. One of the following dose reduction techniques was utilized for this exam.Automated exposure control, adjustment of the mA and/or kV according to patient size, and use of iterative reconstruction. CTDI: 53.92 mGy, DLP: 1221.51 mGy-cm FINDINGS: Bilateral periventricular and subcortical hypodensities are suggestive of microvascular ischemic changes. Stable A few chronic lacunar infarcts are again noted in the bilateral gangliono-capsular area and left temporal lobe. Stable The ventricular system, cortical sulci, and basal cisterns are prominent and consistent with senile changes. No area of hyperacute or acute infarction is noted. No intracerebral or extra axial hematoma. Willis-white matter differentiation is maintained. No mass effect or midline shift. No space-occupying lesion was noted. Normal CT appearance of the posterior fossa structures, namely the cerebellar hemispheres, brainstem, and cerebellar peduncles. The IACs are unremarkable. The cerebello-pontine angles are clear. The pituitary gland, the pineal gland, and the optic chiasm are unremarkable. The osseous structures in the skull base are unremarkable. No definite calvarium fractures. Soft tissue opacification of the right maxillary sinus is noted; the rest of the scanned paranasal sinuses are clear. IMPRESSION: 1. No evidence of acute major territorial infarction, hemorrhage or mass effects. 2. Stable chronic microvascular angiopathy. 3. Age-appropriate senile atrophy. 4. No gross interval changes are noted. The report was ready at 11:23 PM MARKETING TECHNOLOGIST, 08/07/2024 and the call was completed at 11:28 PM MARKETING TECHNOLOGIST, 08/07/2024 at [phone] Peraza was informed regarding negative stroke findings in the report. Electronically Signed by: Daniel Fatima MD. (08/08/2024 00:29:07 EDT)
[2024-08-08 00:42] LABS: ALBUMIN 4.3 g/dL (3.5-5.0); ANION GAP 13.6 MEQ/L (5-15); BILIRUBIN,TOTAL 0.9 mg/dL (0.2-1.3); Calcium 8.9 mg/dL (8.4-10.2); Creatinine 1 0.52 mg/dL (0.52-1.04); EST GLOMERULAR FILTRATION RATE 92.1 ML/MIN; Total Protein 7.9 g/dL (6.3-8.2)
[2024-08-08 00:56] LABS: INFLUENZA A NEGATIVE (NEGATIVE); INFLUENZA B NEGATIVE (NEGATIVE); RESPIRATORY SYNCTIAL VIRUS NEGATIVE (NEGATIVE); SARS-CoV-2 Xpert Express NEGATIVE (NEGATIVE)
[2024-08-08] MEDS ORDERED: ROCEPHIN 1 GM / 100 ML NaCl 1 GM/100 ML IVPB IV ONE ×2 (00:59→01:38)
[2024-08-08] MEDS: ROCEPHIN 1 GM / 100 ML NaCl 1 GM/100 ML IVPB IV ONE ×2 (01:00→01:39)
--- NOTE | 2024-08-08 01:51 | XRAY ---
CLINICAL HISTORY: sob COMPARISON: 01/18/2024. TECHNIQUE: An X-ray image of the chest is obtained using an AP projection. FINDINGS: Pulmonary Parenchyma: Perihilar patchy airspace opacities bilaterally, more in the right mid to lower zone. Blunting of bilateral costophrenic angles representing underlying pleural effusion, more on the right side. Heart and Mediastinum: The heart size cannot be commented on in this projection. The mediastinal widening can be projectional. No hilar or mediastinal lymphadenopathy. Bony Thorax: Degenerative changes in the visualized skeleton. Soft Tissues: Soft tissues overlying the chest wall are unremarkable. Overlying chest leads are seen. IMPRESSION: 1. Perihilar patchy airspace opacities bilaterally, more in the right mid to lower zone. Imaging appearances might be suggestive of pulmonary edema and/or infective/inflammatory changes. Interval new. Clinical correlation is suggested. 2. Blunting of bilateral costophrenic angles representing underlying pleural effusions, more on the right side (new). Electronically Signed by: Daniel Fatima MD. (08/08/2024 01:45:42 EDT)
[2024-08-08] MEDS ORDERED: ZITHROMAX IV IV ONE (02:11)
[2024-08-08] MEDS ORDERED: Sodium Chloride 0.9% 250 ML 250 ML IV ONE (02:12)
[2024-08-08] MEDS: ZITHROMAX IV*** 500 MG in Sodium Chloride 0.9% 250 ML 250 ML IV STA (02:16)
[2024-08-08] MEDS ORDERED: Zofran 4 MG/2 ML VIAL IV PRN (03:19)
[2024-08-08] MEDS ORDERED: Fosamax 70 MG PO PRN (03:30)
[2024-08-08] MEDS ORDERED: NON-FORMULARY ITEM (Dulaglutide [Trulicity] 0.75 MG/0.5 ML Pen.Injctr) IN SCH (03:30)
[2024-08-08 04:18] LABS: BASOPHIL % 0.1 % (0.1-1.2); Basophil (Absolute #) 0.01 x10^3/uL (0.01-0.08); Eosinophil % 0.1 % (0.7-5.8); Eosinophil (Absolute #) 0.01 x10^3/uL (0.04-0.36); Hematocrit 34.3 % (34.1-44.9); Hemoglobin 10.6 g/dL (11.2-15.7); IMMATURE GRAN # 0.05 x10^3u/L (0.001-0.031); IMMATURE GRAN % 0.6 % (0.001-0.429); Lymphocyte (Absolute #) 0.65 x10^3/uL (1.18-3.74); Lymphocytes % 8.1 % (19.3-51.7); Mean Cell Volume 108.9 fL (79.4-94.8); Mean Corpuscular Hemoglobin 33.7 pg (25.6-32.2); Mean Corpuscular Hgb Concent. 30.9 g/dL (32.2-35.5); Mean Platelet Volume 9.3 fL (9.4-12.3); Monocyte (Absolute #) 0.26 x10^3/uL (0.24-0.86); Monocytes % 3.3 % (4.7-12.5); Neutrophil % 87.8 % (34.0-71.1); Platelet Count 195 x10^3/uL (182-369); Red Blood Count 3.15 x10^6/uL (3.93-5.22); Red Cell Distribution Width 14.9 % (11.7-14.4)
--- NOTE | 2024-08-08 04:22 | PCM.HP ---
History of Present Illness - Chief Complaint Chief Complaint: Respiratory distress, pneumonia Date: 08/08/24 History of Present Illness: is a 83 year old female who had been in hospice (for debility and respiratory decline following operative intervention on her back), and a history of COPD CHF, and chronic atrial fibrillation on Eliquis, who now presented to the ED for evaluation of worsening respiratory failure. Upon EMS arrival patient was hypoxic and hypotensive (initially required a norepinephrine infusion). Patient normally requires oxygen 2 to 3 L nasal cannula, and the patient's family had observed that oxygenation was decreasing so they increased the supplemental oxygen to 5 L. Upon arrival to the ED, the patient's blood pressure was 155 systolic off of the norepinephrine drip. The patient was placed on BIPAP and then was saturating 100% on BiPAP. No report of trauma. No reports of falls or injuries. HPI limited due to patient's mental status. The patient's was at bedside for my evaluation. . - Review of Systems All Other Systems: Unable due to condition Medications & Allergies Home Medications: Home Medication List Acetaminophen [Tylenol] 325 mg PO DAILY PRN PRN 01/15/24 [History Confirmed 08/08/24] Alendronate Sodium 70 mg [Fosamax 70 MG] 70 mg PO WEEKLY 01/15/24 [History Confirmed 08/08/24] Amiodarone HCl 200 mg [Cordarone 200 MG] 200 mg PO .EVERY OTHER DAY 01/15/24 [History Confirmed 08/08/24] Apixaban [Eliquis 2.5 mg Tablet] 2.5 mg PO BID 01/15/24 [History Confirmed 08/08/24] Aripiprazole [Abilify] 2 mg PO DAILY 01/15/24 [History Confirmed 08/08/24] Calcium Carb, Citrate/Vit D3 [Calcium + D3 ER Tablet] 1 tab PO DAILY 01/15/24 [History Confirmed 08/08/24] Dulaglutide [Trulicity] 0.75 mg IN WEEKLY 01/15/24 [History Confirmed 08/08/24] Duloxetine HCl 60 mg PO HS 01/15/24 [History Confirmed 08/08/24] Fluticasone/Vilanterol [Breo Ellipta 100-25 Mcg Inhalr] 1 inhaler IH DAILY 01/15/24 [History Confirmed 08/08/24] Furosemide 20 mg [Lasix 20 mg] 20 mg PO BID 01/15/24 [History Confirmed 08/08/24] Gabapentin 400 mg PO DAILY 01/15/24 [History Confirmed 08/08/24] Levothyroxine Sodium 100 Mcg [Synthroid 100 Mcg] 100 mcg PO DAILY 01/15/24 [History Confirmed 08/08/24] Losartan Potassium 50 mg PO DAILY 01/15/24 [History Confirmed 08/08/24] Meloxicam 7.5 mg PO DAILY 01/15/24 [History Confirmed 08/08/24] Metoprolol Succinate 50 mg PO BID 01/15/24 [History Confirmed 08/08/24] Multivitamin/Iron/Folic Acid [Centrum Adults Tablet] 1 tab PO DAILY 01/15/24 [History Confirmed 08/08/24] PANTOPRAZOLE 40 mg Tablet [Protonix 40MG Tablet] 40 mg PO DAILY 01/15/24 [History Confirmed 08/08/24] Pravastatin Sodium 20 mg PO DAILY 01/15/24 [History Confirmed 08/08/24] dilTIAZem HCL [Cardizem Cd] 300 mg PO DAILY 01/15/24 [History Confirmed 08/08/24] Potassium Chloride 10 meq PO BID 08/08/24 [History Confirmed 08/08/24] Allergies/Adverse Reactions: Allergies Allergy/AdvReac Type Severity Reaction Status Date / Time No Known Drug Allergies Allergy Verified 01/15/24 01:34 - Past Medical History Past Medical History: Yes Neurological History: Peripheral Neuropathy ENT History: No Pertinent History Cardiac History: Arrhythmia, High Cholesterol, Hypertension Respiratory History: No Pertinent History, CHF Endocrine Medical History: Diabetes Type II Musculoskelatal History: No Pertinent History GI Medical History: No Pertinent History History: No Pertinent History Pyscho-Social History: Anxiety Reproductive Disorders: No Pertinent History Comment: a fib, history of left ankle fracture that did not require surgery - Past Surgical History Past Surgical History: Yes Neuro Surgical History: No Pertinent History Cardiac History: No Pertinent History Respiratory Surgery: No Pertinent History GI Surgical History: Cholecystectomy Genitourinary Surgical Hx: No Pertinent History Musculskeletal Surgical Hx: Orthopedic Surgery Female Surgical History: Hysterectomy Other Surgical History: 2 left ankle surgeries, rupa in left leg, back surgery X 2, lumpectomy, 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) Significant Family History: no pertinent family hx - Social History Smoking Status: Never smoker Exposure to second hand smoke: No Alcohol: None Drug Use: none - Social Determinants of Health Will the patient participate in the screening: Yes Do you worry about a steady place to live?: No Do you have any problems with any of the following?: No known problems In the past 12 months,have you had to go without utilities?: No Have you or anyone in your house had to go without enough: No Transportation Issues: No Has anyone in your support network made you feel unsafe?: No Does the patient want assistance with any of the above?: No - Physical Exam Vital Signs: Vital Signs - 24 hr Temp Pulse Resp BP BP Pulse Ox 08/08/24 03:17 96.4 F 73 22 121/82 97 08/08/24 03:05 66 20 95 08/08/24 02:51 120/63 08/08/24 02:41 95.4 F 85 136/57 99 08/08/24 02:31 95.4 F 69 152/80 99 08/08/24 02:20 95.4 F 61 140/100 99 08/08/24 02:10 95.4 F 66 138/73 99 08/08/24 02:01 95.4 F 61 18 129/72 98 08/08/24 01:53 100 08/08/24 01:50 95.4 F 135/66 08/08/24 01:41 95.4 F 141/96 08/08/24 01:31 95.4 F 136/66 99 08/08/24 01:21 95.5 F 142/71 08/08/24 01:12 95.5 F 139/76 97 08/08/24 01:01 95.5 F 64 18 128/70 98 08/08/24 00:56 95.7 F 72 18 171/86 100 08/08/24 00:50 95.5 F 137/70 99 08/08/24 00:41 95.7 F 64 136/90 08/08/24 00:31 95.7 F 58 L 140/70 99 08/08/24 00:21 95.7 F 61 155/74 08/08/24 00:11 95.7 F 61 171/85 98 08/08/24 00:04 99 08/08/24 00:01 95.7 F 72 18 152/84 99 08/08/24 00:00 95.7 F 77 96 08/07/24 23:56 73 L 08/07/24 23:31 150/81 08/07/24 23:23 74 18 171/86 100 General Appearance: no apparent distress, lethargy Neurologic 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04) x10^3/uL RBC 3.22 L (3.93-5.22) x10^6/uL Hgb 10.8 L (11.2-15.7) g/dL Hct 35.1 (34.1-44.9) % MCV 109.0 H (79.4-94.8) fL MCH 33.5 H (25.6-32.2) pg MCHC 30.8 L (32.2-35.5) g/dL RDW 14.6 H (11.7-14.4) % Plt Count 210 (182-369) x10^3/uL MPV 9.2 L (9.4-12.3) fL Gran % 68.0 (34.0-71.1) % Immature Gran % (Auto) 0.4 (0.001-0.429) % Nucleat RBC Rel Count 0.0 (0.00-0.2) % Eos # (Auto) 0.15 (0.04-0.36) x10^3/uL Immature Gran # (Auto) 0.03 (0.001-0.031) x10^3u/L Absolute Lymphs (auto) 1.06 L (1.18-3.74) x10^3/uL Absolute Monos (auto) 1.13 H (0.24-0.86) x10^3/uL Absolute Nucleated RBC 0.00 (0.00-0.012) x10^3u/L Lymphocytes % 14.2 L (19.3-51.7) % Monocytes % 15.1 H (4.7-12.5) % Eosinophils % 2.0 (0.7-5.8) % Basophils % 0.3 (0.1-1.2) % Absolute Granulocytes 5.07 (1.56-6.13) x10^3/uL Basophils # 0.02 (0.01-0.08) x10^3/uL Puncture Site LEFT RADIAL pCO2 60 H* (35-45) mmHg pO2 201 H* (75-100) mmHg Base Excess 5.2 H (-2.0-2.0) O2 Saturation 97.7 (94-100) g/dF ABG pH 7.34 L (7.35-7.45) ABG HCO3 32.4 H* (22-28) ABG O2 Sat (Measured) 100.0 (95-100) % Loyd Test YES A-a Gradient 437 a/A Ratio 0.32 Hemoglobin 11.0 Carboxyhemoglobin 1.7 (0.0-6.9) % THgb Methemoglobin 0.6 L (1.4-1.5) % Potassium 4.2 (3.5-5.1) Temperature 37.0 C POC O2 Flow Rate 100 % Vent Mode bipap Vent Rate 18 /MIN Inspiratory BiPAP 20 Expiratory BiPAP 8 Sodium (135-145) mmol/L Chloride (98-107) mmol/L Carbon Dioxide (22-30) mmol/L Anion Gap (5-15) MEQ/L BUN (7-17) mg/dL Creatinine (0.52-1.04) mg/dL Estimated GFR ML/MIN Glucose (74-106) mg/dL Calcium (8.4-10.2) mg/dL Magnesium (1.6-2.3) mg/dL Total Bilirubin (0.2-1.3) mg/dL AST (14-36) U/L ALT (0-35) U/L Alkaline Phosphatase (38-126) U/L Troponin I (0.000-0.033) ng/mL NT-Pro-B Natriuret Pep (<300) pg/mL Serum Total Protein (6.3-8.2) g/dL Albumin (3.5-5.0) g/dL Urine Color Dark Yellow A (Yellow) Urine Appearance Turbid A (Clear) Urine pH 7.5 (4.6-8.0) Ur Specific [place] 1.020 (1.005-1.030) Urine Protein 100 A (Negative) Urine Glucose (UA) Negative (Negative) mg/dL Urine Ketones Negative (Negative) Urine Blood Moderate A (Negative) Urine Nitrite Positive A (Negative) Urine Bilirubin Negative (Negative) Urine Urobilinogen 1.0 A (0.2) mg/dL Ur Leukocyte Esterase Large A (Negative) U Hyaline Cast (Auto) NONE SEEN (0-2) /LPF Urine Microscopic RBC >100 A (0-5) /HPF Urine Microscopic WBC >100 A (0-5) /HPF Ur Epithelial Cells None Seen (None Seen) /HPF Urine Bacteria Many A (None Seen) /HPF Urine Culture Reflexed YES (NO) Influenza Type A Ag (NEGATIVE) Influenza Type B Ag (NEGATIVE) RSV (PCR) (NEGATIVE) SARS-CoV-2 (PCR) (NEGATIVE) 08/07/24 08/07/24 08/07/24 Range/Units 23:59 23:59 23:59 WBC (3.98-10.04) x10^3/uL RBC (3.93-5.22) x10^6/uL Hgb (11.2-15.7) g/dL Hct (34.1-44.9) % MCV (79.4-94.8) fL MCH (25.6-32.2) pg MCHC (32.2-35.5) g/dL RDW (11.7-14.4) % Plt Count (182-369) x10^3/uL MPV (9.4-12.3) fL Gran % (34.0-71.1) % Immature Gran % (Auto) (0.001-0.429) % Nucleat RBC Rel Count (0.00-0.2) % Eos # (Auto) (0.04-0.36) x10^3/uL Immature Gran # (Auto) (0.001-0.031) x10^3u/L Absolute Lymphs (auto) (1.18-3.74) x10^3/uL Absolute Monos (auto) (0.24-0.86) x10^3/uL Absolute Nucleated RBC (0.00-0.012) x10^3u/L Lymphocytes % (19.3-51.7) % Monocytes % (4.7-12.5) % Eosinophils % (0.7-5.8) % Basophils % (0.1-1.2) % Absolute Granulocytes (1.56-6.13) x10^3/uL Basophils # (0.01-0.08) x10^3/uL Puncture Site pCO2 (35-45) mmHg pO2 (75-100) mmHg Base Excess (-2.0-2.0) O2 Saturation (94-100) g/dF ABG pH (7.35-7.45) ABG HCO3 (22-28) ABG O2 Sat (Measured) (95-100) % Loyd Test A-a Gradient a/A Ratio Hemoglobin Carboxyhemoglobin (0.0-6.9) % THgb Methemoglobin (1.4-1.5) % Potassium 4.0 (3.5-5.1) Temperature C POC O2 Flow Rate % Vent Mode Vent Rate /MIN Inspiratory BiPAP Expiratory BiPAP Sodium 139 (135-145) mmol/L Chloride 96 L (98-107) mmol/L Carbon Dioxide 33 H (22-30) mmol/L Anion Gap 13.6 (5-15) MEQ/L BUN 18 H (7-17) mg/dL Creatinine 0.52 (0.52-1.04) mg/dL Estimated GFR 92.1 ML/MIN Glucose 96 (74-106) mg/dL Calcium 8.9 (8.4-10.2) mg/dL Magnesium 2.0 (1.6-2.3) mg/dL Total Bilirubin 0.90 (0.2-1.3) mg/dL AST 38 H (14-36) U/L ALT 26 (0-35) U/L Alkaline Phosphatase 100 (38-126) U/L Troponin I < 0.012 (0.000-0.033) ng/mL NT-Pro-B Natriuret Pep 829 (<300) pg/mL Serum Total Protein 7.9 (6.3-8.2) g/dL Albumin 4.3 (3.5-5.0) g/dL Urine Color (Yellow) Urine Appearance (Clear) Urine pH (4.6-8.0) Ur Specific [place] (1.005-1.030) Urine Protein (Negative) Urine Glucose (UA) (Negative) mg/dL Urine Ketones (Negative) Urine Blood (Negative) Urine Nitrite (Negative) Urine Bilirubin (Negative) Urine Urobilinogen (0.2) mg/dL Ur Leukocyte Esterase (Negative) U Hyaline Cast (Auto) (0-2) /LPF Urine Microscopic RBC (0-5) /HPF Urine Microscopic WBC (0-5) /HPF Ur Epithelial Cells (None Seen) /HPF Urine Bacteria (None Seen) /HPF Urine Culture Reflexed (NO) Influenza Type A Ag NEGATIVE (NEGATIVE) Influenza Type B Ag NEGATIVE (NEGATIVE) RSV (PCR) NEGATIVE (NEGATIVE) SARS-CoV-2 (PCR) NEGATIVE (NEGATIVE) - Radiology Impressions Radiology Exams & Impressions: Radiology Procedures Category Date Time Status CHEST 1 VIEW (PORTABLE) Stat Exams 08/07/24 23:22 Completed HEAD WITHOUT CONTRAST [CT] Stat Exams 08/07/24 23:29 Completed - Other Procedures and Tests Respiratory Therapy 08/07/24 23:34 BiPap/CPAP STAT 08/08/24 03:25 Respiratory Therapy Assessment DAILY 08/08/24 03:28 Respiratory MDI BID Assessment/Plan (1) Acute respiratory failure Current Visit: Yes Status: Acute Assessment & Plan: Placed on BIPAP. Repeat ABG in AM. Wean O2 as tolerated. Treat underlying pneumonia. Nebs. Code(s): J96.00 - ACUTE RESPIRATORY FAILURE, UNSP W HYPOXIA OR HYPERCAPNIA (2) UTI (urinary tract infection) Current Visit: Yes Status: Acute Assessment & Plan: IV antibiotics. Follow cultures. Code(s): N39.0 - URINARY TRACT INFECTION, SITE NOT SPECIFIED (3) Pneumonia Current Visit: Yes Status: Acute Assessment & Plan: IV antibiotics. Code(s): J18.9 - PNEUMONIA, UNSPECIFIED ORGANISM (4) Type 2 diabetes mellitus Current Visit: No Status: Chronic Assessment & Plan: monitor sugars on ISS. Telemedicine Encounter - Telemedicine Encounter Telemedicine Encounter: "The entirety of this encounter was performed via Telemedicine" This visit was performed using real-time audio and video connection between my location and thepatients locationwith the assistance of a surrogateat the patients location. Written or verbal consent was obtained from the patient/guardian to perform this visit usingsynchrJuicyCanvastelemedicine technology. Any patient questions regarding the telemedicine interaction were answered. Please note that this admission required 48 minutes to complete.
[2024-08-08 04:38] LABS: ANION GAP 13.4 MEQ/L (5-15); Calcium 8.4 mg/dL (8.4-10.2); Creatinine 1 0.48 mg/dL (0.52-1.04); EST GLOMERULAR FILTRATION RATE 93.9 ML/MIN; Potassium 4.4 mmol/L (3.5-5.1)
[2024-08-08] MEDS: DUONEB 0.5-3 MG/3 ml Neb IH SCH (06:28)
[2024-08-08] MEDS: Advair Hfa 115/21 Common canister IH SCH (06:34)
[2024-08-08 08:00] LABS: A-aADO2 203; ABG HEMOGLOBIN 10.9; ABG POTASSIUM 4.6 (3.5-5.1); ABG SITE RIGHT RADIAL; ALLEN TEST OK? NO; ARTERIAL BLD GAS O2 SATURATION 97.8 % (95-100); ARTERIAL BLOOD GAS BASE EXCESS 3.5 (-2.0-2.0); ARTERIAL BLOOD GAS FIO2 50 %; ARTERIAL BLOOD GAS PCO2 58 mmHg (35-45); ARTERIAL BLOOD GAS PO2 81 mmHg (75-100); ARTERIAL BLOOD GAS VENT MODE BiPAP; ARTERIAL BLOOD GAS pH 7.33 (7.35-7.45); BIPAP(E) 6; BIPAP(I) 20; CARBOXYHEMOGLOBIN 1.7 % THgb (0.0-6.9); HCO3- 30.6 (22-28); HGB O2 SAT 95.7 g/dF (94-100); Methhemoglobin 0.4 % (1.4-1.5); paO2 pAO1 0.29
[2024-08-08] MEDS ORDERED: MEDICATION INTERVENTION MC SCH (08:30)
[2024-08-08] MEDS ORDERED: NON-FORMULARY ITEM (Fluticasone/Vilanterol [Breo Ellipta 100-25 Mcg Inhalr] 1 EACH Blst.W. IH SCH (10:00)
[2024-08-08] MEDS: Cozaar 50 MG PO SCH (10:59)
[2024-08-08] MEDS: MELOXICAM PO SCH (10:59)
[2024-08-08] MEDS: TYLENOL 325 MG PO PRN (10:59)
[2024-08-08] MEDS: Abilify 10 MG PO SCH (10:59)
[2024-08-08] MEDS: SYNTHROID 100 MCG PO SCH (10:59)
[2024-08-08] MEDS: Klor Con PO SCH (10:59)
[2024-08-08] MEDS: Protonix 40MG Tablet PO SCH (10:59)
[2024-08-08] MEDS: Toprol Xl 50 MG PO SCH (10:59)
[2024-08-08] MEDS: THERAGRAN MULTIVITAMIN PO SCH (10:59)
[2024-08-08] MEDS: Neurontin PO SCH (10:59)
[2024-08-08] MEDS: Zocor 10MG PO SCH (10:59)
[2024-08-08] MEDS: Cordarone 200 MG PO SCH (11:00)
[2024-08-08] MEDS: ELIQUIS 2.5 MG TABLET PO SCH (11:00)
[2024-08-08] MEDS: Lasix 40 MG/4 ML IV SCH (11:00)
[2024-08-08] MEDS: Cardizem CD PO SCH (11:00)
[2024-08-08] MEDS: Acidophilus TABLET PO SCH (11:00)
[2024-08-08] MEDS: Xopenex 1.25 MG/0.5 ML UD NEBULE IH SCH (12:45)
[2024-08-08] MEDS: Sodium Chloride 3 ML UD NEBULES IH SCH (12:45)
[2024-08-08] MEDS: solu-MEDROL 40 MG, Sterile H2O 10 ml 1 ML IV SCH (15:29)
[2024-08-08] MEDS: Calcium 500MG W/Vit D Tablet PO SCH (15:30)
[2024-08-08] MEDS: ZITHROMAX IV*** 500 MG in Sodium Chloride 0.9% 250 ML 250 ML IV SCH (21:27)
[2024-08-08] MEDS: Cymbalta 30 MG Capsule PO SCH (21:28)
[2024-08-08] MEDS: ROCEPHIN 1 GM / 100 ML NaCl 1 GM/100 ML IVPB IV SCH (21:28)
[2024-08-08] MEDS: Sodium Chloride 0.9% 1000 ML 1,000 ML IV SCH (21:29)
[2024-08-08] MEDS: HUMALOG SQ PRN (21:54)
[2024-08-08] MEDS: MORPHINE SULFATE 2 MG INJ IV PRN (23:09)
[2024-08-09 04:15] LABS: Hematocrit 31.6 % (34.1-44.9); Hemoglobin 9.8 g/dL (11.2-15.7); Mean Cell Volume 107.5 fL (79.4-94.8); Mean Corpuscular Hemoglobin 33.3 pg (25.6-32.2); Mean Platelet Volume 9.4 fL (9.4-12.3); Platelet Count 212 x10^3/uL (182-369); Red Blood Count 2.94 x10^6/uL (3.93-5.22); Red Cell Distribution Width 15.2 % (11.7-14.4); White Blood Count 13.9 x10^3/uL (3.98-10.04)
[2024-08-09 04:28] LABS: A-aADO2 164; ABG HEMOGLOBIN 10.5; ABG POTASSIUM 4.5 (3.5-5.1); ABG SITE LEFT RADIAL; ALLEN TEST OK? YES; ARTERIAL BLD GAS O2 SATURATION 98.4 % (95-100); ARTERIAL BLOOD GAS BASE EXCESS 5.6 (-2.0-2.0); ARTERIAL BLOOD GAS FIO2 40 %; ARTERIAL BLOOD GAS PCO2 33 mmHg (35-45); ARTERIAL BLOOD GAS PO2 80 mmHg (75-100); ARTERIAL BLOOD GAS pH 7.54 (7.35-7.45); CARBOXYHEMOGLOBIN 6.3 % THgb (0.0-6.9); HCO3- 28.2 (22-28); Methhemoglobin 0.3 % (1.4-1.5); paO2 pAO1 0.33
[2024-08-09 04:28] LABS: ALBUMIN 3.9 g/dL (3.5-5.0); ANION GAP 14.5 MEQ/L (5-15); BILIRUBIN,TOTAL 0.5 mg/dL (0.2-1.3); Calcium 8.8 mg/dL (8.4-10.2); Creatinine 1 0.62 mg/dL (0.52-1.04); EST GLOMERULAR FILTRATION RATE 88.3 ML/MIN; Potassium 4.4 mmol/L (3.5-5.1); Total Protein 7.2 g/dL (6.3-8.2)
--- NOTE | 2024-08-09 09:46 | PCM.NOTE ---
Date and Time: 08/09/24 0936 Subjective Assessment: 08/09/24 Mrs. Williamson is an 83-year-old female with a history of COPD, CHF, chronic atrial fibrillation on Eliquis, and debility following back surgery. She had been receiving hospice care for respiratory decline and general debility but presented to the ED on 08/08/24 due to worsening respiratory failure. Upon EMS arrival, she was hypoxic and hypotensive, initially requiring a norepinephrine infusion. Her usual oxygen requirement is 2 to 3 liters via nasal cannula, but her family noted a decline in her oxygenation and increased her supplemental oxygen to 5 liters. Upon arrival at the ED, her blood pressure was 155 systolic off the norepinephrine drip. She was placed on BiPAP and achieved 100% oxygen saturation. There were no reports of trauma, falls, or injuries. Yesterday, she remained on BiPAP throughout the day. She was started on Lasix 40 mg IV BID for bilateral pleural effusions and was given azithromycin and ceftriaxone, along with steroids, Xoponex, and Advair for pneumonia. Her had previously rescinded her DNR order and requested that she be a full code, which was discussed thoroughly with him. Pulmonology was consulted, but no changes were made to her treatment plan. A urine culture and sputum culture are pending, and she continues antibiotics for a suspected UTI. The IV in her left hand infiltrated last night, causing swelling in her hand and arm, which is currently elevated on a pillow. Her white blood cell count has increased, likely due to steroids, which were started yesterday. An ABG showed respiratory alkalosis. The Srinivasan catheter will be discontinued, and a PureWick system will be placed. Hospice will be coming to speak with the patient and her about goals of care. The patient denies chest pain, abdominal pain, nausea, vomiting, or diarrhea. . - Review of Systems Constitutional: Weakness, No Fever, No Chills Eyes: No Symptoms Ears, Nose, & Throat: No Symptoms Respiratory: Short Of Breath, No Cough Cardiac: No Chest Pain, No Edema, No Syncope Abdominal/Gastrointestinal: No Abdominal Pain, No Nausea, No Vomiting, No Diarrhea Genitourinary Symptoms: Dysuria, Incontinence Musculoskeletal: No Back Pain, No Neck Pain Skin: No Rash Neurological: No Dizziness, No Focal Weakness, No Sensory Changes Psychological: No Symptoms Endocrine: No Symptoms Hematologic/Lymphatic: No Symptoms Immunological/Allergic: No Symptoms Objective Exam General Appearance: no apparent distress, alert, obese Neurologic Exam: alert, oriented x 3, cooperative, normal mood/affect, nml cerebellar function, sensation nml, motor weakness, No motor deficits Skin Exam: normal color, warm, dry Eye Exam: PERRL, EOMI, eyes nml inspection Ears, Nose, Throat Exam: normal ENT inspection, pharynx normal, moist mucous membranes Neck Exam: normal inspection, non-tender, supple, full range of motion Respiratory Exam: wheezing, No respiratory distress Cardiovascular Exam: regular rate/rhythm, normal heart sounds Gastrointestinal/Abdomen Exam: soft, No tenderness, No mass Extremity Exam: normal inspection, normal range of motion, tenderness (Edema and bruising of left hand from infiltrated IV last night- Left arm swollen) Back Exam: normal inspection, normal range of motion, No CVA tenderness, No vertebral tenderness Pelvic Exam: deferred Rectal Exam: deferred Objective Data Vital Signs: Vital Signs - 24 hr Temp Pulse Resp BP Pulse Ox 08/09/24 07:51 90 18 90 L 08/09/24 07:30 97.4 F 94 H 18 129/73 90 L 08/09/24 03:58 97.1 F 93 H 18 134/72 92 L 08/09/24 01:39 75 18 92 L 08/08/24 23:38 97.8 F 71 18 129/66 94 L 08/08/24 18:51 59 L 18 91 L 08/08/24 18:49 96.9 F 68 18 121/68 92 L 08/08/24 16:00 97.4 F 65 25 H 123/68 93 L 08/08/24 12:45 83 24 92 L 08/08/24 12:00 98.0 F 87 19 131/86 94 L 08/08/24 10:00 93 L Pain Assessment - Last Documented Pain Intensity 4 Pain Scale Used 0-10 Pain Scale Intake and Output: Intake & Output 08/06/24 08/07/24 08/08/24 08/09/24 11:59 11:59 11:59 11:59 Intake Total 120 1005 Output Total 850 1300 Balance -730 -295 Weight 101.1 kg Lab Results: Lab Results-Last 24 Hours 08/08/24 08/09/24 08/09/24 Range/Units 21:49 04:00 04:14 WBC 13.9 H (3.98-10.04) x10^3/uL RBC 2.94 L (3.93-5.22) x10^6/uL Hgb 9.8 L (11.2-15.7) g/dL Hct 31.6 L (34.1-44.9) % MCV 107.5 H (79.4-94.8) fL MCH 33.3 H (25.6-32.2) pg MCHC 31.0 L (32.2-35.5) g/dL RDW 15.2 H (11.7-14.4) % Plt Count 212 (182-369) x10^3/uL MPV 9.4 (9.4-12.3) fL Puncture Site LEFT RADIAL pCO2 33 L (35-45) mmHg pO2 80 (75-100) mmHg Base Excess 5.6 H (-2.0-2.0) O2 Saturation 92.0 L (94-100) g/dF ABG pH 7.54 H (7.35-7.45) ABG HCO3 28.2 H (22-28) ABG O2 Sat (Measured) 98.4 (95-100) % Loyd Test YES A-a Gradient 164 a/A Ratio 0.33 Hemoglobin 10.5 Carboxyhemoglobin 6.3 (0.0-6.9) % THgb Methemoglobin 0.3 L (1.4-1.5) % Potassium 4.5 (3.5-5.1) Temperature 37.0 C POC O2 Flow Rate 40 % Sodium (135-145) mmol/L Chloride (98-107) mmol/L Carbon Dioxide (22-30) mmol/L Anion Gap (5-15) MEQ/L BUN (7-17) mg/dL Creatinine (0.52-1.04) mg/dL Estimated GFR ML/MIN Glucose (74-106) mg/dL POC Glucometer 201 H (74 to 106) mg/dL Calcium (8.4-10.2) mg/dL Total Bilirubin (0.2-1.3) mg/dL AST (14-36) U/L ALT (0-35) U/L Alkaline Phosphatase (38-126) U/L Serum Total Protein (6.3-8.2) g/dL Albumin (3.5-5.0) g/dL 08/09/24 08/09/24 Range/Units 04:14 07:46 WBC (3.98-10.04) x10^3/uL RBC (3.93-5.22) x10^6/uL Hgb (11.2-15.7) g/dL Hct (34.1-44.9) % MCV (79.4-94.8) fL MCH (25.6-32.2) pg MCHC (32.2-35.5) g/dL RDW (11.7-14.4) % Plt Count (182-369) x10^3/uL MPV (9.4-12.3) fL Puncture Site pCO2 (35-45) mmHg pO2 (75-100) mmHg Base Excess (-2.0-2.0) O2 Saturation (94-100) g/dF ABG pH (7.35-7.45) ABG HCO3 (22-28) ABG O2 Sat (Measured) (95-100) % Loyd Test A-a Gradient a/A Ratio Hemoglobin Carboxyhemoglobin (0.0-6.9) % THgb Methemoglobin (1.4-1.5) % Potassium 4.4 (3.5-5.1) Temperature C POC O2 Flow Rate % Sodium 135 (135-145) mmol/L Chloride 96 L (98-107) mmol/L Carbon Dioxide 28 (22-30) mmol/L Anion Gap 14.5 (5-15) MEQ/L BUN 21 H (7-17) mg/dL Creatinine 0.62 (0.52-1.04) mg/dL Estimated GFR 88.3 ML/MIN Glucose 160 H (74-106) mg/dL POC Glucometer 160 H (74 to 106) mg/dL Calcium 8.8 (8.4-10.2) mg/dL Total Bilirubin 0.50 (0.2-1.3) mg/dL AST 37 H (14-36) U/L ALT 27 (0-35) U/L Alkaline Phosphatase 90 (38-126) U/L Serum Total Protein 7.2 (6.3-8.2) g/dL Albumin 3.9 (3.5-5.0) g/dL Radiology Exams: Radiology Procedures Category Date Time Status CHEST 1 VIEW (PORTABLE) Stat Exams 08/07/24 23:22 Completed HEAD WITHOUT CONTRAST [CT] Stat Exams 08/07/24 23:29 Completed Multi-Disciplinary Progress Notes: Multi-Disciplinary Progress Notes 08/08/24 11:45 (created 08/08/24 14:29) Case Management Note by Veronica Easton S/W LAMBERT KAY WITH [facility]- SHE IS AWARE PATIENT HERE OBS. SHE WAS UPDATED ON PATIENT'S CURRENT STATUS, THAT SHE IS WAITING ON A PULMO CONSULT BUT ALSO THAT PATIENT WANTS ALL THE TREATMENT INDICATED AND IS A FULL CODE. SHE REPORTS LONG PATIENT IS IN OBS SHE WILL STAY A [facility] PATIENT BUT IF SHE BECOMES INPT THEY WILL HAVE TO REVOCATE. Initialized on 08/08/24 14:29 - END OF NOTE Assessment/Plan (1) Pneumonia Current Visit: Yes Status: Acute Assessment & Plan: - CXR: IMPRESSION: 1. Perihilar patchy airspace opacities bilaterally, more in the right mid to lower zone. Imaging appearances might be suggestive of pulmonary edema and/or infective/inflammatory changes. Interval new. Clinical correlation is suggested. 2. Blunting of bilateral costophrenic angles representing underlying pleural effusions, more on the right side (new). -Azithromycin and ceftriaxone, steroids, Xoponex, and Advair - Oxymizer 5l 94%- baseline 2-3 liters - Was on Biapap yesterday - ABG shows Resp alkalosis - Sputum culture pending Code(s): J18.9 - PNEUMONIA, UNSPECIFIED ORGANISM (2) Acute respiratory failure Current Visit: Yes Status: Acute Assessment & Plan: - Pulm consult - ABG reviewed - 2:2 pneumonia & CHF - See Pneumonia plan Code(s): J96.00 - ACUTE RESPIRATORY FAILURE, UNSP W HYPOXIA OR HYPERCAPNIA (3) UTI (urinary tract infection) Current Visit: Yes Status: Acute Assessment & Plan: - IV antibiotic - UC pending - D/C Srinivasan - Place purewick Code(s): N39.0 - URINARY TRACT INFECTION, SITE NOT SPECIFIED (4) CHF (congestive heart failure) Current Visit: No Status: Acute Assessment & Plan: - Acute on chronic - Lasix increased to 40 IV BID - BNP 829 - Echo 01/16/24 - EF 58% - CXR reviewed - Continue home meds - Edema improved today, yesterday has 3+ pitting edema of BLLE Code(s): I50.9 - HEART FAILURE, UNSPECIFIED (5) Pleural effusion due to congestive heart failure Current Visit: Yes Status: Acute Assessment & Plan: - As seen on CXR - LASIX 40 BID IV - O2 oxymizer 5LNC 94% - See CHF plan Code(s): I50.9 - HEART FAILURE, UNSPECIFIED (6) IV infiltrate Current Visit: Yes Status: Acute Assessment & Plan: - IV of left hand infiltrated last night- left arm and hand swollen and bruised - Left arm elevated on pillow to decrease edema Code(s): T80.1XXA - VASCULAR COMP FOL INFUSN, TRANFS AND THERAPUTC INJECT, INIT (7) Afib Current Visit: No Status: Chronic Qualifiers: Atrial fibrillation type: longstanding persistent Qualified Code(s): I48.11 - Longstanding persistent atrial fibrillation Assessment & Plan: - Tele - Eliquis - Continue cardizem - Metoprolol Code(s): I48.91 - UNSPECIFIED ATRIAL FIBRILLATION (8) Hypothyroid Current Visit: No Status: Chronic Assessment & Plan: - Continue synthroid Code(s): E03.9 - HYPOTHYROIDISM, UNSPECIFIED (9) Type 2 diabetes mellitus Current Visit: No Status: Chronic Qualifiers: Diabetes mellitus termite control service representative insulin use: with termite control service representative use Diabetes mellitus complication status: with circulatory complication Diabetes mellitus complication detail: with other circulatory complications Qualified Code(s): E11.59 - Type 2 diabetes mellitus with other circulatory complications; Z79.4 - termite control technician (current) use of insulin Assessment & Plan: - Accuchecks Q4 as pt is not eating well- consider changing to AC/HS - Humalog S/S - Steroids may increase glucose- monitor - A1C pending (10) Weakness Current Visit: No Status: Chronic Assessment & Plan: - Chronic weakness - PT/OT - PT wants to be full code and get stronger- may need rehab placement - Hospice to discuss goals of care today VTE: Eliquis PPI: Protonix Next of KIN: Code status: Full D/C plan: 2-3 days Code(s): R53.1 - WEAKNESS
[2024-08-09] MEDS ORDERED: HUMALOG SQ PRN (09:53)
--- NOTE | 2024-08-09 12:38 | CONS ---
REASON FOR CONSULTATION: Respiratory failure and shortness of breath. HISTORY: Obtained from reviewing current records and discussing with patient and family. The patient is an 83-year-old woman who was on hospice with [facility] at home. The patient apparently got progressively more short of breath over the past couple of days with altered mental status leading to an ER visit. She was noted to have hypercapnic respiratory failure treated with noninvasive ventilator with improvement in blood gases. An additional chest x-ray shows evidence of volume overload for which she was treated with 1 dose of Lasix. The patient was also suspected of having questionable pneumonia and UTI for which she has been receiving antibiotics. At the time of my evaluation, she is awake and is able to carry out a conversation. She is currently on Oxymizer. The patient has supplemental oxygen at home. According to , she needed this at night only until the recent past. PAST MEDICAL HISTORY: Positive for history of hypertension, atrial fibrillation, osteoporosis, osteoarthritis, obesity, volume overload, and congestive heart failure, along with diabetes mellitus. PAST SURGICAL HISTORY: No recent surgeries. PERSONAL AND SOCIAL HISTORY: Reviewed. MEDICATIONS: Noted. PHYSICAL EXAMINATION: GENERAL: This is an elderly woman awake, comfortable, able to carry out a conversation. VITAL SIGNS: Noted. HEENT: Normocephalic. Oral exam unremarkable. CARDIOVASCULAR: First and second heart sounds with some irregularity. RESPIRATORY: Diminished breath sounds. ABDOMEN: Obese. EXTREMITIES: Lower extremities show 2+ to 3+ leg edema with chronic dermatitis changes. LABORATORY DATA AND X-RAY: Reviewed. IMPRESSION: This is an 83-year-old woman admitted with:1) [id number] hypercapnic respiratory failure, acute component resolved with noninvasive ventilation. 2) Chronic hypoxemia. 3) Congestive heart failure with decompensation and mildly elevated BNP. 4) Questionable community-acquired pneumonia. 5) Comorbidities listed above. RECOMMENDATIONS: 1) Agree with present treatment. 2) Patient needs to be diuresed more aggressively, monitoring renal function. 3) Complete antibiotic course. 4) Noninvasive ventilation as needed. 5) Wean supplemental oxygen during the day if possible. 6) Further recommendations awaiting clinical improvement. May be appropriate to discharge home with hospice if patient and family understand the concepts of hospice care.
[2024-08-09] MEDS: Neurontin PO SCH (21:08)
[2024-08-10 06:03] LABS: Hematocrit 32.5 % (34.1-44.9); Hemoglobin 10.2 g/dL (11.2-15.7); Mean Cell Volume 107.3 fL (79.4-94.8); Mean Corpuscular Hemoglobin 33.7 pg (25.6-32.2); Mean Corpuscular Hgb Concent. 31.4 g/dL (32.2-35.5); Mean Platelet Volume 9.5 fL (9.4-12.3); Platelet Count 235 x10^3/uL (182-369); Red Blood Count 3.03 x10^6/uL (3.93-5.22); Red Cell Distribution Width 15.5 % (11.7-14.4); White Blood Count 23.5 x10^3/uL (3.98-10.04)
[2024-08-10 06:24] LABS: ALBUMIN 3.9 g/dL (3.5-5.0); ANION GAP 15.1 MEQ/L (5-15); BILIRUBIN,TOTAL 0.7 mg/dL (0.2-1.3); Calcium 8.5 mg/dL (8.4-10.2); Creatinine 1 0.59 mg/dL (0.52-1.04); EST GLOMERULAR FILTRATION RATE 89.4 ML/MIN; Total Protein 7.4 g/dL (6.3-8.2)
--- NOTE | 2024-08-10 08:55 | PCM.NOTE ---
Date and Time: 08/10/24 0844 Subjective Assessment: 08/09/24 Mrs. Siddiqui is an 83-year-old female with a history of COPD, CHF, chronic atrial fibrillation on Eliquis, and debility following back surgery. She had been receiving hospice care for respiratory decline and general debility but presented to the ED on 08/08/24 due to worsening respiratory failure. Upon EMS arrival, she was hypoxic and hypotensive, initially requiring a norepinephrine infusion. Her usual oxygen requirement is 2 to 3 liters via nasal cannula, but her family noted a decline in her oxygenation and increased her supplemental oxygen to 5 liters. Upon arrival at the ED, her blood pressure was 155 systolic off the norepinephrine drip. She was placed on BiPAP and achieved 100% oxygen s aturation. There were no reports of trauma, falls, or injuries. Yesterday, she remained on BiPAP throughout the day. She was started on Lasix 40 mg IV BID for bilateral pleural effusions and was given azithromycin and ceftriaxone, along with steroids, Xoponex, and Advair for pneumonia. Her had previously rescinded her DNR order and requested that she be a full code, which was discussed thoroughly with him. Pulmonology was consulted, but no changes were made to her treatment plan. A urine culture and sputum culture are pending, and she continues antibiotics for a suspected UTI. The IV in her left hand infiltrated last night, causing swelling in her hand and arm, which is currently elevated on a pillow. Her white blood cell count has increased, likely due to steroids, which were started yesterday. An ABG showed respiratory alkalosis. The Steen catheter will be discontinued, and a PureWick system will be placed. Hospice will be coming to speak with the patient and her abo id goals of care. The patient denies chest pain, abdominal pain, nausea, vomiting, or diarrhea. 08/10/24 Pt resting in bed. Today she is on highflow O2 at 100% and O2 sat is 97%. Lung sounds are wheezing throughout. Repeat CXR, Lactic acid, and BC x2 as WBC elevated at 23.5. UC + for proteus Penneri, antibiotic changed to Invanz per sensitivity report. Continue azithromycin for pneumonia as well. Continue Steroids, xoponex, advair. Pt has continued edema and will resume lasix BID. She denies CP, abd. pain, N/V/D. . - Review of Systems Constitutional: Weakness, No Fever, No Chills Eyes: No Symptoms Ears, Nose, & Throat: No Symptoms Respiratory: Short Of Breath, Wheezing, No Cough Cardiac: Edema, No Chest Pain, No Syncope Abdominal/Gastrointestinal: No Abdominal Pain, No Nausea, No Vomiting, No Diarrhea Genitourinary Symptoms: No Dysuria Musculoskeletal: No Back Pain, No Neck Pain Skin: No Rash Neurological: No Dizziness, No Focal Weakness, No Sensory Changes Psychological: No Symptoms Endocrine: No Symptoms Hematologic/Lymphatic: No Symptoms Immunological/Allergic: No Symptoms Objective Exam General Appearance: mild distress, alert, obese Neurologic Exam: alert, oriented x 3, cooperative, normal mood/affect, nml cerebellar function, sensation nml, motor weakness, No motor deficits Skin Exam: normal color, warm, dry Eye Exam: PERRL, EOMI, eyes nml inspection Ears, Nose, Throat Exam: normal ENT inspection, pharynx normal, moist mucous membranes Neck Exam: normal inspection, non-tender, supple, full range of motion Respiratory Exam: wheezing, No respiratory distress Cardiovascular Exam: regular rate/rhythm, normal heart sounds, edema (BLUE and BLLE) Gastrointestinal/Abdomen Exam: soft, No tenderness, No mass Extremity Exam: normal inspection, normal range of motion Back Exam: normal inspection, normal range of motion, No CVA tenderness, No vertebral tenderness Pelvic Exam: deferred Rectal Exam: deferred Objective Data Vital Signs: Vital Signs - 24 hr Temp Pulse Resp BP Pulse Ox 08/10/24 07:13 96.6 F 78 16 133/89 97 08/10/24 04:00 88 08/10/24 03:40 96.9 F 88 22 126/88 93 L 08/10/24 00:47 74 21 91 L 08/09/24 23:28 97.7 F 63 20 131/69 90 L 08/09/24 19:42 97.1 F 77 21 126/70 92 L 08/09/24 19:16 52 L 18 98 08/09/24 16:00 97.2 F 89 23 140/63 98 08/09/24 13:48 90 19 90 L 08/09/24 12:00 97.3 F 78 20 136/72 90 L Pain Assessment - Last Documented Pain Intensity 4 Pain Scale Used 0-10 Pain Scale Intake and Output: Intake & Output 08/07/24 08/08/24 08/09/24 08/10/24 11:59 11:59 11:59 11:59 Intake Total 120 1125 710 Output Total 850 1300 1250 Balance -730 -175 -540 Weight 101.1 kg Lab Results: Lab Results-Last 24 Hours 08/09/24 08/09/24 08/09/24 Range/Units 04:14 12:17 16:26 WBC (3.98-10.04) x10^3/uL RBC (3.93-5.22) x10^6/uL Hgb (11.2-15.7) g/dL Hct (34.1-44.9) % MCV (79.4-94.8) fL MCH (25.6-32.2) pg MCHC (32.2-35.5) g/dL RDW (11.7-14.4) % Plt Count (182-369) x10^3/uL MPV (9.4-12.3) fL Sodium (135-145) mmol/L Potassium (3.5-5.1) mmol/L Chloride (98-107) mmol/L Carbon Dioxide (22-30) mmol/L Anion Gap (5-15) MEQ/L BUN (7-17) mg/dL Creatinine (0.52-1.04) mg/dL Estimated GFR ML/MIN Glucose (74-106) mg/dL POC Glucometer 160 H 164 H (74 to 106) mg/dL Hemoglobin A1c 5.66 (4.5-6.0) % Lactic Acid (0.4-2.0) Calcium (8.4-10.2) mg/dL Total Bilirubin (0.2-1.3) mg/dL AST (14-36) U/L ALT (0-35) U/L Alkaline Phosphatase (38-126) U/L Serum Total Protein (6.3-8.2) g/dL Albumin (3.5-5.0) g/dL 08/09/24 08/10/24 08/10/24 Range/Units 21:03 05:48 05:48 WBC 23.5 H (3.98-10.04) x10^3/uL RBC 3.03 L (3.93-5.22) x10^6/uL Hgb 10.2 L (11.2-15.7) g/dL Hct 32.5 L (34.1-44.9) % MCV 107.3 H (79.4-94.8) fL MCH 33.7 H (25.6-32.2) pg MCHC 31.4 L (32.2-35.5) g/dL RDW 15.5 H (11.7-14.4) % Plt Count 235 (182-369) x10^3/uL MPV 9.5 (9.4-12.3) fL Sodium 136 (135-145) mmol/L Potassium 4.0 (3.5-5.1) mmol/L Chloride 94 L (98-107) mmol/L Carbon Dioxide 31 H (22-30) mmol/L Anion Gap 15.1 H (5-15) MEQ/L BUN 24 H (7-17) mg/dL Creatinine 0.59 (0.52-1.04) mg/dL Estimated GFR 89.4 ML/MIN Glucose 142 H (74-106) mg/dL POC Glucometer 181 H (74 to 106) mg/dL Hemoglobin A1c (4.5-6.0) % Lactic Acid (0.4-2.0) Calcium 8.5 (8.4-10.2) mg/dL Total Bilirubin 0.70 (0.2-1.3) mg/dL AST 40 H (14-36) U/L ALT 25 (0-35) U/L Alkaline Phosphatase 98 (38-126) U/L Serum Total Protein 7.4 (6.3-8.2) g/dL Albumin 3.9 (3.5-5.0) g/dL 08/10/24 08/10/24 Range/Units 07:07 08:15 WBC (3.98-10.04) x10^3/uL RBC (3.93-5.22) x10^6/uL Hgb (11.2-15.7) g/dL Hct (34.1-44.9) % MCV (79.4-94.8) fL MCH (25.6-32.2) pg MCHC (32.2-35.5) g/dL RDW (11.7-14.4) % Plt Count (182-369) x10^3/uL MPV (9.4-12.3) fL Sodium (135-145) mmol/L Potassium (3.5-5.1) mmol/L Chloride (98-107) mmol/L Carbon Dioxide (22-30) mmol/L Anion Gap (5-15) MEQ/L BUN (7-17) mg/dL Creatinine (0.52-1.04) mg/dL Estimated GFR ML/MIN Glucose (74-106) mg/dL POC Glucometer 129 H (74 to 106) mg/dL Hemoglobin A1c (4.5-6.0) % Lactic Acid 1.6 (0.4-2.0) Calcium (8.4-10.2) mg/dL Total Bilirubin (0.2-1.3) mg/dL AST (14-36) U/L ALT (0-35) U/L Alkaline Phosphatase (38-126) U/L Serum Total Protein (6.3-8.2) g/dL Albumin (3.5-5.0) g/dL Radiology Exams: Radiology Procedures Category Date Time Status CHEST 1 VIEW (PORTABLE) Stat Exams 08/10/24 07:46 Ordered Multi-Disciplinary Progress Notes: Multi-Disciplinary Progress Notes 08/09/24 16:17 Respiratory Note by Vee Olmstead Placed pt on heated high flow due to not tolerating bipap very well and increased wob. Nursing staff was cleaning pt up and changing the bed sheets. Pt became more sob and sats dropped. Once on HHF wob decreased and sats increased. HHF settings 50L, 100% FIO2. sats to 92% and 22 rr Initialized on 08/09/24 16:17 - END OF NOTE 08/09/24 14:28 OT Plan of Care Note by Shar (L#[id number])Soo OT Eval OT Inpatient Eval and POC Start: 08/09/24 10:07 Freq: ONCE Status: Complete Protocol: Created 08/09/24 10:08 BRIDGET (Rec: 08/09/24 10:08 BRIDGET [id number]) Document 08/09/24 14:11 KANWAL (Rec: 08/09/24 14:28 KANWAL [id number]) OT Evaluation Pradip WOODARD IS AGREEABLE TO OT EVALUATION WITH HER SPOUSE IN ROOM TO PROVIDE HISTORY. Pertinent Past Medical History SEE PMH BELOW Prior Level of Function PER SPOUSE, FOR THE LAST 5 WEEKS VANCE SLEPT IN HER RECLINER, COMPLETED STAND- [place] [facility] [place]. SHE REQUIRES ASSIST FOR ALL DRESSING, SPONGE BATHING, AND TOILETING HYGIENE TASKS. APPROXIMATELY 2 WEEKS AGO SHE BEGAN USING A LIFT CHAIR (LIFT FUNCTION FOR SIT<>STAND T/FS). SPOUSE REPORTS HOSPICE CARE PROVIDED AN AIDE ON FOR BATHING/ HYGIENE AND NURSING CARE FOR 1 HOUR MONDAY AND MONDAY. VANCE REPORTS THAT SHE EATS AND DRINKS BY USING HER RIGHT HAND, BUT DUE TO FATIGUE SHE REPORTS DIFFICULTY WITH TASK. SPOUSE REPORTS THAT SHE BECAME WEEK ON MONDAY WHERE SHE WENT TO SIT DOWN ON THE W/C, BUT SAT TOO CLOSE TO THE EDGE AND SLID OUT. THE PARAMEDICS ARRIVED TO ASSIST WITH TRANSFER BACK TO RECLINER. ON MONDAY SHE FELT TO WEEK TO COMPLETE HYGIENE AND DIFFICULTY VOIDING WITH COMPLICATIONS IN BREATHING. Equipment at Home Prior to Admission Walker,Wheelchair,Shower Chair Home Setup [id number],Sponge Bath Comment *SPONGE BATH ONLY; HAS NOT WALKED IN PAST MONTH (ONLY SIT <>STAND T/FS) Date 08/09/24 Feeding Impaired Comment MIN ASSIST Grooming Impaired Comment MOD ASSIST Bathing Impaired Comment DEPENDENT Dressing Impaired Comment MAX ASSIST Toileting Impaired Comment DEPENDENT (STEEN CATHETER PRESENT) Bed Mobility Impaired Comment MAX ASSIST X 2 PATIENT TYPICALLY SLEEPS IN A RECLINER, DOES OWN HOSPITAL BED BUT DOES NOT USE. Functional Transfers Impaired Comment UNABLE TO ASSESS DUE TO RESPIRATORY COMPLICATIONS AND INSTABILITY. OT RECOMMENDS DANIAL LIFT AT THIS TIME. Range of Motion Impaired Comment SIGNIFICANT BILATERAL SHOULDER AROM AND PROM IMPARIEMENTS. APPROXIMATELY 35-45 DEGREES OF ACTIVE BILATERAL SHOULDER FLEXION AND ABDUCTION AROM. BILATERAL ELBOW, FOREARM, WRIST AND DIGIT AROM WFL Coordination FINGER OPPOSITION TO THUMB BILATERAL WFL Functional Strength UNABLE TO ASSESS SHOULDER STRENGTH DUE TO SIGNIFICANT ROM IMPAIRMENTS. BILATERAL ELBOW FLEXION AND EXTENSION MMT: 3/5 MMT BILATTERAL FOREARM MMT: 3/5 MMT RIGHT RESPIRATORY THERAPY ASSISTANT STRENGTH: 4-/5 MMT LEFT RESPIRATORY THERAPY ASSISTANT STRENGTH:4-/5 MMT Functional Endurance POOR(-); PATIENT DESAT TO 84% WITH INCREASED WHEEZING WHILE SITTING AT EDGE OF BED; APPROXIMATELY 2 MINUTES. Cognition ALERT AND ORIENTED TO NAME; PARTICIPATED IN CONVERSATION AND PROVIDED HISTORY. Pain 5/10 PAIN IN DORSAL LEFT HAND. PATIENT OBSERVED WITH SIGNIFICANT REDNESS AND SWELLING IN LEFT DORSAL HAND ( NO PITTING EDEMA, BUT SWELLING NOTABLE). POOR CIRCULATION TO FINGERTIPS WITH OBSTRUCTION OF RINGS ON LEFT D4 DUE TO EDEMA. OT NOTIFIED RN AND FASTENER TECHNOLOGIST. Objective Data/Standardized Assessment(s HIGHTOWER: 0/6 INDICATING HIGH ) LEVEL OF DEPENDENCE FOR ADLS. Comment VANCE ON 8 LPM OF SUPPLEMENTAL OXYGEN AT 90-92% AT REST WHILE IN BED; DESAT TO 84% SITTING AT EDGE OF BED WITH HR 111-114 BPM. INCREASED O2 TO 9 LPM WITH NO IMPROVEMENT IN OXYGEN. RETURNED PATIENT TO SUPINE AND UPRIGHT SITTING IN BED WITH RT NOTIFIED. RT CAME TO ROOM AND INCREASED O2 TO 10 LPM AND O2 RETURNED TO 90% WITH HR IN 90S. OT Plan Of Care Date of Evaluation 08/09/24 Treatment Diagnosis WEAKNESS, RESPIRATORY DISTRESS Teaching Recipient Patient,Significant Other Patient is Aware of Diagnosis and Yes Prognosis Patient is receptive to Plan of Care and Yes contributory towards OT goals Rehabilitation Potential for Goals/ Guarded Barriers to Progress Discharge Recommendations/Plan PATIENT PRESENTS A POOR REHAB CANDIDATE DUE TO HER CURRENT PHYSICAL STATUS, WEAKNESS, AND RESPIRATORY INSTABILITY WITH ACTIVITY. HER GOAL IS TO RETURN HOME WITH HOSPICE IN WHICH SHE WOULD REQUIRE 24/7 CARE, DANIAL LIFT, AND ABILITY FOR CARGIVER TO PROVIDE PHYSICAL ASSIST FOR HYGIENE AND ADLS, AND MANAGE LIFT. Medical & Surgical History Past Medical History Yes Neurological History Peripheral Neuropathy ENT History No Pertinent History Endocrine History Diabetes Type II Respiratory History No Pertinent History,CHF Cardiac History Arrhythmia,High Cholesterol, Hypertension GI History No Pertinent History History No Pertinent History Female Reproductive Disorders No Pertinent History Musculoskeletal History No Pertinent History Psycho-Social History Anxiety Other Medical History a fib, history of left ankle fracture that did not require surgery Past Surgical History Yes Hx Anesthesia Reactions No Hx Malignant Hyperthermia No Neurological Surgical History No Pertinent History ENT Surgical History Cataract Surgery Respiratory Surgical History No Pertinent History Cardiac Surgical History No Pertinent History Gastrointestinal Surgical History Cholecystectomy Genitourinary Surgical History No Pertinent History Female Surgical History Hysterectomy Musculoskeletal Surgical History Orthopedic Surgery Other Surgical History 2 left ankle surgeries, rupa in left leg, back surgery X 2, lumpectomy, 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 TALKED TO SUPERVISOR PAINTING PRIVATELY- HE IS UNSURE IF PATIENT WILL BE ABLE TO DC STRAIGHT HOME FROM HERE, HE MAY BE INTERESTED IN A REHAB STAY FOR PATIENT IF NEEDED AND PATIENT AGREEABLE Original Note: S/W PATIENT AND FAMILY ABOUT GOALS OF CARE- THEY WOULD LIKE PATIENT TO GET M [facility] TREATMENT INDICATED, THEY WANT EVERYTHING DONE FOR PATIENT. DISCUSSED IN ORDER TO DO THAT, HOSPICE WILL NEED TO REVOCATE SERVICES SO SHE CAN STAY IN HOUSE AND GET TREATMENT ORDERED. PATIENT AND VERIFIED UNDERSTANDING AND WISH TO PROCEED WITH THIS. S/W LAMBERT KAY AT [facility]- SHE WAS NOTIFIED THAT PATIENT AND FAMILY WISH TO CONTINUE INTENSIVE TREATMENT HERE AT THE HOSPITAL. SHE VERIFIED UNDERSTANDING AND STATED THEY WOULD REVOCATE PATIENT FROM SERVICES TODAY. SHE ALSO STATED THAT WHEN PATIENT DISCHARGES HOME SHE CAN GO BACK ON TO THEIR SERVICES AT THAT TIME. S/W PATIENT AND FAMILY- NOTIFIED THAT HOSPICE WILL TAKE HER BACK ON SERVICE AT [place] IF THAT IS WHAT THEY WISH HER DC PLAN TO BE. PATIENT STATED SHE IS NOT INTERESTED IN A REHAB FACILITY STAY. HOPEFUL TO GET PATIENT BETTER AND BE ABLE TO TRANSFER TO AND FROM CHAIR SO HE CAN CARE FOR HER AT HOME AGAIN. BOTH PATIENT AND WISH TO DC HOME BACK ON [facility] AT TIME OF DC. [facility] WILL NEED NOTIFIED AT TIME OF DC AT [phone] [facility] WILL NEED NEW ORDER FROM [facility] AT THAT TIME. IT CAN BE FAXED WITH DC INSTRUCTIONS, DC MED LIST AND DC SUMMARY TO [phone]. Initialized on 08/09/24 11:39 - END OF NOTE Assessment/Plan (1) Pneumonia Current Visit: Yes Status: Acute Code(s): J18.9 - PNEUMONIA, UNSPECIFIED ORGANISM (2) Acute respiratory failure Current Visit: Yes Status: Acute Code(s): J96.00 - ACUTE RESPIRATORY FAILURE, UNSP W HYPOXIA OR HYPERCAPNIA (3) UTI (urinary tract infection) Current Visit: Yes Status: Acute Code(s): N39.0 - URINARY TRACT INFECTION, SITE NOT SPECIFIED (4) CHF (congestive heart failure) Current Visit: No Status: Acute Code(s): I50.9 - HEART FAILURE, UNSPECIFIED (5) Pleural effusion due to congestive heart failure Current Visit: Yes Status: Acute Code(s): I50.9 - HEART FAILURE, UNSPECIFIED (6) IV infiltrate Current Visit: Yes Status: Acute Code(s): T80.1XXA - VASCULAR COMP FOL INFUSN, TRANFS AND THERAPUTC INJECT, INIT (7) Afib Current Visit: No Status: Chronic Qualifiers: Atrial fibrillation type: longstanding persistent Qualified Code(s): I48.11 - Longstanding persistent atrial fibrillation Code(s): I48.91 - UNSPECIFIED ATRIAL FIBRILLATION (8) Hypothyroid Current Visit: No Status: Chronic Code(s): E03.9 - HYPOTHYROIDISM, UNSPECIFIED (9) Type 2 diabetes mellitus Current Visit: No Status: Chronic Qualifiers: Diabetes mellitus board[place] steam insulin use: with nursing home use Diabetes mellitus complication status: with circulatory complication Diabetes mellitus complication detail: with other circulatory complications Qualified Code(s): E11.59 - Type 2 diabetes mellitus with other circulatory complications; Z79.4 - [facility] (current) use of insulin (10) Weakness Current Visit: No Status: Chronic Assessment & Plan: (1) Pneumonia Current Visit: Yes Status: Acute Assessment & Plan: - CXR: IMPRESSION: 1. Perihilar patchy airspace opacities bilaterally, more in the right mid to lower zone. Imaging appearances might be suggestive of pulmonary edema and/or infective/inflammatory changes. Interval new. Clinical correlation is suggested. 2. Blunting of bilateral costophrenic angles representing underlying pleural effusions, more on the right side (new). -Azithromycin and ceftriaxone, steroids, Xoponex, and Advair - Oxymizer 5l 94%- baseline 2-3 liters - Was on Bipap yesterday - ABG shows Resp alkalosis - Sputum culture pending 08/10/24 - High-flow oxygen 100%- O2 sat 97% - + wheezing throughout - BC X2 - Repeat CXR - Lactic acid 1.6 -WNL - Stopped ceftriaxone- started Invanz - Continue Azithromycin - WBC 23.5 - CBC, CMP reviewed Code(s): J18.9 - PNEUMONIA, UNSPECIFIED ORGANISM (2) Acute respiratory failure Current Visit: Yes Status: Acute Assessment & Plan: - Pulm consult - ABG reviewed - 2:2 pneumonia & CHF - See Pneumonia plan Code(s): J96.00 - ACUTE RESPIRATORY FAILURE, UNSP W HYPOXIA OR HYPERCAPNIA (3) UTI (urinary tract infection) Current Visit: Yes Status: Acute Assessment & Plan: - IV antibiotic - UC pending - D/C Steen - Place purewick 08/10 - UC + Proteus Penneri - Ceftriaxone changed to Invanz based on sensitivity results Code(s): N39.0 - URINARY TRACT INFECTION, SITE NOT SPECIFIED (4) CHF (congestive heart failure) Current Visit: No Status: Acute Assessment & Plan: - Acute on chronic - Lasix increased to 40 IV BID - BNP 829 - Echo 01/16/24 - EF 58% - CXR reviewed - Continue home meds - Edema improved today, yesterday has 3+ pitting edema of BLLE 08/10 - + BLLE and BLUE edema - Elevate extremities - Continue Lasix Code(s): I50.9 - HEART FAILURE, UNSPECIFIED (5) Pleural effusion due to congestive heart failure Current Visit: Yes Status: Acute Assessment & Plan: - As seen on CXR - LASIX 40 BID IV - O2 oxymizer 5LNC 94% - See CHF plan Code(s): I50.9 - HEART FAILURE, UNSPECIFIED (6) IV infiltrate Current Visit: Yes Status: Acute Assessment & Plan: - IV of left hand infiltrated last night (08/09)- left arm and hand swollen and bruised - Left arm elevated on pillow to decrease edema Code(s): T80.1XXA - VASCULAR COMP FOL INFUSN, TRANFS AND THERAPUTC INJECT, INIT (7) Afib Current Visit: No Status: Chronic Qualifiers: Atrial fibrillation type: longstanding persistent Qualified Code(s): I48.11 - Longstanding persistent atrial fibrillation Assessment & Plan: - Tele - Eliquis - Continue cardizem - Metoprolol Code(s): I48.91 - UNSPECIFIED ATRIAL FIBRILLATION (8) Hypothyroid Current Visit: No Status: Chronic Assessment & Plan: - Continue synthroid Code(s): E03.9 - HYPOTHYROIDISM, UNSPECIFIED (9) Type 2 diabetes mellitus Current Visit: No Status: Chronic Qualifiers: Diabetes mellitus nursing home insulin use: with nursing home use Diabetes mellitus complication status: with circulatory complication Diabetes mellitus complication detail: with other circulatory complications Qualified Code(s): E11.59 - Type 2 diabetes mellitus with other circulatory complications; Z79.4 - [facility] (current) use of insulin Assessment & Plan: - Accuchecks Q4 as pt is not eating well- consider changing to AC/HS - Humalog S/S - Steroids may increase glucose- monitor - A1C 5.66- controlled (10) Weakness Current Visit: No Status: Chronic Assessment & Plan: - Chronic weakness - PT/OT - PT wants to be full code and get stronger- may need rehab placement - Hospice to discuss goals of care VTE: Shari PPI: Protonix Next of KIN: Code status: Full D/C plan: 2-3 days Code(s): R53.1 - WEAKNESS Code(s): R53.1 - WEAKNESS
--- NOTE | 2024-08-10 09:27 | XRAY ---
CLINICAL HISTORY: increased WBC, Shortness of breath COMPARISON: study dated 08/07/2024 TECHNIQUE: An X-ray image of the chest is obtained in AP projection. FINDINGS: Pulmonary Parenchyma: Perihilar patchy airspace opacities bilaterally, more in the right mid to lower zone. Diffuse Prominent bronch vascular markings and claribel Blunting of bilateral costophrenic angles representing underlying pleural effusion, more on the right side. Heart and Mediastinum: The heart size cannot be commented on in this projection. The mediastinal widening can be projectional. No hilar or mediastinal lymphadenopathy. Bony Thorax: Degenerative changes in the visualized skeleton. Soft Tissues: Soft tissues overlying the chest wall are unremarkable. Overlying chest leads are seen. IMPRESSION: 1. Unchanged features of pulmonary congestion. 2. Blunting of bilateral costophrenic angles representing underlying pleural effusion, more on the right side. 3. No interval changes. Electronically Signed by: Daniel Fatima MD. (08/10/2024 08:40:01 EDT)
[2024-08-10 11:38] VITALS: BP 133/74; TEMP 97.1
--- NOTE | 2024-08-10 11:58 | PCM.DS ---
Discharge Summary Date of Admission: 08/09/24 10:00 Date of Discharge: 08/10/24 Admitting Physician: LAMINE BONNER MD Consults: Consults on Case 08/08/24 10:21 Consult Pulmonology ROUTINE Primary Care Provider: CRUZ GONZALES NP Allergies Allergies No Known Drug Allergies Allergy (Verified 01/15/24 01:34) Hospital Summary - Hospital Course Hospital Course: On 08/09/24, Mrs. Williamson, an 83-year-old female with a history of COPD, CHF, chronic atrial fibrillation on Eliquis, and debility following back surgery, presented to the ED due to worsening respiratory failure. She had been receiving hospice care for respiratory decline and general debility but was brought in by EMS after becoming hypoxic and hypotensive, initially requiring a norepinephrine infusion. Her family had increased her supplemental oxygen to 5L due to declining oxygenation. In the ED, her blood pressure stabilized at 155 systolic off norepinephrine, and she was placed on BiPAP, achieving 100% oxygen saturation. She was started on IV Lasix for bilateral pleural effusions, along with azithromycin, ceftriaxone, steroids, Xoponex, and Advair for pneumonia. Pulmonology was consulted, and a urine culture and sputum culture were sent, with the patient continuing antibiotics for a suspected UTI. Overnight, her IV infiltrated, causing swelling in her left hand and arm, which was elevated on a pillow. Her WBC count increased, likely due to steroids, and ABG showed respiratory alkalosis. A Srinivasan catheter was discontinued in favor of a PureWick system. Hospice was scheduled to discuss goals of care with the patient and her , who had previously rescinded her DNR status, making her a full code. On 08/10/24, the patient remained in bed on high-flow oxygen at 100%, maintaining a 97% O2 saturation with wheezing throughout her lung osorio. Due to an elevated WBC count of 23.5, a repeat chest X-ray, lactic acid, and blood cultures were ordered. Her urine culture returned positive for Proteus penneri, and her ant ibiotic regimen was adjusted to Invanz per sensitivity results while continuing azithromycin for pneumonia. Steroids, Xoponex, and Advair were continued. She had persistent edema, prompting resumption of BID Lasix. Later, she developed increased shortness of breath and was placed back on BiPAP. A repeat chest X-ray showed no changes, but due to the absence of weekend radiology services, her pleural effusion could not be drained. Given the potential need for intubation, the patient expressed her wish to transfer to a higher level of care and declined hospice. She was accepted for transfer to [facility]. - Vitals & Intake/Output Vital Signs: Vital Signs Temperature 97.1 F 08/10/24 11:38 Pulse Rate 85 08/10/24 11:38 Respiratory Rate 17 08/10/24 11:38 Blood Pressure 133/74 08/10/24 11:38 O2 Sat by Pulse Oximetry 98 08/10/24 11:38 Intake & Output: Intake & Output 08/07/24 08/08/24 08/09/24 08/10/24 11:59 11:59 11:59 11:59 Intake Total 120 1125 910 Output Total 850 1300 1250 Balance -730 -175 -340 Weight 101.1 kg - Lab Result Diagrams: 08/10/24 05:48 08/10/24 05:48 Lab Results-Last 24 Hrs: Lab Results-Last 24 Hours 08/09/24 08/09/24 08/09/24 Range/Units 12:17 16:26 21:03 WBC (3.98-10.04) x10^3/uL RBC (3.93-5.22) x10^6/uL Hgb (11.2-15.7) g/dL Hct (34.1-44.9) % MCV (79.4-94.8) fL MCH (25.6-32.2) pg MCHC (32.2-35.5) g/dL RDW (11.7-14.4) % Plt Count (182-369) x10^3/uL MPV (9.4-12.3) fL Sodium (135-145) mmol/L Potassium (3.5-5.1) mmol/L Chloride (98-107) mmol/L Carbon Dioxide (22-30) mmol/L Anion Gap (5-15) MEQ/L BUN (7-17) mg/dL Creatinine (0.52-1.04) mg/dL Estimated GFR ML/MIN Glucose (74-106) mg/dL POC Glucometer 160 H 164 H 181 H (74 to 106) mg/dL Lactic Acid (0.4-2.0) Calcium (8.4-10.2) mg/dL Total Bilirubin (0.2-1.3) mg/dL AST (14-36) U/L ALT (0-35) U/L Alkaline Phosphatase (38-126) U/L Serum Total Protein (6.3-8.2) g/dL Albumin (3.5-5.0) g/dL 08/10/24 08/10/24 08/10/24 Range/Units 05:48 05:48 07:07 WBC 23.5 H (3.98-10.04) x10^3/uL RBC 3.03 L (3.93-5.22) x10^6/uL Hgb 10.2 L (11.2-15.7) g/dL Hct 32.5 L (34.1-44.9) % MCV 107.3 H (79.4-94.8) fL MCH 33.7 H (25.6-32.2) pg MCHC 31.4 L (32.2-35.5) g/dL RDW 15.5 H (11.7-14.4) % Plt Count 235 (182-369) x10^3/uL MPV 9.5 (9.4-12.3) fL Sodium 136 (135-145) mmol/L Potassium 4.0 (3.5-5.1) mmol/L Chloride 94 L (98-107) mmol/L Carbon Dioxide 31 H (22-30) mmol/L Anion Gap 15.1 H (5-15) MEQ/L BUN 24 H (7-17) mg/dL Creatinine 0.59 (0.52-1.04) mg/dL Estimated GFR 89.4 ML/MIN Glucose 142 H (74-106) mg/dL POC Glucometer 129 H (74 to 106) mg/dL Lactic Acid (0.4-2.0) Calcium 8.5 (8.4-10.2) mg/dL Total Bilirubin 0.70 (0.2-1.3) mg/dL AST 40 H (14-36) U/L ALT 25 (0-35) U/L Alkaline Phosphatase 98 (38-126) U/L Serum Total Protein 7.4 (6.3-8.2) g/dL Albumin 3.9 (3.5-5.0) g/dL 08/10/24 08/10/24 Range/Units 08:15 11:27 WBC (3.98-10.04) x10^3/uL RBC (3.93-5.22) x10^6/uL Hgb (11.2-15.7) g/dL Hct (34.1-44.9) % MCV (79.4-94.8) fL MCH (25.6-32.2) pg MCHC (32.2-35.5) g/dL RDW (11.7-14.4) % Plt Count (182-369) x10^3/uL MPV (9.4-12.3) fL Sodium (135-145) mmol/L Potassium (3.5-5.1) mmol/L Chloride (98-107) mmol/L Carbon Dioxide (22-30) mmol/L Anion Gap (5-15) MEQ/L BUN (7-17) mg/dL Creatinine (0.52-1.04) mg/dL Estimated GFR ML/MIN Glucose (74-106) mg/dL POC Glucometer 166 H (74 to 106) mg/dL Lactic Acid 1.6 (0.4-2.0) Calcium (8.4-10.2) mg/dL Total Bilirubin (0.2-1.3) mg/dL AST (14-36) U/L ALT (0-35) U/L Alkaline Phosphatase (38-126) U/L Serum Total Protein (6.3-8.2) g/dL Albumin (3.5-5.0) g/dL Micro Results-Entire Visit: Microbiology 08/07/24 23:45 Urine Culture - Final Urine, Catheterized Proteus Penneri Accuchecks Date 08/10/24 Date 08/10/24 Date 08/09/24 Time 11:37 Time 07:12 Time 16:54 - Radiology Exams Ordered Rad Exams-Entire Visit: Radiology Procedures Category Date Time Status CHEST 1 VIEW (PORTABLE) Stat Exams 08/10/24 07:46 Completed - Procedures and Test Procedures and Tests throughout Hospitalization: Therapy Orders & Screens 08/07/24 23:34 BiPap/CPAP ROUTINE Comment: 08/08/24 03:20 ST Eval & Treat (MD Order) ROUTINE Comment: Physician Instructions: Reason For Exam: Evaluate: Yes Treat: Yes Reason for Eval: possible aspiration. Evaluate for dysphagia Diagnosis: Respiratory distress, pneumonia 08/08/24 03:21 BiPap/CPAP ROUTINE Comment: Diagnosis: Respiratory distress, pneumonia 08/08/24 03:25 Respiratory Therapy Assessment DAILY Comment: Diagnosis: Respiratory distress, pneumonia 08/08/24 03:28 Respiratory MDI BID Comment: Diagnosis: Respiratory distress, pneumonia 08/08/24 06:39 Oxygen NASAL CANNULA 2 lpm Comment: Diagnosis: Respiratory distress, pneumonia 08/09/24 10:07 PT Eval & Treat (MD Order) ONCE Reason for Eval:: weakness, possible need for placement Diagnosis: Respiratory distress, pneumonia OT Eval and Treat (MD Order) ONCE Comment: Physician Instructions: Reason For Exam: Evaluate: Yes Treat: Yes Reason for Evaluation: weakness, possible need for placement Diagnosis: Respiratory distress, pneumonia 08/09/24 16:16 Oxygen High Flow per RT 50% Comment: wean as tolerated Diagnosis: Respiratory distress, pneumonia Discharge Exam General Appearance: no apparent distress, alert, obese Neurologic Exam: alert, oriented x 3, cooperative, normal mood/affect, nml cerebellar function, sensation nml, No motor deficits Eye Exam: PERRL, EOMI, eyes nml inspection Ears, Nose, Throat Exam: normal ENT inspection, pharynx normal, moist mucous membranes Neck Exam: normal inspection, non-tender, supple, full range of motion Respiratory Exam: wheezing, No respiratory distress Cardiovascular Exam: regular rate/rhythm, normal heart sounds Gastrointestinal/Abdomen Exam: soft, No tenderness, No mass Pelvic Exam: deferred Rectal Exam: deferred Back Exam: normal inspection, normal range of motion, No CVA tenderness, No vertebral tenderness Extremity Exam: normal inspection, normal range of motion Skin Exam: normal color, warm, dry Final Diagnosis/Problem List - Final Discharge Diagnosis/Problem (1) Pneumonia Current Visit: Yes Status: Acute Code(s): J18.9 - PNEUMONIA, UNSPECIFIED ORGANISM (2) Acute respiratory failure Current Visit: Yes Status: Acute Code(s): J96.00 - ACUTE RESPIRATORY FAILURE, UNSP W HYPOXIA OR HYPERCAPNIA (3) UTI (urinary tract infection) Current Visit: Yes Status: Acute Code(s): N39.0 - URINARY TRACT INFECTION, SITE NOT SPECIFIED (4) CHF (congestive heart failure) Current Visit: No Status: Acute Code(s): I50.9 - HEART FAILURE, UNSPECIFIED (5) Pleural effusion due to congestive heart failure Current Visit: Yes Status: Acute Code(s): I50.9 - HEART FAILURE, UNSPECIFIED (6) IV infiltrate Current Visit: Yes Status: Acute Code(s): T80.1XXA - VASCULAR COMP FOL INFUSN, TRANFS AND THERAPUTC INJECT, INIT (7) Afib Current Visit: No Status: Chronic Code(s): I48.91 - UNSPECIFIED ATRIAL FIBRILLATION (8) Hypothyroid Current Visit: No Status: Chronic Code(s): E03.9 - HYPOTHYROIDISM, UNSPECIFIED (9) Type 2 diabetes mellitus Current Visit: No Status: Chronic (10) Weakness Current Visit: No Status: Chronic Assessment & Plan: (1) Pneumonia Current Visit: Yes Status: Acute Assessment & Plan: - CXR: IMPRESSION: 1. Perihilar patchy airspace opacities bilaterally, more in the right mid to lower zone. Imaging appearances might be suggestive of pulmonary edema and/or infective/inflammatory changes. Interval new. Clinical correlation is suggested. 2. Blunting of bilateral costophrenic angles representing underlying pleural effusions, more on the right side (new). -Azithromycin and ceftriaxone, steroids, Xoponex, and Advair - Oxymizer 5l 94%- baseline 2-3 liters - Was on Bipap yesterday - ABG shows Resp alkalosis - Sputum culture pending 08/10/24 - High-flow oxygen 100%- O2 sat 97% - + wheezing throughout - BC X2 - Repeat CXR: 1. Unchanged features of pulmonary congestion. 2. Blunting of bilateral costophrenic angles representing underlying pleural effusion, more on the right side. 3. No interval changes. - Lactic acid 1.6 -WNL - Stopped ceftriaxone- started Invanz - Continue Azithromycin - WBC 23.5 - CBC, CMP reviewed - Steroids increased to Q6 hr Code(s): J18.9 - PNEUMONIA, UNSPECIFIED ORGANISM (2) Acute respiratory failure Current Visit: Yes Status: Acute Assessment & Plan: - Pulm consult - ABG reviewed - 2:2 pneumonia & CHF - See Pneumonia plan 08/10 - tx to higher level of care for acute decline Code(s): J96.00 - ACUTE RESPIRATORY FAILURE, UNSP W HYPOXIA OR HYPERCAPNIA (3) UTI (urinary tract infection) Current Visit: Yes Status: Acute Assessment & Plan: - IV antibiotic - UC pending - D/C Srinivasan - Place purewick 08/10 - UC + Proteus Penneri - Ceftriaxone changed to Invanz based on sensitivity results Code(s): N39.0 - URINARY TRACT INFECTION, SITE NOT SPECIFIED (4) CHF (congestive heart failure) Current Visit: No Status: Acute Assessment & Plan: - Acute on chronic - Lasix increased to 40 IV BID - BNP 829 - Echo 01/16/24 - EF 58% - CXR reviewed - Continue home meds - Edema improved today, yesterday has 3+ pitting edema of BLLE 08/10 - + BLLE and BLUE edema - Elevate extremities - Continue Lasix Code(s): I50.9 - HEART FAILURE, UNSPECIFIED (5) Pleural effusion due to congestive heart failure Current Visit: Yes Status: Acute Assessment & Plan: - As seen on CXR - LASIX 40 BID IV - O2 oxymizer 5LNC 94% - See CHF plan Code(s): I50.9 - HEART FAILURE, UNSPECIFIED (6) IV infiltrate Current Visit: Yes Status: Acute Assessment & Plan: - IV of left hand infiltrated last night (08/09)- left arm and hand swollen and bruised - Left arm elevated on pillow to decrease edema Code(s): T80.1XXA - VASCULAR COMP FOL INFUSN, TRANFS AND THERAPUTC INJECT, INIT (7) Afib Current Visit: No Status: Chronic Qualifiers: Atrial fibrillation type: longstanding persistent Qualified Code(s): I48.11 - Longstanding persistent atrial fibrillation Assessment & Plan: - Tele - Eliquis - Continue cardizem - Metoprolol Code(s): I48.91 - UNSPECIFIED ATRIAL FIBRILLATION (8) Hypothyroid Current Visit: No Status: Chronic Assessment & Plan: - Continue synthroid Code(s): E03.9 - HYPOTHYROIDISM, UNSPECIFIED (9) Type 2 diabetes mellitus Current Visit: No Status: Chronic Qualifiers: Diabetes mellitus 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 Diabetes mellitus complication status: with circulatory complication Diabetes mellitus complication detail: with other circulatory complications Qualified Code(s): E11.59 - Type 2 diabetes mellitus with other circulatory complications; Z79.4 - [facility] (current) use of insulin Assessment & Plan: - Accuchecks Q4 as pt is not eating well- consider changing to AC/HS - Humalog S/S - Steroids may increase glucose- monitor - A1C 5.66- controlled (10) Weakness Current Visit: No Status: Chronic Assessment & Plan: - Chronic weakness - PT/OT - PT wants to be full code and get stronger- may need rehab placement - Hospice to discuss goals of care Code(s): R53.1 - WEAKNESS - Discharge Discharge Date: 08/10/24 [facility] Condition: Stable Prescriptions: Continue Calcium Carb, Citrate/Vit D3 [Calcium + D3 ER Tablet] 1 tab PO DAILY Levothyroxine Sodium 100 Mcg [Synthroid 100 Mcg] 100 mcg PO DAILY Gabapentin 400 mg PO DAILY Aripiprazole [Abilify] 2 mg PO DAILY Amiodarone HCl 200 mg [Cordarone 200 MG] 200 mg PO .EVERY OTHER DAY Duloxetine HCl 60 mg PO HS Fluticasone/Vilanterol [Breo Ellipta 100-25 Mcg Inhalr] 1 inhaler IH DAILY Alendronate Sodium 70 mg [Fosamax 70 MG] 70 mg PO WEEKLY Apixaban [Eliquis 2.5 mg Tablet] 2.5 mg PO BID Meloxicam 7.5 mg PO DAILY Dulaglutide [Trulicity] 0.75 mg IN WEEKLY Losartan Potassium 50 mg PO DAILY Multivitamin/Iron/Folic Acid [Centrum Adults Tablet] 1 tab PO DAILY Furosemide 20 mg [Lasix 20 mg] 20 mg PO BID dilTIAZem HCL [Cardizem Cd] 300 mg PO DAILY Pravastatin Sodium 20 mg PO DAILY PANTOPRAZOLE 40 mg Tablet [Protonix 40MG Tablet] 40 mg PO DAILY Metoprolol Succinate 50 mg PO BID Acetaminophen [Tylenol] 325 mg PO DAILY PRN PRN PRN Reason: Pain Potassium Chloride 10 meq PO BID Follow up with: CRUZ GONZALES FABRICATION MANAGER [Primary Care Provider] -
[2024-08-10] MEDS: solu-MEDROL 40 MG, Sterile H2O 10 ml 1 ML IV SCH (12:31)
[2024-08-10 13:25] VITALS: PULSE 79; RESP 27; O2SAT 93
[2024-08-10] MEDS: AZACTAM 1 GM*** 2 GM in Sodium Chloride 0.9% 100 ML IV SCH (13:34)
[2024-08-10] MEDS ORDERED: ZITHROMAX IV*** 500 MG in Sodium Chloride 0.9% 250 ML 250 ML IV SCH (22:00)
== END 2024-08-10 16:25 | disposition short-term general hospital (02) | DRG 193 ==
LOC: ED 23:15 → UNDOADMOB 08-08 03:03 → MED SURG 08-08 03:03 → OBSVTOIN 08-09 10:00
PROVIDERS: ADMIT Internal Medicine; ATTEND Internal Medicine
DX: J18.9 Pneumonia, unspecified organism (principal); J96.00 Acute respiratory failure, unspecified whether with hypoxia or hypercapnia; N39.0 Urinary tract infection, site not specified; T80.1XXA Vascular complications following infusion, transfusion and therapeutic injection, initial encounter; B96.4 Proteus (mirabilis) (morganii) as the cause of diseases classified elsewhere; I11.0 Hypertensive heart disease with heart failure; I50.9 Heart failure, unspecified; I48.91 Unspecified atrial fibrillation; E03.9 Hypothyroidism, unspecified; E11.9 Type 2 diabetes mellitus without complications; R53.1 Weakness; J44.9 Chronic obstructive pulmonary disease, unspecified; R60.0 Localized edema; Z79.4 Long term (current) use of insulin; Z79.01 Long term (current) use of anticoagulants; Z79.899 Other long term (current) drug therapy; Z99.81 Dependence on supplemental oxygen
CPT/HCPCS: 0241U; 36415; 36600; 70450; 71045; 80048; 80053; 81001; 82375; 82803; 82947; 83036; 83605; 83735; 83880; 84134; 84484; 85025; 85027; 87040; 87077; 87086; 87186; 93005; 93041; 93268; 94002; 94003; 94640; 94760; 94762; 97163; 97166; 99285; G0378; Q3014; J0456; J0696; J1817; J1940; J2270; J2919; A9270-GY